=== PATIENT | male | born 1970 | race Caucasian/White ===

== ENCOUNTER → 2022-05-10 | Outpatient (CLI) | payer OTHER, SELFPAY ==
--- NOTE | 2022-05-10 14:40 | NEURO ---
NCS and/or EMG Patient Report Ordering Doctor: Vito Tse DATE OF SERVICE: 05/10/22 Indication: Bilateral lower extremity numbness, tingling and cold sensations. Superimposed, significant lower back pain. Findings: Nerve conduction studies were performed in the right and left lower extremities. The right peroneal motor study recording the extensor digitorum brevis showed an absent response. The right tibial motor study recording the abductor hallucis brevis showed an absent response. The right sural sensory response was absent. The right superficial peroneal sensory response was absent. The left peroneal motor study recording the extensor digitorum brevis showed an absent response. The left tibial motor study recording the abductor hallucis brevis showed an absent response. The left sural sensory response was absent. The left superficial peroneal sensory response was absent. Due to the absent responses in the lower extremities, the left radial sensory response was obtained. It showed a reduced amplitude, normal peak latency and normal conduction velocity. Needle EMG of the left lower extremity and paraspinal muscles was performed. No active denervation was present in any muscle, though insertional activity was increased in the medial gastrocnemius. Motor units were large amplitude and long duration in distal muscles. Several muscles were limited in activation (patient citing back pain). Impression: This is a markedly abnormal study. There is electrophysiologic evidence of a severe, generalized, sensorimotor, peripheral neuropathy. Due to the complete lack of motor responses in the lower extremities the primary pathophysiology (e.g. axonal, demyelinating, mixed) cannot be determined by this examination. In addition, there was no electrophysiologic evidence a superimposed lumbar radiculopathy. Ciro Hall D.O. Multi Select Codes Neurology Neurology Interp Codes: 45434-82 Musc test done w/n test comp (interp) and 90050-86 Nrv cndj test 9-10 studies (interp)
== END | disposition home or self-care (01) ==
PROVIDERS: Referring Provider Orthopaedic Surgery; Visit Provider Orthopaedic Surgery
DX: M47.26 Other spondylosis with radiculopathy, lumbar region (principal); R20.2 Paresthesia of skin
CPT/HCPCS: 95886; 95911

== ENCOUNTER → 2025-06-10 | Outpatient (CLI) | payer MEDICAID, SELFPAY ==
--- OUTSIDE RECORDS SUMMARY | 2025-06-10 09:10 | XMS RPT_ITS ---
Author Name Auto Generated Organization OHIP Support Name Relationship Address Phone LIZY WARREN Next of Kin [address] [place] [address] + ~([phone] LIZY WARREN Next of Kin [address] [place] [address] [place] [address] + ~(330 LIZY WARREN Next of Kin [address] [place] [address] + ~(330 LIZY WARREN Next of Kin [address] [place] [address] [place] [address] + ~(330 LIZY WARREN Next of Kin [address] [place] [address] [place] [address] + LIZY WARREN Next of Kin [address] [place] [address] [place] [address] + UN Next of Kin Unknown Unavailable LIZY WARREN Next of Kin [address] [place] [address] [place] [address] + ~(330 LIZY WARREN Next of Kin [address] [place] [address] [place] [address] + LIZY WARREN Next of Kin [address] [place] [address] [place] [address] + LIZY WARREN Next of Kin [address] [place] [address] [place] [address] + ~(330 JOBY WARREN Next of Kin [address] [place] [address] + LIZY WARREN Next of Kin [address] [place] [address] Unavailable NOT GIVEN Next of Kin Unknown Unavailable DRAWREBECCA, JOBY Next of Kin [address] [place] [address] + DRAWJEANIE FERNANDEZON Next of Kin [address] [place] [address] Unavailable NOT GIVEN Next of Kin Unknown Unavailable DRAWBRIDGE, LIZY Next of Kin [address] [place] [place] [address] + JEANIE WARRENON Next of Kin [address] [place] [address] + UN Next of Kin Unknown Unavailable DRAWJOBY FERNANDEZ Next of Kin [address] [place] [address] + LIZY WARREN Next of Kin [address] [place] [address] Unavailable NOT GIVEN Next of Kin Unknown Unavailable DRAWREBECCA, LIZY Next of Kin Unknown Unavailab le DRAWBRIDGE, JOBY Next of Kin Unknown Unavailab le DRAWJEANIE FERNANDEZON Next of Kin [address] [place] [address] + DRAWBRIDGEJEANIEON Next of Kin [address] [place] [address] + UN Next of Kin Unknown Unavailable DRAWJEANIE FERNANDEZON Next of Kin [address] [place] [address] + ~(330 DRAWBRIDGE, LIZY Next of Kin [address] [place] [address] + ~(330 DRAWBRIDGE, LIZY Next of Kin [address] [place] [address] + ~(330 DRAWBRIDGE, LIZY Next of Kin [address] [place] [address] + ~(330 DRAWBRIDGE, LIZY Next of Kin [address] [place] [address] + ~(330 DRAWBRIDGE, LIZY Next of Kin [address] [place] [address] + ~(330 DRAWBRIDGE, LIZY Next of Kin [address] [address] + ~(330 DRAWBRIDGE, LIZY Next of Kin [address] [facility] [address] + DRAWBRIDGE, LIZY Next of Kin [address] [place] [address] + UN Next of Kin Unknown Unavailable DRAWBRIDGE, LIZY Next of Kin Unknown Unavailab le DRAWBRIDGE, JOBY Next of Kin Unknown Unavailab le DRAWBRIDGE, LIZY Next of Kin [address] [place] [address] + DRAWBRIDGE, LIZY Next of Kin [address] [place] [address] + DRAWBRIDGE, LIZY Next of Kin Unknown Unavailab le DRAWBRIDGE, JOBY Next of Kin Unknown Unavailab le DRAWBRIDGE, LIZY Next of Kin Unknown Unavailab le DRAWBRIDGE, JOBY Next of Kin Unknown Unavailab le DRAWBRIDGE, JOBY Next of Kin [address] [place] [address] + DRAWBRIDGE, LIZY Next of Kin [address] [place] [address] Unavailable NOT GIVEN Next of Kin Unknown Unavailable DRAWBRIDGE, LIZY Next of Kin Unknown Unavailab le DRAWBRIDGE, JOBY Next of Kin Unknown Unavailab le DRAWBRIDGE, LIZY Next of Kin Unknown Unavailab le DRAWBRIDGE, JOBY Next of Kin Unknown Unavailab le DRAWBRIDGE, JOBY Next of Kin [address] [place] [address] + DRAWBRIDGE, LIZY Next of Kin [address] [place] [address] Unavailable NOT GIVEN Next of Kin Unknown Unavailable DRAWBRIDGE, LIZY Next of Kin [address] [place] [address] + DRAWBRIDGE, LIZY Next of Kin [address] [place] [address] + DRAWBRIDGE, LIZY Next of Kin [address] [place] [address] Unavailable LIDIA MAYERS Next of Kin [address] [place] [id number] + NOT GIVEN Next of Kin Unknown Unavailable DRAWBRIDGE, LIZY Next of Kin [address] [place] [address] Unavailable LIDIA MAYERS Next of Kin [address] [place], [place] [phone] + NOT GIVEN Next of Kin Unknown Unavailable Care Team Providers Care Meeting Manager Name Role Phone QUIJANO, VITO PAVO Primary Care Unavaila ble QUIJANO, VITO BUCKLEY Attending Unavaila ble SUTTER, VITO PAVO Referring Unavaila ble QUIJANO, VITO PAVO Primary Care Unavaila ble SUTTER, VITO BUCKLEY Attending Unavaila ble SUTTERVITO Referring Unavaila ble RICHARDSIFRAH TRIVEDI Referring Unavailable SUTTER [facility] Primary Care Unavaila ble RICHARDSIFRAH Attending Unavailable SUTTER [facility] Primary Care Unavaila ble RICHARDSIFRAH Attending Unavailable SUTTERVITO Attending Unavaila ble QUIJANO, VITO INA Referring Unavaila ble QUIJANO, [facility] Primary Care Unavaila ble RICHARDS, IFRAH Munson Attending Unavailable SUTTER [facility] Primary Care Unavaila ble RICHARDS, IFRAH Munson Attending Unavailable SUTTERVITO Referring Unavaila ble QUIJANO, VITO PAVO Primary Care Unavaila ble QUIJANO, VITO PAVO Primary Care Unavaila ble QUIJANO, VITO BUCKLEY Attending Unavaila ble QUIJANOVITO Referring Unavaila ble QUIJANO, [facility] Primary Care Unavaila ble RICHARDSIFRAH TRIVEDI Attending Unavailable SUTTER, VITO PAVO Referring Unavaila ble RICHARDS, IFARH Munson Attending Unavailable SUTTER, [facility] Primary Care Unavaila ble QUIJANO, VITO KRISHNAER Referring Unavaila ble QUIJANO, VITO BUCKLEY Attending Unavaila ble QUIJANO, VITO PAVO Primary Care Unavaila ble QUIJANO, VITO BUCKLEY Attending Unavaila ble QUIJANO, VITO PAVO Referring Unavaila ble [facility]AN[facility], [facility] Unavaila ble QUIJANO, VITO KRISHNAER Attending Unavaila ble QUIJANO, VITO PAVO Referring Unavaila ble QUIJANO, [facility] Primary Care Unavaila ble NAFZIGUNJAN PLUMMER, DR SHASHANK Fitzgerald Attending Unav ailable QUIJANO DO, [facility] Primary [facility] Unava ilable NAFZIGUNJAN DPShun, DR SHASHANK Fitzgerald Attending Unav ailable QUIJANO DO, [facility] Primary [facility] Unava ilable MASTRACCO DPShun, RADHA Nuñez Attending Unavai lable SUTTER DO, [facility] Primary Care Unava ilable [facility]O [facility], [facility] Un[facility] NAFZIGER DPM, DR SHASHANK Fitzgerald Attending Unav ailable MASTRACCO DPM, RADHA Nuñez Attending [facility] DO, [facility] Unava ilable SUTTER DO, [facility] Unava ilable NAFZIGER DPM, DR SHASHANK Fitzgerald Attending Unav ailable SUTTER DO, [facility] Unava ilable NAFZIGER DPM, DR SHASHANK Fitzgerald Attending Unav ailable SUTTER DO, [facility] Unava ilable NAFZIGER DPM, DR SHASHANK Fitzgerald Attending Unav ailable NAFZIGER DPM, DR SHASHANK Fitzgerald Attending Unav ailable SUTTER DO, [facility] Unava ilable NAFZIGER DPM, DR SHASHANK Fitzgerald Attending Unav ailable SUTTER DO, [facility] Unava ilable MASTRACCO DPM, RADHA Nuñez Attending [facility], [facility] Unava ilable LASCOLA DPM, JANE Carl Attending [facility]ab [facility], [facility] Unava ilable SUTTER DO, [facility] Unava ilable NAFZIGER DPM, DR SHASHANK Fitzgerald Attending Unav ailable BONI PONCHO Primary Care Unavailable PONCHO DIAS Attending Unavailable PONCHO DAIS Admitting Unavailable BONI PONCHO Primary Care Unavailable PONCHO DIAS Attending Unavailable PONCHO DIAS Admitting Unavailable BRADY GREENWOOD MD Admitting Unavailable BRADY GREENWOOD MD Primary Care Unavailable BRADY GREENWOOD MD Attending Unavailable JUDAH DAWSON Admitting Unavailable JUDAH DAWSON Primary Care Unavailable JUDAH DAWSON Attending Unavailable CISCO URRUTIA DO Admitting Unavailable CISCO URRUTIA DO Primary Care Unavailable CISCO URRUTIA DO Attending Unavailable LOREN REVELES MD Admitting Unavailable LOREN REVELES MD Primary Care Unavailable LOREN REVELES MD Attending Unavailable SANGITA LÓPEZ Admitting Unavailable SANGITA LÓPEZ Primary Care Unavailable SANGITA LÓPEZ Attending Unavailable [facility] Unavaila JANE Santos Attending Unavail able JANE GALLOWAY Admitting Unavail able SALVATORE GEORGES Attending Unavailable [facility] Unavaila JANE Santos Admitting Unavail able JANE GALLOWAY Referring Unavail able [facility] Unavaila ble SALVATORE GEORGES Attending Unavailable [facility] Unavaila ble SALVATORE GEORGES Attending Unavailable SALVATORE GEORGES Attending Unavailable [facility] Unavaila ble SALVATORE GEORGES Attending Unavailable SALVATORE GEORGES Referring Unavailable [facility] Unavaila ble PROBLEMS DATE TYPE CONDITION / CODE ATTENDING STATUS [facility] 05/04/2025 Admitting Diagnosis Cellulitis of right lower limb / I47090(ICD-10) BRADY GREENWOOD MD Active [facility] 05/04/2025 Principle Diagnosis Cellulitis of right lower limb / C80884(ICD-10) BRADY GREENWOOD MD Active [facility] 05/04/2025 Secondary Diagnosis Pneumonia, unspecified organism / J189(ICD-10) BRADY GREENWOOD MD [facility] 05/04/2025 Secondary Diagnosis Body mass index [BMI]40.0-44.9, adult / Z6841(ICD-10) BRADY GREENWOOD MD Active [facility] 05/04/2025 Secondary Diagnosis Migraine, unspecified, not intractable, without status migrainosus / F79615(ICD-10) BRADY GREENWOOD MD Active [facility] 05/04/2025 Secondary Diagnosis Hyperlipidemia, unspecified / E785(ICD-10) BRADY GREENWOOD MD [facility] 05/04/2025 Secondary Diagnosis Gout, unspecified / M109(ICD-10) BRADY GREENWOOD MD Active [facility] 05/04/2025 Secondary Diagnosis Corns and callosities / L84(ICD-10) BRADY GREENWOOD MD Active [facility] 05/04/2025 Secondary Diagnosis Hypomagnesemia / E8342(ICD-10) BRADY GREENWOOD MD Active [facility] 05/04/2025 Secondary Diagnosis Hypertensive chronic kidney disease with stage 1 through stage 4 chronic kidney disease, or unspecified chronic kidney disease / I129(ICD-10) BRADY GREENWOOD MD Active [facility] 05/04/2025 Secondary Diagnosis Chronic kidney disease, unspecified / N189(ICD-10) BRADY GREENWOOD MD Active [facility] 05/04/2025 Secondary Diagnosis Polyneuropathy, unspecified / G629(ICD-10) BRADY GREENWOOD MD Active [facility] 05/04/2025 Secondary Diagnosis Obesity, unspecified / E669(ICD-10) BRADY GREENWOOD MD Active [facility] 05/04/2025 Secondary Diagnosis Personal history of transient ischemic attack (TIA), and cerebral infarction without residual deficits / Z8673(ICD-10) BRADY GREENWOOD MD Active [facility] 05/04/2025 Secondary Diagnosis Personal history of other venous thrombosis and embolism / W30958(ICD-10) BRADY GREENWOOD MD Active [facility] 05/04/2025 Secondary Diagnosis 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 / Z7901(ICD-10) BRADY GREENWOOD MD Active [facility] 05/04/2025 Secondary Diagnosis [facility] (current) use of aspirin / Z7982(ICD-10) BRADY GREENWOOD MD Active [facility] 03/21/2025 Admitting diagnosis Personal history of transient ischemic attack (TIA), and cerebral infarction without residual deficits / Z86.73(ICD-10) SALVATORE GEORGES Active [facility] 12/12/2024 Admitting diagnosis Pleurodynia / R07.81(ICD-10) SALVATORE GEORGES Active [facility] 08/31/2024 Admitting diagnosis Headache, unspecified / R51.9(ICD-10) SALVATORE GEORGES Active [facility] 08/31/2024 Admitting diagnosis Other chronic pain / G89.29(ICD-10) SALVATORE GEORGES Active [facility] 05/09/2024 Admitting diagnosis 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 / I63.49(ICD-10) JANE GALLOWAY Active [facility] 06/14/2024 Admitting Diagnosis Headache, unspecified / R519(ICD-10) LOREN REVELES MD Active [facility] 06/14/2024 Principle Diagnosis Headache, unspecified / R519(ICD-10) LOREN REVELES MD Active [facility] 06/14/2024 Secondary Diagnosis Other acute osteomyelitis, unspecified ankle and foot / X30422(ICD-10) LOREN REVELES MD Active [facility] 06/14/2024 Secondary Diagnosis 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 / H32075(ICD-10) LOREN REVELES MD Active [facility] PROCEDURES No Procedure Records Found RESULTS OPERATIVE NOTE Observed: 05/27/2025 10:19 AM Status: F Source: [facility] [address] [place] [id number] HEALTH INFORMATION MANAGEMENT OPERATIVE REPORT : [id number] Signed Patient: KASI WARREN Acct:[id number] MRUN: [id number] : 1970 Sex: M Loc: SDS ADM Date: Room/Bed: DISC Date: 05/21/25 Procedure - PROCEDURES PERFORMED laparoscopic bilateral inguinal hernia repair with mesh PROCEDURE NOTE: Patient was taken to operating room and laid in supine position. After induction of anesthesia, the abdomen was prepped and draped in sterile fashion. Time-out was performed and an initial left mid abdominal stab incision was made with scalpel. A 5 mm Optiview trocar was inserted into the abdomen under direct vision of the abdominal wall layers, while lifting the abdominal wall with towel clamps. Once in the abdomen, pneumoperitoneum was established. Initial findings revealed some adhesions in the lower midline, consistent with prior reported exploratory laparotomy. At this point another 5 mm trocar was placed in the right midabdomen and a 12 mm trocar in the supraumbilical location. I took down the omental adhesions retalively easily with minimal blood loss using a hot maryland dissector. Once the adhesions were taken down and was able to noticed bilateral small indirect inguinal hernias. The hernia contents had reduced spontaneously during the pneumoperitoneum. At this point, I began developing a flap of peritoneum on the right side superior to the hernia defect and a preperitoneal plane was developed down approximately 2 cm below the pubic symphysis. The flap was then extended to the left side taking down both median umbilical ligaments. There were no obturator or femoral hernias. The preperitoneal dissection was then continued laterally along the iliopubic tract, and reducing the hernia sac. The vas and spermatic vessels were skeletonized and the peritoneum was retracted downward. At this point the meshes were inserted into the abdomen, placed in the preperitoneal pockets covering the hernia defects an entire groins. The meshes were secured to the abdominal wall using the Optifix device. Three tacks were placed in the lacunar ligament region, rectus muscle and just lateral to the inferior epigastric vessels. The meshes were then covered with the peritoneum with additional tacks, making sure no mesh was exposed. Finally, the fascia of the 12 mm trocar was reapproximated with 2-0 Vicryl suture using the Dale-Emmie suture Passer. Remaining trocars were removed and pneumoperitoneum was recreated. Local anesthetic was injected into the skin and subcutaneous tissue and this skin size were reapproximated with 4-0 Monocryl subcuticular fashion. Dermabond was applied. The patient tolerated the procedure well and was awakened, extubated and taken to recovery unit though condition. COMPLICATIONS: none Hot biopsy forceps: N/A Biopsy forceps: N/A Snare: N/A Needle Injection: N/A DATE OF SERVICE: 05/21/25 SURGEON: IFRAH RICHARDS DOOR SLINGER: none LENS GAUGER: ILANA GUARDADO TYPE OF ANESTHESIA: General Preoperative Diagnosis: bilateral inguinal hernia Postoperative Diagnosis: same Allergies/Adverse Reactions: No Known Allergies Allergy (Verified 05/21/25 08:50) IMPRESSION: small bilateral indirect inguinal hernias. Repaired using Large Bard 3DMAX mesh. JHON FOLLOW-UP: Two Weeks NEW ORDERS: Medications 05/21/25 08:37 Normal Saline 0.9% 1000 ml [Sodium Chloride 0.9 % 1000 ml] 1,000 ml IV 50 mls/hr Brief Surgical History Patient is a 54-year-old male who was seen in the surgery clinic because of abdominal pain. He had a CT few months ago that show bilateral small inguinal hernias. The patient has been having pain in this area which affected his walking. I therefore recommended proceeding with bilateral inguinal hernia repair. EBL (mls): 10 Suture Size/Type: Other (4-0 monocryl) Dressing: Dermabond Medications: Yes (see anesthesia record) Post-procedure instrument and sponge count correct?: Yes Specimen Sent to Lab: No Electronically Generated By: IFRAH RICHARDS MD Generated Date/Time: 05/21/25 1423 Electronically Signed By: <Electronically signed by IFRAH RICHARDS MD> 05/27/25 1019 Co Signed Electronically By: Co Signed Date/Time: CC: VITO QUIJANO DO; IFRAH RICHARDS MD COMPREHENSIVE METABOLIC PANEL Collected : 05/15/2025 10:17 AM Status: F Source: [facility] TYPE CODE TESTS RESULT OUT OF RANGE REFERENCE UNITS LAB NA(LOINC) Sodium 145 132-145 mmol/L LAB K(LOINC) Potassium 4.4 3.3-5.1 mmol/L LAB CLI(LOINC) Chloride 107 94-110 mmol/L LAB TCO2(LOINC) Total Co2 32 21-34 mmol/L LAB GLU(LOINC) Glucose 102 High 65-100 mg/dL LAB BUN(LOINC) BUN 19.8 3.2-26.9 mg/dL LAB CREAT(LOINC) Creatinine 1.40 High 0.50-1.17 mg/dL LAB CA(LOINC) Calcium 9.0 8.2-10.0 mg/dL LAB ALB(LOINC) Albumin 3.3 Low 3.4-5.0 g/dL LAB TP(LOINC) Protein 6.9 6.1-8.2 g/dL LAB TBIL(LOINC) Total Bilirubin 0.70 0.00-0.99 mg/dL LAB ALP(LOINC) Alkaline Phosphatase 171 High 54-112 U/L LAB ALT(LOINC) ALT (SGPT) 28 13-66 U/L LAB AST(LOINC) AST (SGOT) 20 3-39 U/L LAB AGAP(LOINC) Anion Gap 10.4 8.0-16.0 mmol/L LAB B-C(LOINC) BUN/CREAT Ratio 14 6-20 LAB A-G(LOINC) A/G Ratio 0.9 Low 1.1-2.5 LAB GLOB(LOINC) Globulin 3.6 1.5-4.5 g/dL LAB EGFR4(LOINC) EGFR Other Races 53 Abnormal >60 LAB EGFR5(LOINC) EGFR >60 >60 Result Comment: Chronic Kidn ey Disease less than 60 mL/min/1.73 m2 Kidney Failure less than 15 mL/min/1.73 m2 Average estimated GFR by age: 50-59 years 93 mL/min/1.73 m2 Performed By: #### CMP #### [address] [address] CBC W/AUTO DIFFERENTIAL Collected: 05/15/2025 10:17 A M Status: F Source: [facility] TYPE CODE TESTS RESULT OUT OF RANGE REFERENCE UNITS LAB WBCS(LOINC) WBC 9.1 3.6-10.8 K/uL LAB RBC(LOINC) RBC 4.99 4.13-5.69 M/uL LAB HGB(LOINC) HGB 14.3 12.4-17.3 g/dL LAB HCT(LOINC) HCT 43.6 36.7-50.6 % LAB MCV(LOINC) MCV 87.4 80.0-94.0 fL LAB MCH(LOINC) MCH 28.7 27.0-31.0 pg LAB MCHC(LOINC) MCHC 32.8 Low 33.0-37.0 g/dL LAB RDW(LOINC) RDW 14.3 11.5-14.5 % LAB PLTI(LOINC) Platelet Count 180 148-402 K/uL LAB MPV(LOINC) MPV 10.3 7.4-10.4 fL LAB ASEGR(LOINC) Neutrophils Abs. # 5.94 High 2.20-4.80 K/uL LAB ALYMR(LOINC) Lymphocytes Abs. # 2.10 1.30-2.90 K/uL LAB AMONR(LOINC) Monocytes Abs. # 0.60 0.30-0.80 K/uL LAB ABASR(LOINC) Basophils Abs. # 0.04 0.00-0.10 K/uL LAB AEOSR(LOINC) Eosinophils Abs. # 0.30 High 0.00-0.20 K/uL LAB AIMGR(LOINC) Imm Grans Absolute # 0.03 0.00-0.10 K/uL LAB SEGR(LOINC) Neutrophils % 65.6 High 43.0-65.0 % LAB LYMPR(LOINC) Lymphocytes % 23.4 17.0-45.5 % LAB MONOR(LOINC) Monocytes % 6.6 5.5-11.7 % LAB BASOR(LOINC) Basophils % 0.4 0.2-1.0 % LAB EOSR(LOINC) Eosinophils % 3.7 High 0.9-2.9 % LAB IMGR(LOINC) Imm Grans % 0.30 0.00-1.00 % Performed By: #### CBCS #### [address] [address] CWD Observed: 05/05/2025 5:00 AM Status: F Source: [facility] . MICRO - Microbiology PROCEDURE: Culture Wound Aerobic with Gram Stain [*1] SOURCE: Wound (surface) BODY SITE: Foot R COLLECTED DATE/TIME: 05/05/2025 05:00 EDT RECEIVED DATE/TIME: 05/05/2025 15:23 EDT START DATE/TIME: 05/05/2025 15:24 EDT FREE TEXT SOURCE: Lateral side FINAL REPORTS Final Report [] Verified Date/Time/Personnel: 05/08/2025 10:53 EDT Light Staphylococcus aureus PRELIMINARY REPORTS Preliminary Report [] Verified Date/Time/Personnel: 05/07/2025 07:40 EDT Light Staphylococcus aureus RENÉE to follow Preliminary Report [] Verified Date/Time/Personnel: 05/06/2025 10:51 EDT Culture results pending. STAINS GS [] Verified Date/Time/Personnel: 05/05/2025 17:20 EDT No organisms seen. SUSCEPTIBILITY RESULTS Staphylococcus aureus Antibiotic RENÉE Dilut RENÉE Inter Ampicillin/ <=8/4 Susceptible Sulbactam Azithromycin <=2 Susceptible Cefazolin <=8 Susceptible Ceftriaxone <=4 Susceptible Ciprofloxacin <=1 Susceptible Clindamycin <=0.25 Susceptible Erythromycin <=0.25 Susceptible Levofloxacin <=1 Susceptible Oxacillin <=0.25 Susceptible Penicillin <=0.03 Susceptible Tetracycline <=4 Susceptible Trimethoprim/ <=0.5/9.5 Susceptible Sulfa Vancomycin 1 Susceptible Performing Locations *1: This test was performed at: [facility], [address] [place] [address], [id number]- , CULTURE WOUND [[id number]] Observed: 2024 5:00 AM Status: F Source: [facility] CULTURE WOUND [[email or web address]] _W[facility] CULT[facility]_ [facility] AND ATTACHMENTS FOR SCANNED REPORT 05/09/[email or web address] Performed By: #### [id number] ## ## [facility],[address] [place] [address] CBC + DIFF Collected: 5:00 AM Status: F Source: [facility] TYPE CODE TESTS RESULT OUT OF RANGE REFERENCE UNITS LAB CBC + DIFF(LOINC) CBC + DIFF Result Comment: CBC-COMPLETE BLOOD COUNT LAB WBC(LOINC) WBC 10.3 4.5 - 10.8 x 10EE3/UL LAB RBC(LOINC) RBC 4.69 4.50 - 6.00 x 10EE6/UL LAB HEMOGLOBIN([place]AN[place]) HEMOGLOBIN 14.1 13.0 - 17.5 g/dl LAB HEMATOCRIT([place]AN[place] NC) HEMATOCRIT 41.1 40.0 - 52.0 % LAB MCV(LOINC) MCV 88 81 - 98 fl LAB MCH(LOINC) MCH 30 27 - 33 pg LAB MCHC(LOINC) MCHC 34 32 - 36 X10 3 LAB RDW/CV(LOINC) RDW/CV 15.1 12.0 - 15.6 % LAB PLATELET(LOINC ) PLATELET 145 Low 150 - 450 x10EE3/UL LAB MPV(LOINC) MPV 8.1 6.4 - 10.5 fl Result Comment: AUTOMATED DI FFERENTIAL LAB NEUT %(LOINC) NEUT % 81.1 High 46.0 - 76.0 % LAB LYMPH %(LOINC) LYMPH % 10.3 Low 20.0 - 45.0 % LAB MONOS %(LOINC) MONOS % 4.9 0.0 - 10.0 % LAB EO %(LOINC) EO % 3.4 0.0 - 7.0 % LAB BASO %(LOINC) BASO % 0.3 0.0 - 2.0 % LAB Lymph #(LOINC) Lymph # 1.06 0.80 - 2.80 x10EE 3/UL LAB Neut #(LOINC) Neut # 8.37 High 1.50 - 7.10 x10EE3 /UL LAB [place] #(LOINC) [place] # 0.50 0.20 - 1.00 x10EE3 /UL LAB EO #(LOINC) EO # 0.35 0.00 - 0.50 x10EE3/U L LAB Baso #(LOINC) Baso # 0.03 0.00 - 0.10 x10EE3 /UL LAB MANUAL DIFF(LOINC) MANUAL DIFF N/A LAB MORPHOLOGY(CHANTE NC) MORPHOLOGY N/A Performed By: #### [id number] ## ## [facility],[address] [place] [address] BMP WITH EGFR Collected: 05/05/2025 5:00 AM Status: F Source: [facility] TYPE CODE TESTS RESULT OUT OF RANGE REFERENCE UNITS LAB BMP with eGFR(LOINC) BMP with eGFR Result Comment: BASIC METABO LIC PANEL LAB SODIUM(LOINC) SODIUM 142 136 - 145 mmol/l LAB POTASSIUM(LOINC ) POTASSIUM 3.7 3.5 - 5.1 mmol/L LAB CHLORIDE(LOINC) CHLORIDE 105 98 - 107 mmol/L LAB CO2(LOINC) CO2 27.5 21.0 - 32.0 mmol/L LAB GLUCOSE(LOINC) GLUCOSE 106 74 - 106 mg/dl LAB BUN(LOINC) BUN 20 High 7 - 18 mg/dl LAB CREATININE(LOIN C) CREATININE 1.60 High 0.70 - 1.30 mg/dl LAB CALCIUM(LOINC) CALCIUM 8.2 Low 8.5 - 10.1 mg/dl LAB ANION GAP(LOINC) ANION GAP 13 10 - 20 mmol/L LAB AGE(LOINC) AGE 54 years LAB eGFR(LOINC) eGFR 45 Low 60 - 999 ML/MINUTE LAB eGFR(AA)(LOINC) eGFR(AA) 55 Low 60 - 999 ML/MIN IONE Result Comment: ACCORDING TO THE NATIONAL KIDNEY DISEASE EDUCATION PROGRAM(NKDE), A NORMAL eGFR IS A VALUE GREATER THAN OR EQUAL TO 60 ML/MIN/1.73 SQ METERS. CHRONIC KIDNEY DISEASE: <60mL/MIN/1.73 SQ METERS KIDNEY FAILURE: <15mL/MIN/1.73 SQ METERS THIS TEST SHOULD ONLY BE USED FOR PATIENTS 18 YEARS OF AGE AND OLDER. Performed By: #### [id number] ## ## [address] [address] SEDRATE Collected: 5:00 AM Status: F Source: [facility] TYPE CODE TESTS RESULT OUT OF RANGE REFERENCE UNITS LAB SEDRATE(LOINC) SEDRATE 13 0 - 20 mm/hr Performed By: #### [id number] ## ## [address] [address] URIC ACID Collected: 5:00 AM Status: F Source: [facility] TYPE CODE TESTS RESULT OUT OF RANGE REFERENCE UNITS LAB URIC ACID(LOINC) URIC ACID 6.9 3.5 - 7.2 mg/ dl Performed By: #### [id number] ## ## [address] [address] MAGNESIUM Collected: 5:00 AM Status: F Source: [facility] TYPE CODE TESTS RESULT OUT OF RANGE REFERENCE UNITS LAB MAGNESIUM(LOINC) MAGNESIUM 1.7 Low 1.8 - 2.4 mg/ dl Performed By: #### [id number] ## ## [address] [address] ED ORDER SHEET (CPOE ONLY) Observed: 1:22 AM Status: F Source: [facility] Order Sheet - ANDRÉS WARREN, : 1970, , Order Sheet [address] [address] [id number] 05/04/2025 Patient: KASI WARREN Sex: Male : 1970 Age: 54y MEASUREMENTS: Wt: 135.2 kg, Ht/Conrado: 70.0 in, BMI: 42.76 ALLERGIES: No known drug allergies MEDICATION/IV/DRIP/FLUID ORDERS Order Description Priority Entered Acknowledged Completed IV NS 0.9 %1000 mL at 999 21:05/04/2025 21:15 21:28 mL/hr (NOW x1) Matt Braxton, 05/04/2025 05/04/2025 Adrianna Morton, R.N. Piperacillin-Tazobac (Zosyn) 21:01 05/04/2025 21:15 21:30 IVPB 3.375gm/50ml NS3.375 g Matt Braxton, 05/04/2025 05/04/2025 diluted in sodium chloride IVPB Adrianna Morton, R.N. 0.9 % Minibag+ 50 mL at 100 mL/hr (NOW x1) Reason for ordering with alerts: Benefits outweigh risks --21:01 05/04/2025 Matt Braxton D.O. Vancomycin 1 gm/NS 200ml 21:05/04/2025 21:15 22:14 IVPB Premix1 g at 200 mL/hr Matt Braxton, 05/04/2025 05/04/2025 (NOW x1) Adrianna Morton, R.N. Reason for ordering with alerts: Benefits outweigh risks --21:01 05/04/2025 Matt Braxton D.O. Acetaminophen (Tylenol) 21:05/04/2025 21:15 21:35 1 of 4 Order Sheet - KEYONNAREBECCAKASI, : 1970, , PO975 mg (NOW x1) Matt Braxton, 05/04/2025 05/04/2025 Adrianna Morton R.N. Prochlorperazine (Compazine) 21:05/04/2025 21:15 21:33 IVP10 mg (NOW x1) Matt Braxton, 05/04/2025 05/04/2025 D.OAdrianna Mcleod R.N. DiphenhydrAMINE (Benadryl) 21:01 05/04/2025 21:15 21:31 IVP50 mg (NOW x1) Matt Braxton, 05/04/2025 05/04/2025 D.OAdrianna Mcleod R.N. LAB ORDERS Order Description Priority Entered Acknowledged Collected Completed EKG - ED Stat Stat 21:05/04/2025 21:14 05/04/2025 21:36 05/04/2025 Maurice Shabazz R.N. Seth Lapp, R.N. D.OKrystle Lactate, Serum Stat Stat 21:01 05/04/2025 21:15 05/04/2025 Maurice Shabazz R.N. D.O. CMP Stat Stat 21:01 05/04/2025 21:14 05/04/2025 Maurice Shabazz R.N. D.O. CBC w Diff Stat Stat 21:01 05/04/2025 21:14 05/04/2025 Maurice Shabazz R.N. D.O. Blood Culture Stat 21:01 05/04/2025 21:14 05/04/2025 [Kermit] # 1 Stat Maurice Shabazz R.N. 2 of 4 Order Sheet - BRIANA KASI, : 1970, , D.O. Urinalysis Stat Stat 21:01 05/04/2025 21:15 05/04/2025 22:06 05/04/2025 Maurice Shabazz R.N. Seth Lapp, R.N. D.OKrystle Urine Culture [CCL] Stat Stat 21:01 05/04/2025 21:15 05/04/2025 22:06 05/04/2025 Maurice Shabazz R.N. Seth Lapp, R.N. D.OKrystle Blood Culture Stat 21:01 05/04/2025 21:14 05/04/2025 [Kermit] # 2 Stat Maurice Shabazz R.N. D.OKrystle DIAGNOSTIC STUDY ORDERS Order Description Priority Entered Acknowledged Completed Chest 1V Stat Stat 21:01 05/04/2025 21:15 23:06 Matt Braxton, 05/04/2025 05/04/2025 Adrianna Morton R.N. Reason for Study: Pneumonia CT Brain wo Cont Stat Stat 21:01 05/04/2025 21:15 23:06 Matt Braxton, 05/04/2025 05/04/2025 Adrianna Morton R.N. Reason for Study: Headache CTA Head [place] of [place] w Stat 21:01 05/04/2025 21:15 23:06 Recons Stat Matt Braxton, 05/04/2025 05/04/2025 Millicent.OAdrianna Mcleod RKrystleNKrystle Reason for Study: headache 3 of 4 Order Sheet - KASI WARREN, : 1970, , CTA Carotids w IVC Recons Stat 21:01 05/04/2025 21:15 23:06 Stat Matt Braxton, 05/04/2025 05/04/2025 Adrianna Morton, RKrystleNKrystle Reason for Study: headache STAFF ORDERS Order Description Priority Entered Acknowledged Collected Completed Vitals 21:01 05/04/2025 21:15 05/04/2025 Maurice Shabazz R.N. D.OKrystle Ntfy if Abnml Vitals 21:01 05/04/2025 21:15 05/04/2025 Maurice Shabazz R.N. D.O. Retort Setter 21:01 05/04/2025 21:15 05/04/2025 Maurice Shabazz R.N. D.O. [Electronically signed by Matt Braxton D.O. (05/05/2025 01:22 EDT)] 4 of 4 ED SUPER BILL Observed: 05/05/2025 1:22 AM Status: F Source: [facility] SHON WARREN, : 1970, , [address] [address] [id number] 05/04/2025 Patient: KASI WARREN Sex: Male : 1970 Age: 54y Facility Professional Category Item Description Code Code Quantity Fee Total Drugs Normal Saline 770208 1 $0.00 $0.00 1000cc (473768) Nurse/E/M EMERGENCY 808242 1 $0.00 $0.00 DEPT VISIT HIGH SEVERITYFUNCJ (74983-12) Nurse/IV/IM/Infusions Drip/IVPB initial 023902 1 $0.00 $0.00 (65369) Nurse/IV/IM/Infusions Drip/IVPB seq 739741 1 $0.00 $0.00 (25516) Nurse/IV/IM/Infusions IVP additional 459227 2 $0.00 $0.00 push (65662) Grand $0.00 Total Providers Matt Braxton D.O. Chief Complaint 1 of 2 [facility] - KASI WARREN, : 1970, , HEADACHE. Principal Diagnosis (Pneumonia, sepsis). 2 of 2 ED NURSES CLINICAL NOTE Observed: 2024 1:22 AM Status: F Source: [facility] Nurse Freda KASI WARREN, : 1970, , Nurse Clinical [address] [address] [id number] 05/04/2025 20:11:00 Patient: KASI WARREN Sex: Male : 1970 Age: 54y Disposition: Admit to [facility] Disposition Decision Time: 01:05/05/2025 Departure Time: 02:05/05/2025 TRIAGE Arrived by private vehicle. Historian: (patient and family). Accompanied by family. Patient has a primary care physician. Primary physician (Quijano). Triage time: 20:12 05/04/2025. Acuity: LEVEL 2. Chief Complaint: FEVER and SINUS CONGESTION, CHILLS and FATIGUE. Alert. This started today. The patient has had a headache. SEPSIS SCREEN: POSITIVE. SIRS criteria positive: temperature greater than 38 degrees C (100.4 degrees F) and heart rate greater than 90. Possible sources of infection: COVID-19. Provider notified. -- 20:22 05/04/25 EDT Damián Daniels R.N. 20:12 05/04/25. BP: 142/79 MAP: 100. HR: 102. RR: 20. O2 saturation: 94% Temperature: 100.8 F (oral). Pain level now 10/10. -- 20:14 05/04/25 EDT Damián Daniels R.N. Measurements: 20:21 05/04/25 Wt: 135.2 kg, Ht/Conrado: 70.0 in, BMI: 42.76 -- 20:21 05/04/25 EDT Damián Daniels R.N. Medications: lisinopril 20 mg tablet: 20 mg once a day . -- 20:17 05/04/25 EDT Damián Daniels R.N. 1 of 5 Nurse Narrative - KASI WARREN, : 1970, , tamsulosin 0.4 mg capsule: 0.4 mg once a day . -- 20:17 05/04/25 GRUPOT Damián Daniels R.N. ascorbic acid (vitamin C) 500 mg tablet: 500 mg once a day . -- 20:17 05/04/25 GRUPOT Damián Daniels R.N. allopurinol 100 mg tablet: 100 mg once a day . -- 20:17 05/04/25 PAVITHRA Daniels R.N. aspirin 81 mg capsule: 81 mg once a day . -- 20:17 05/04/25 PAVITHRA Daniels R.N. atorvastatin 40 mg tablet: 40 mg once a day . -- 20:18 05/04/25 PAVITHRA Daniels R.N. carvedilol 25 mg tablet: 12.5 mg twice a day . -- 20:18 05/04/25 PAVITHRA Daniels R.N. Eliquis 5 mg tablet: 5 mg twice a day . -- 20:18 05/04/25 GRUPOT Damián Daniels R.N. gabapentin 300 mg capsule: 300 mg three times a day . -- 20:18 05/04/25 PAVITHRA Daniels R.N. OLANZapine 5 mg tablet: 5 mg once a day at bedtime. -- 20:19 05/04/25 PAVITHRA Daniels R.N. memantine 10 mg tablet: 10 mg twice a day . -- 20:20 05/04/25 GRUPO Damián Daniels R.N. omeprazole 40 mg capsule,delayed release: 40 mg once a day . -- 20:20 05/04/25 PAVITHRA Daniesl R.N. 20:12 05/04/25. Preferred Pharmacy: [facility]). -- 20:22 05/04/25 PAVITHRA Daniels R.N. Allergies: no known drug allergies -- 20:16 05/04/25 PAVITHRA Daniels R.N. Problems: CVA - Cerebrovascular Accident -- 20:20 05/04/25 PAVITHRA Daniels R.N. Hypertension: Active -- 20:20 05/04/25 PAVITHRA Daniels R.N. Migraine with aura: Active -- 20:20 05/04/25 PAVITHRA Daniels R.N. Gout -- 20:20 05/04/25 GRUPOT Damián Daniels R.N. Neuropathy: Active -- 20:20 05/04/25 PAVITHRA Daniels R.N. DVT - Deep Venous Thrombosis -- 20:20 05/04/25 GRUPOT Damián Daniels R.N. Hypercholesterolemia -- 20:20 05/04/25 EDT Damián Daniels R.N. Surgeries: Right Patella -- 20:21 05/04/25 GRUPOT Damián Daniels R.N. Previous Abdominal Surgery -- 20:21 05/04/25 GRUPOT Damián Daniels R.N. Hemorrhoidectomy -- 20:21 05/04/25 GRUPOT Damián Daniels R.N. History 20:12 05/04/25. SOCIAL HX: Never smoker. No alcohol use or drug use. The patient has not traveled outside the [place] 2 of 5 Nurse Narrative - KEYONNAREBECCAKASI, : 1970, , Infectious disease exposure: No infectious disease exposure. ABUSE ASSESSMENT: The patient answered "yes" to the question(s) "Do you feel safe in your home?" and "no" to the question(s) "Are you afraid to go home?". SELF HARM ASSESSMENT: Self harm assessment was performed. The patient answered no to the question(s) "Have you recently felt down, depressed, or hopeless?" and "Do you have thoughts of harming or killing yourself?". FALL RISK ASSESSMENT: Fall risk assessment completed. Risk factors identified include patient impairment of mobility. -- 20:05/04/25 GRUPOT Damián Daniels R.N. Interventions 20:12 05/04/25. Identification band on patient. -- 20:05/04/25 EDT Damián Daniels R.N. PHYSICAL ASSESSMENT 21:39 05/04/25. Ambulatory to room. ( fever, migraine type headache, shakey.). GENERAL / NEURO / PSYCH: Alert. Oriented X 4. Appears in no acute distress. HEENT: Pupils equal, round and reactive to light. RESPIRATORY: Respirations not labored. -- 22:05/04/25 EDT Maurice Kyle R.N. NURSING PROGRESS NOTES 21:27 05/04/25. IV NS 0.9 % 1000 mL started in bag#1 1000 mL at 999 mL/hr via Site# 1. Allergies verified and confirmed 5 rights. Via dial-a-flow. IV patency established. IV site checked: no pain, redness, or swelling. IV flushed thoroughly pre-medication administration. Information reviewed with patient including reason for taking this medication. Verbalizes understanding. -- 21:28 05/04/25 GRUPOT Maurice Kyle R.N. 21:29 05/04/25. Piperacillin-Tazobac (Zosyn) IVPB 3.375gm/50ml NS 3.375 g started at 100 mL/hr diluted in sodium chloride IVPB 0.9 % Minibag+ 50 mL via Site# 1. Allergies verified and confirmed 5 rights. Via dial-a-flow. IV patency established. IV site checked: no pain, redness, or swelling. IV flushed thoroughly pre-medication administration. Information reviewed with patient including reason for taking this medication. Verbalizes understanding. -- 21:30 05/04/25 EDT Maurice Kyle R.N. 21:31 05/04/25. DiphenhydrAMINE (Benadryl) IVP 50 mg given via Site# 1. Allergies verified and confirmed 5 rights. IV patency established. IV site checked: no pain, redness, or swelling. IV flushed thoroughly pre-medication administration. Information reviewed with patient including reason for taking this medication. Verbalizes understanding. -- 21:31 05/04/25 EDT Maurice Kyle R.N. 3 of 5 Nurse Narrative - KASI WARREN DOB: 1970, , 21:32 05/04/25. Prochlorperazine (Compazine) IVP 10 mg given via Site# 1. Allergies verified and confirmed 5 rights. IV patency established. IV site checked: no pain, redness, or swelling. IV flushed thoroughly pre-medication administration. Information reviewed with patient including reason for taking this medication. Verbalizes understanding. -- 21:33 05/04/25 PAVITHRA Kyle R.N. 21:34 05/04/25. Acetaminophen (Tylenol) PO 975 mg given. Allergies verified and confirmed 5 rights. Information reviewed with patient including reason for taking this medication. Verbalizes understanding. -- 21:35 05/04/25 GRUPOT Maurice Kyle R.N. 21:49 05/04/25. Urine collected. -- 22:04 05/04/25 EDT Maurice Kyle R.N. 22:00 05/04/25. Piperacillin-Tazobac (Zosyn) IVPB 3.375gm/50ml NS: Medication Discontinued. IV completed. Total amount infused: 50 mL. IV patency established. IV site checked: no pain, redness, or swelling. IV flushed thoroughly post-medication administration. -- 22:15 05/04/25 PAVITHRA Kyle R.N. 22:04 05/04/25. Two patient identifiers checked. Call light placed in reach. Side rails up x 2. Bed placed in lowest position. Brakes of bed on. -- 22:04 05/04/25 PAVITHRA Kyle R.N. 22:12 05/04/25. Vancomycin 1 gm/NS 200ml IVPB Premix 1 g started at 200 mL/hr via Site# 1. Allergies verified and confirmed 5 rights. Via IV pump. IV patency established. IV site checked: no pain, redness, or swelling. IV flushed thoroughly pre-medication administration. Information reviewed with patient including reason for taking this medication. Verbalizes understanding. -- 22:14 05/04/25 PAVITHRA Kyle R.N. 22:42 05/04/25. Patient transported to radiology and CT by stretcher with donor services technician. -- 23:07 05/04/25 PAVITHRA Kyle R.N. 23:06 05/04/25. IV NS 0.9 %: Medication Discontinued. bag #1 completed. Total amount infused: 1000 mL. IV patency established. IV site checked: no pain, redness, or swelling. IV flushed thoroughly post-medication administration. -- 23:06 05/04/25 EDGay Kyle R.N. DISPOSITION / DISCHARGE 21:03 05/04/25. Site #1 started in the right antecubital space with an 18g needle with aseptic technique and good blood return; 1 attempt. Blood drawn: rainbow set and barrow tube(s) and cultures x 1. Labeled in the presence of the patient and sent to the lab. Saline lock flushed with 5 mL saline. -- 21:28 05/04/25 PAVITHRA Kyle R.N. 23:15 05/04/25. Vancomycin 1 gm/NS 200ml IVPB Premix: Medication Discontinued. IV completed. Total amount infused: 200 mL. IV patency established. IV site checked: no pain, redness, or swelling. IV flushed thoroughly post-medication administration. -- 03:31 05/05/25 EDT Maurice Kyle R.N. 02:26 05/05/25. Site #[address] upon admission; patent, no pain, no signs of infection and no signs of infiltration. -- 03:31 05/05/25 EDT Maurice Kyle R.N. 02:30 05/05/25. BP: 119/72 MAP: 80 mmHg. HR: 70 bpm. -- 03:28 05/05/25 EDT Maurice Kyle R.N. Departure time: 02:33 05/05/2025. Condition at departure: improved and stable. No learning barriers present. Report was given to a nurse via a phone call. Report included information regarding patient's care and treatment and abnormal labs. Report included treatment information regarding medications given in the ED. All questions were answered. Report was acknowledged and care was transferred (med surg). -- 03:29 05/05/25 EDT Maurice Kyle R.N. 4 of 5 Nurse Narrative - KASI WARREN, : 1970, , (Electronically signed by Maurice Kyle R.N. 05/05/25 03:31:55 EDT) Generated by [facility] 5 of 5 ED VITALS FLOW SHEET Observed: 1:22 AM Status: F Source: [facility] Vitals - KASI WARREN , : 1970, , Vital Sign Flow Sheet [address] [address] [id number] 05/04/2025 Patient: KASI WARREN Sex: Male : 1970 Age: 54y Measurements Wt: 135.2 kg, Ht/Conrado: 70.0 in, BMI: 42.76 Measured Time BP MAP HR RR O2Sat ETCO2 Temp Pain GCS RTS 02:30 05/05/2025 119/72 80 70 02:26 05/05/2025 124/76 84 71 21:30 05/04/2025 109/63 74 89 21:16 05/04/2025 106/64 80 92 21:01 05/04/2025 119/71 78 94 20:12 05/04/2025 142/79 100 102 20 94% 100.8 F 10 1 of 1 ED PHYSICIAN CLINICAL REPORT Observed: 0 05/05/2025 1:22 AM Status: F Source: [facility] Narrative - SHON WARREN, : 1970, , Physician Clinical Narrative [address] [address] [id number] 05/04/2025 20:11:00 Patient: KASI WARREN Sex: Male : 1970 Age: 54y Disposition: Admit to [facility] Disposition Decision Time: 01:21 05/05/2025 Measurements Wt: 135.2 kg, Ht/Conrado: 70.0 in, BMI: 42.76 Initial Vital Sign Measured Time BP MAP HR RR O2Sat ETCO2 Temp Pain GCS RTS 20:12 05/04/2025 142/79 100 102 20 94% 100.8 F 10 Time Seen: 21:01 05/04/2025. Arrived- By private vehicle. Historian- patient. HISTORY OF PRESENT ILLNESS Chief Complaint: HEADACHE. PAST HISTORY CVA - Cerebrovascular Accident DVT - Deep Venous Thrombosis Gout Hypercholesterolemia Hypertension: [Active] Migraine with aura: [Active] Neuropathy: [Active] Narrative - KASI WARREN, : 1970, , Surgeries: Hemorrhoidectomy Previous Abdominal Surgery Right Patella Medications: allopurinol 100 mg tablet: 100 mg once a day . ascorbic acid (vitamin C) 500 mg tablet: 500 mg once a day . aspirin 81 mg capsule: 81 mg once a day . atorvastatin 40 mg tablet: 40 mg once a day . carvedilol 25 mg tablet: 12.5 mg twice a day . Eliquis 5 mg tablet: 5 mg twice a day . gabapentin 300 mg capsule: 300 mg three times a day . lisinopril 20 mg tablet: 20 mg once a day . memantine 10 mg tablet: 10 mg twice a day . OLANZapine 5 mg tablet: 5 mg once a day at bedtime. omeprazole 40 mg capsule,delayed release: 40 mg once a day . tamsulosin 0.4 mg capsule: 0.4 mg once a day . Allergies: no known drug allergies ADDITIONAL NOTES The nursing notes have been reviewed. PHYSICAL EXAM Vital Signs: Have been reviewed. Appearance: (GENERAL APPEARANCE: NAD, activity normal for age, well developed/ well nourished, no cyanosis, pallor, or diaphoresis. EYES: lids/conjunctiva normal. PERR bilaterally EARS/NOSE/THROAT: Mucous membranes moist, nares normal, lips/teeth normal uvula midline without oral pharyngeal erythema, exudate or swelling TMs normal bilaterally. No lymphangitis/lymphedema. 2 of 10 Narrative - KASI WARREN, : 1970, , HEAD/NECK: normocephalic atraumatic, no facial trauma, neck is supple. RESPIRATORY: respiratory effort normal, speaks in full sentences, no tripod position, no accessory muscle use. Lungs clear to auscultation without rhonchi, wheezes, rales CARDIAC: Regular rate and rhythm, no edema. ABDOMINAL: Soft, ND/NT. No evidence of fluid wave. No pulsatile masses on exam, rebound tenderness, Evans sign or pain over Mcburney's point. MUSCLES/EXTREMITIES: No abnormal range of motion, no swelling. SKIN: Warm, pink and dry. No rashes, dermatoses, petechiae or lesions. NEUROLOGICAL: Speech is clear and appropriate. Normal level of consciousness. Gait and coordination are normal. 5/5 strength in all extremities. Sensation intact in all extremities. NIH 0. Diminished sensation over the right side compared to the left residual from prior stroke per patient. Negative meningeal signs PSYCH: Normal mood and affect. Judgement/competence is appropriate). LABS, X-RAYS, AND EKG 12-LEAD EKG: EKG time: 21:45 05/04/2025. EKG notes normal sinus rhythm with a rate of 93 NJ interval of 158 QRS duration of 86 QTC of [address]-elevation throughout all these. There is a P-wave for every QRS complex. Interpretation time: 21:45 05/04/2025. Laboratory Tests: CBC + DIFF Final DIMITRI: 05/04/2025 21:10:00 EDT MsgRcvd: 05/04/2025 21:27 EDT Lab Test Result Reference Status Received 05/04/2025 21:27 CBC + DIFF Final EDT CBC-COMPLETE BLOOD COUNT 3 of 10 Narrative - KASI WARREN, : 1970, , 13.5 x 10/UL 05/04/2025 21:27 WBC 4.5 - 10.8 Final Above high normal EDT 05/04/2025 21:27 RBC 4.56 x 10/UL 4.50 - 6.00 Final EDT 05/04/2025 21:27 HEMOGLOBIN 13.3 g/dl 13.0 - 17.5 Final EDT H AND H REPEATED 39.1 % 05/04/2025 21:27 HEMATOCRIT 40.0 - 52.0 Final Below low normal EDT 05/04/2025 21:27 MCV 86 fl 81 - 98 Final EDT 05/04/2025 21:27 MCH 29 pg 27 - 33 Final EDT 05/04/2025 21:27 MCHC 34 X10 3 32 - 36 Final EDT 05/04/2025 21:27 RDW/CV 14.9 % 12.0 - 15.6 Final EDT 05/04/2025 21:27 PLATELET 173 x10/UL 150 - 450 Final EDT 05/04/2025 21:27 MPV 7.3 fl 6.4 - 10.5 Final EDT AUTOMATED DIFFERENTIAL 80.4 % 05/04/2025 21:27 NEUT % 46.0 - 76.0 Final Above high normal EDT 10.5 % 05/04/2025 21:27 LYMPH % 20.0 - 45.0 Final Below low normal EDT 05/04/2025 21:27 MONOS % 6.3 % 0.0 - 10.0 Final EDT 4 of 10 Narrative - KASI WARRNE, : 1970, , 05/04/2025 21:27 EO % 2.6 % 0.0 - 7.0 Final EDT 05/04/2025 21:27 BASO % 0.2 % 0.0 - 2.0 Final EDT 05/04/2025 21:27 Lymph # 1.41 x10/UL 0.80 - 2.80 Final EDT 10.85 x10/UL 05/04/2025 21:27 Neut # 1.50 - 7.10 Final Above high normal EDT 05/04/2025 21:27 [place] # 0.85 x10/UL 0.20 - 1.00 Final EDT 05/04/2025 21:27 EO # 0.35 x10/UL 0.00 - 0.50 Final EDT 05/04/2025 21:27 Baso # 0.02 x10/UL 0.00 - 0.10 Final EDT 05/04/2025 21:27 MANUAL DIFF N/A New Order EDT 05/04/2025 21:27 MORPHOLOGY N/A New Order EDT CMP with eGFR Final DIMITRI: 05/04/2025 21:10:00 EDT MsgRcvd: 05/04/2025 21:43 EDT Lab Test Result Reference Status Received 05/04/2025 21:43 CMP with eGFR Final EDT COMPREHENSIVE METABOLIC PANEL 05/04/2025 21:43 SODIUM 138 mmol/l 136 - 145 Final EDT 5 of 10 Freda - KASI WARREN, : 1970, , 05/04/2025 21:43 POTASSIUM 4.1 mmol/L 3.5 - 5.1 Final EDT 05/04/2025 21:43 CHLORIDE 102 mmol/L 98 - 107 Final EDT 05/04/2025 21:43 CO2 27.3 mmol/L 21.0 - 32.0 Final EDT 122 mg/dl 05/04/2025 21:43 GLUCOSE 74 - 106 Final Above high normal EDT 21 mg/dl 05/04/2025 21:43 BUN 7 - 18 Final Above high normal EDT 1.41 mg/dl 05/04/2025 21:43 CREATININE 0.70 - 1.30 Final Above high normal EDT 05/04/2025 21:43 AST/SGOT 19 U/L 15 - 37 Final EDT 149 U/L 05/04/2025 21:43 ALK PHOS 46 - 116 Final Above high normal EDT 8.4 mg/dl 05/04/2025 21:43 CALCIUM 8.5 - 10.1 Final Below low normal EDT 05/04/2025 21:43 TOTAL PROTEIN 6.4 g/dl 6.4 - 8.2 Final EDT 3.2 g/dL 05/04/2025 21:43 ALBUMIN 3.4 - 5.0 Final Below low normal EDT 05/04/2025 21:43 GLOBULIN 3.2 G/DL 1.5 - 3.8 Final EDT 05/04/2025 21:43 A/G RATIO 1.0 0.9 - 1.6 Final EDT 05/04/2025 21:43 TOTAL BILI 0.6 mg/dl 0.2 - 1.0 Final EDT 6 10 Freda - KASI WARREN, : 1970, , 05/04/2025 21:43 B/C RATIO 15 ratio 0 - 30 Final EDT 05/04/2025 21:43 ALT/SGPT 25 U/L 16 - 63 Final EDT 05/04/2025 21:43 ANION GAP 13 mmol/L 10 - 20 Final EDT 05/04/2025 21:43 AGE 54 years Final EDT 53 ML/MINUTE 05/04/2025 21:43 eGFR 60 - 999 Final Below low normal EDT 05/04/2025 21:43 eGFR(AA) >60 ML/MINUTE 60 - 999 Final EDT ACCORDING TO THE NATIONAL KIDNEY DISEASE EDUCATION PROGRAM(NKDE), A NORMAL eGFR IS A VALUE GREATER THAN OR EQUAL TO 60 ML/MIN/1.73 SQ METERS. CHRONIC KIDNEY DISEASE: <60mL/MIN/1.73 SQ METERS KIDNEY FAILURE: <15mL/MIN/1.73 SQ METERS THIS TEST SHOULD ONLY BE USED FOR PATIENTS 18 YEARS OF AGE AND OLDER. LACTATE Final DIMITRI: 05/04/2025 21:10:00 EDT MsgRcvd: 05/04/2025 21:48 EDT Lab Test Result Reference Status Received 05/04/2025 21:48 LACTATE 1.0 mmol/L 0.4 - 2.0 Final EDT URINALYSIS Final DIMITRI: 05/04/2025 22:25:00 EDT MsgRcvd: 05/04/2025 22:29 EDT Lab Test Result Reference Status Received 05/04/2025 22:29 URINALYSIS Final EDT 7 of 10 KASI Pedroza, : 1970, , URINALYSIS 05/04/2025 22:29 Specimen Type R New Order EDT 05/04/2025 22:29 Color yellow NORMAL: YELLOW Final EDT 05/04/2025 22:29 Clarity clear NORMAL: CLEAR Final EDT 05/04/2025 22:29 ph 6 NORMAL: 5.0-8.0 Final EDT NORMAL: 05/04/2025 22:29 Protein NEG Final NEGATIVE EDT 05/04/2025 22:29 Glucose NORM NORMAL: NORMAL Final EDT NORMAL: 05/04/2025 22:29 Ketone NEG Final NEGATIVE EDT NORMAL: 05/04/2025 22:29 Bilirubin NEG Final NEGATIVE EDT NORMAL: 05/04/2025 22:29 Blood NEG Final NEGATIVE EDT 1 05/04/2025 22:29 Urobilinog NORMAL: NORMAL Final Abnormal EDT NORMAL: 05/04/2025 22:29 Sp [place] 1.015 Final 1.010-1.030 EDT NORMAL: 05/04/2025 22:29 Nitrite NEG Final NEGATIVE EDT NORMAL: 05/04/2025 22:29 Leukocytes NEG Final NEGATIVE EDT 8 of 10 KASI Pedroza, : 1970, , 05/04/2025 22:29 Microscopic NOT INDICATED Final EDT PROGRESS AND PROCEDURES MEDICAL DECISION MAKING: (54-year-old male with a history of stroke and chronic headaches presents to the Emergency Department with a headache and dizziness that started around 6 PM today. The patient reports that he typically receives a "cocktail" for his headaches when he visits the ED. He mentions using a cane to walk due to the dizziness. The patient states that the headache began after he finished doing chores, including putting dogs in the kennel and packing cars for a trip planned for tomorrow. He denies nausea, vomiting, abdominal pain, chest pain, or shortness of breath. The patient reports that he has been drinking his "gallon of water" but hasn't eaten since yesterday due to lack of appetite. He is currently taking blood thinners (eliquis) due to a "big stroke" he had last year in December. The patient also mentions an open sore on his leg, specifically behind the small wound" on his foot. Assessment Plan Medical Decision Making Patient is an adult male with a history of stroke and chronic headaches, presenting with acute onset headache and dizziness starting around 6 PM today. Patient reports being on blood thinners Eliquis, due to a stroke last year, which increases the risk of intracranial hemorrhage. Neurological exam reveals diminished sensation on the right side compared to the left, which the patient reports as a fluctuating symptom from a prior stroke in December. Given the acute onset of symptoms, history of stroke, and use of blood thinners, a CT of the head and neck was ordered to rule out intracranial hemorrhage or new ischemic event. Differential diagnosis includes migraine exacerbation, given the history of chronic headaches, but the acute onset and associated dizziness warrant further investigation. The patient's report of not eating since yesterday and drinking a gallon of water daily raises concern for potential electrolyte imbalances, which could contribute to symptoms. Decision to obtain urine sample, blood cultures, and lactic acid to evaluate for potential infection or metabolic derangements. EKG and chest x-ray ordered to rule out cardiac or pulmonary causes of dizziness. Plan for IV antibiotics suggests concern for possible infection, potentially related to the reported open wound on the patient's foot. Headache of Narrative - BRIANA KASI, : 1970, , Plan: - Order CT head/CTA head and neck to evaluate for acute intracranial pathology - EKG, CBC, CMP - Obtain urine sample, urine culture/UA - Order blood cultures and lactic acid - Perform EKG and chest x-ray - Administer IV Zosyn and Vancomycin, compazine, and benadryl Patient was noted to have a temperature of a 100.8 and a slightly elevated heart rate at 102 however this may be secondary to patient diminished p.o. intake per his report for the last day and a half. Nevertheless he will be provided a L of IV normal saline in addition to vancomycin and Zosyn. He was also provided 975 of Tylenol for his fever. Source for sepsis is currently being investigated. White blood cell count was elevated at 13.5. Creatinine is mildly elevated at 1.41. Lactic acid was within normal limits. Chest x-ray was concerning for bibasilar atelectasis versus developing pneumonia. on re-evaluation patient reports that his headache has resolved. CT brain noted no acute intracranial hemorrhage mass effect or midline shift. No abnormal ventricular volume. No skull fractures. Mastoid air cells are clear. The visualized paranasal sinuses are clear. CTA brain noted no CTA evidence of thrombus arterial occlusion or significant focal arterial stenosis of the major vessels of the anterior posterior circulations. No aneurysm. CTA neck noted no evidence of arterial occlusion dissection or aneurysm. Pain extracranial carotid arteries without significant focal arterial stenosis. Thoracic great vessel origins appear patent. Patent bilateral vertebral arteries. Hospitalist was paged for admission due to concern for sepsis secondary to pulmonary source. Patient was admitted in stable condition. Patient was admitted to Dr. Greenwood's service.). Disposition: Disposition Decision Time: 01:21 05/05/2025. Patient admitted to [facility]. Admitted in stable condition. CLINICAL IMPRESSION (Pneumonia, sepsis). (Electronically signed by Matt Braxton D.O. 05/05/25 01:22:04 EDT) Generated by [facility] 10 of 10 ED MED ADMINISTRATION DETAIL Observed: 0 05/05/2025 1:22 AM Status: F Source: [facility] Biological Lab Technician - SHON WARREN, : 1970, , Medication Administration Record [address] [place] [address] [id number] 05/04/2025 Patient: KASI WARREN Sex: Male : 1970 Age: 54y MEASUREMENTS: Wt: 135.2 kg, Ht/Conrado: 70.0 in, BMI: 42.76 ALLERGIES: No known drug allergies Medication Ordered Medication Administration Date/Time IV NS 0.9 % 1000 21:27 05/04 IV NS 0.9 % 1000 mL started in bag#1 1000 mL at Started mL at 999 mL/hr 999 mL/hr via Site# 1. Allergies verified and confirmed 5 rights. Via 21:27 05/04/2025 (NOW x1) dial-a-flow. IV patency established. IV site checked: no pain, Maurice Anabella, R.N. redness, or swelling. IV flushed thoroughly pre-medication Stopped administration. Information reviewed with patient including reason 23:05/04/2025 for taking this medication. Verbalizes understanding. - 21:28 Maurice Maurice Anabella, R.N. Anabella, R.N. Scanned 23:05/04 Medication Discontinued: bag #1 completed. Total amount infused: 1000 mL. IV patency established. IV site checked: no pain, redness, or swelling. IV flushed thoroughly post-medication administration. - 23:06 Maurice Kenneyp, R.N. 1 of 3 Biological Lab Technician - KASI WARREN, : 1970, , Medication Ordered Medication Administration Date/Time Piperacillin-Tazoba 21:05/04 Piperacillin-Tazobac (Zosyn) IVPB 3.375gm/50ml NS Started c (Zosyn) IVPB 3.375 g started at 100 mL/hr diluted in sodium chloride IVPB 0.9 % 21:29 05/04/2025 3.375gm/50ml NS Minibag+ 50 mL via Site# 1. Allergies verified and confirmed 5 Maurice Anabella, R.N. 3.375 g diluted in rights. Via dial-a-flow. IV patency established. IV site checked: no Stopped sodium chloride pain, redness, or swelling. IV flushed thoroughly pre-medication 22:00 05/04/2025 IVPB 0.9 % administration. Information reviewed with patient including reason Maurice Anabella, R.N. Minibag+ 50 mL at for taking this medication. Verbalizes understanding. - 21:30 Maurice Scanned 100 mL/hr (NOW x1) Anabella, R.N. 22:05/04 Medication Discontinued: IV completed. Total amount infused: 50 mL. IV patency established. IV site checked: no pain, redness, or swelling. IV flushed thoroughly post-medication administration. - 22:15 Maurice Anabella, R.N. Vancomycin 1 22:12 05/04 Vancomycin 1 gm/NS 200ml IVPB Premix 1 g started Started gm/NS 200ml IVPB at 200 mL/hr via Site# 1. Allergies verified and confirmed 5 rights. 22:12 05/04/2025 Premix 1 g at 200 Via IV pump. IV patency established. IV site checked: no pain, Niya SaundersN. mL/hr (NOW x1) redness, or swelling. IV flushed thoroughly pre-medication Stopped administration. Information reviewed with patient including reason 23:15 05/04/2025 for taking this medication. Verbalizes understanding. - 22:14 Adrianna Baldwin R.N. Scanned 23:05/04 Medication Discontinued: IV completed. Total amount infused: 200 mL. IV patency established. IV site checked: no pain, redness, or swelling. IV flushed thoroughly post-medication administration. - 03:31 Maurice Kyle R.N. Acetaminophen 21:34 05/04 Acetaminophen (Tylenol) PO 975 mg given. Allergies Given (Tylenol) PO 975 verified and confirmed 5 rights. Information reviewed with patient 21:34 05/04/2025 mg (NOW x1) including reason for taking this medication. Verbalizes Maurice Kyle R.N. understanding. - 21:35 Maurice Kyle R.N. Scanned 2 of 3 Biological Lab Technician - KEYONNAREBECCAKASI, : 1970, , Medication Ordered Medication Administration Date/Time Prochlorperazine 21:05/04 Prochlorperazine (Compazine) IVP 10 mg given via Given (Compazine) IVP 10 Site# 1. Allergies verified and confirmed 5 rights. IV patency 21:05/04/2025 mg (NOW x1) established. IV site checked: no pain, redness, or swelling. IV José Saunders.aSmuel flushed thoroughly pre-medication administration. Information Scanned reviewed with patient including reason for taking this medication. Verbalizes understanding. - 21:33 Maurice Kyle R.N. DiphenhydrAMINE 21:05/04 DiphenhydrAMINE (Benadryl) IVP 50 mg given via Given (Benadryl) IVP 50 Site# 1. Allergies verified and confirmed 5 rights. IV patency 21:31 05/04/2025 mg (NOW x1) established. IV site checked: no pain, redness, or swelling. IV Maurice Kyle R.N. flushed thoroughly pre-medication administration. Information Scanned reviewed with patient including reason for taking this medication. Verbalizes understanding. - 21:31 Maurice Kyle R.N. 3 of 3 ED VISIT SUMMARY Observed: 05/05/2025 1:22 AM Status: F Source: [facility] Visit Overview - KASI AWRREN, : 1970, , Visit Overview [address] [address] [id number] 05/04/2025 Patient: KASI WARREN Sex: Male : 1970 Age: 54y 05/05/2025 03:31 AM EDT ED Arrival:20:11 05/04/2025 EDT Status: Recent Travel:no Language:eng Adv Directive: Isolation Status: Ethnicity:N Fall Risk:risk Infectious Disease Exposure:no Measurements:5'10" / 177.8 Self-Harm Status:risk Sepsis Screen:positive cm 298.0 lb / 135.2 kg Chief Complaint:CHILLS, FATIGUE, FEVER, SINUS CONGESTION, and (Quijano) ALLERGIES No Known Drug Allergies HOME MEDICATIONS allopurinol 100 mg tablet: 100 mg once a day . ascorbic acid (vitamin C) 500 mg tablet: 500 mg once a day . aspirin 81 mg capsule: 81 mg once a day . atorvastatin 40 mg tablet: 40 mg once a day . carvedilol 25 mg tablet: 12.5 mg twice a day . Eliquis 5 mg tablet: 5 mg twice a day . 1 of 4 Visit Overview - KASI WARREN, : 1970, , gabapentin 300 mg capsule: 300 mg three times a day . lisinopril 20 mg tablet: 20 mg once a day . memantine 10 mg tablet: 10 mg twice a day . OLANZapine 5 mg tablet: 5 mg once a day at bedtime. omeprazole 40 mg capsule,delayed release: 40 mg once a day . tamsulosin 0.4 mg capsule: 0.4 mg once a day . PAST MEDICAL HISTORY / PROBLEMS CVA - Cerebrovascular Accident DVT - Deep Venous Thrombosis Gout Hypercholesterolemia Hypertension: Active Migraine with aura: Active Neuropathy: Active PAST SURGICAL HISTORY Hemorrhoidectomy Previous Abdominal Surgery Right Patella SOCIAL HISTORY Smoking status: No Alcohol use: No Drug use: No ED COURSE MEDICATIONS GIVEN IN EMERGENCY DEPARTMENT 21:27 05/04/25 IV NS 0.9 % 1000 mL 999 mL/hr Piperacillin-Tazobac (Zosyn) IVPB 3.375gm/50ml NS 3.375 g diluted in sodium 21:29 05/04/25 chloride IVPB 0.9 % Minibag+ 50 mL 100 mL/hr 21:31 05/04/25 DiphenhydrAMINE (Benadryl) IVP 50 mg 21:32 05/04/25 Prochlorperazine (Compazine) IVP 10 mg 21:34 05/04/25 Acetaminophen (Tylenol) PO 975 mg 2 of 4 Visit Overview - KASI WARREN, : 1970, , 22:12 05/04/25 Vancomycin 1 gm/NS 200ml IVPB Premix 1 g 200 mL/hr IV SITE INFORMATION 21:03 05/04/25 Site #1 right AC, 18g. Saline lock. INTAKE OUTPUT REASSESMENT (most recent) 21:39 05/04/25. Ambulatory to room. ( fever, migraine type headache, shakey.). GENERAL / NEURO / PSYCH: Alert. Oriented X 4. Appears in no acute distress. HEENT: Pupils equal, round and reactive to light. RESPIRATORY: Respirations not labored. VITAL SIGNS First Vitals Last Vitals Temp 20:12 05/04/25 100.8 F Temp 02:30 05/05/25 BP 20:12 05/04/25 142/79 BP 02:05/05/25 119/72 HR 20:12 05/04/25 102 HR 02:30 05/05/25 70 RR 20:05/04/25 20 RR 02:30 05/05/25 O2 Sat 20:12 05/04/25 94% O2 Sat 02:30 05/05/25 Pain 20:12 05/04/25 10 Pain 02:30 05/05/25 ETCO2 20:12 05/04/25 ETCO2 02:30 05/05/25 GCS 20:12 05/04/25 GCS 02:30 05/05/25 RTS 20:12 05/04/25 RTS 02:30 05/05/25 PROCEDURES NURSING INTERVENTIONS LABS / STUDIES LABS / STUDIES ORDERED Blood Culture [Kermit] # 1 Blood Culture [Kermit] # 2 CBC w Diff Chest 1V CMP CT Brain wo Cont 3 of 4 Visit Overview - KASI WARREN, : 1970, , CTA Carotids w IVC Recons CTA Head Marvin of [place] w Recons EKG - ED Lactate, Serum Urinalysis Urine Culture [CCL] CLINICAL IMPRESSION [address] ANGIOGRAPHY NECK Observed: 05/04/2025 11:14 PM Status: F Source: [place] [id number] Patient: KASI WARREN Phone#: : 1970 Age: 54 Gender: M Pt. Type: ER Account: [id number] Location: [facility] Ordering: DR. MATT BRAXTON Exam Date: 05/04/2025/22:33 Family Phys: Charge Code: [id number] Physician: Shannon Order #: [id number] Dose#: 7.3 PROCEDURE: CT ANGIOGRAPHY CAROTIDS WITH CONTRAST COMPARISON: [facility], CT, ANGIOGRAPHY CAROTIDS, 02/02/2024, 9:52. INDICATIONS: Headache. TECHNIQUE: After obtaining the patient's consent, CT images of the neck were obtained with non- ionic intravenous contrast material. MPR/MIPS and 3D images were created to optimize visualization of vascular anatomy. All CT scans at this facility use dose modulation, iterative reconstruction, and/or weight based dosing when appropriate to reduce radiation dose to as low as reasonably achievable. IV CONTRAST: Omnipaque 350,80ml TOTAL DOSE: 7.3 CTDIvol(mGy) FINDINGS: LEFT INTERNAL CAROTID: No hemodynamically significant stenosis or dissection. EXTERNAL CAROTID: No hemodynamically significant stenosis or dissection. COMMON CAROTID: No hemodynamically significant stenosis or dissection. VERTEBRAL: No hemodynamically significant stenosis or dissection. RIGHT INTERNAL CAROTID: No hemodynamically significant stenosis or dissection. EXTERNAL CAROTID: No hemodynamically significant stenosis or dissection. COMMON CAROTID: No hemodynamically significant stenosis or dissection. VERTEBRAL: No hemodynamically significant stenosis or dissection. OTHER: The visualized soft tissues of the neck are also unremarkable. CONCLUSION: 1. There is no evidence of significant stenosis or aneurysmal dilatation. Dictated by: Geena Hughes MD on 05/06/2025 at 9:46 Continued Report - Page 2 of 2 Patient: KASI WARREN Phone#: : 1970 Age: 54 Gender: M Pt. Type: ER Account: [id number] Location: 052 Ordering: DR. MATT BRAXTON Exam Date: 05/04/2025/22:33 Family Phys: Charge Code: [id number] Physician: Shannon Order #: [id number] Dose#: 7.3 Approved by: Geena Hughes MD on 05/06/2025 at 9:51 CT ANGIOGRAPHY HEAD W/CONTRAST Observed: 05/04/2025 11:14 PM Status: F Source: [place] [id number] Patient: KASI WARREN Phone#: : 1970 Age: 54 Gender: M Pt. Type: ER Account: [id number] Location: 052 Ordering: DR. MATT BRAXTON Exam Date: 05/04/2025/22:33 Family Phys: Charge Code: [id number] Physician: Shannon Order #: [id number] Dose#: [id number] PROCEDURE: CT ANGIOGRAPHY HEAD WITH CONTRAST COMPARISON: [facility], CT, ANGIOGRAPHY HEAD, 02/02/2024, 9:52. INDICATIONS: Headache. TECHNIQUE: After obtaining the patient's consent, CT images of the head were obtained with non- ionic contrast, and MPR and 3D imaging were created and interpreted to optimize visualization of vascular anatomy. All CT scans at this facility use dose modulation, iterative reconstruction, and/or weight based dosing when appropriate to reduce radiation dose to as low as reasonably achievable. IV CONTRAST: Omnipaque 350,80ml TOTAL DOSE: 7.3 CTDIvol(mGy) FINDINGS: VASCULATURE: Normal. No significant stenosis. No visible aneurysm or vascular malformation. VENTRICLES: Normal for age. No enlargement or displacement. CEREBRUM: Normal for age. No excessive atrophy, mass, or hemorrhage, or abnormal enhancement. CEREBELLUM: Normal for age. No excessive atrophy, mass, or hemorrhage, or abnormal enhancement. BRAINSTEM: Normal for age. No excessive atrophy, mass, or hemorrhage, or abnormal enhancement. BASAL CISTERNS: Normal. No subarachnoid hemorrhage or effacement. SKULL: Negative. CONCLUSION: 1. There is no significant stenosis or aneurysmal dilatation. Dictated by: Geena Hughes MD on 05/06/2025 at 9:51 Approved by: Geena Hughes MD on 05/06/2025 at 9:54 CT BRAIN W/O CONTRAST Observed: 05/04/20 11:03 PM Status: F Source: [place] [id number] Patient: KASI WARREN Phone#: : 1970 Age: 54 Gender: M Pt. Type: ER Account: [id number] Location: 2 Ordering: DR. MATT BRAXTON Exam Date: 05/04/2025/22:33 Family Phys: Charge Code: [id number] Physician: Shannon Order #: [id number] Dose#: [id number] PROCEDURE: CT BRAIN WITHOUT CONTRAST COMPARISON: [facility], CT, BRAIN W/O CON, 09/17/2024, 12:51. INDICATIONS: Headache. TECHNIQUE: CT images were obtained without contrast material. All CT scans at this facility use dose modulation, iterative reconstruction, and/or weight based dosing when appropriate to reduce radiation dose to as low as reasonably achievable. IV CONTRAST: No IV contrast used,ml TOTAL DOSE: 57.5 CTDIvol(mGy) FINDINGS: CEREBRUM: No edema, hemorrhage, mass, acute infarction, or inappropriate atrophy. CEREBELLUM: No edema, hemorrhage, mass, acute infarction, or inappropriate atrophy. BRAINSTEM: No edema, hemorrhage, mass, acute infarction, or inappropriate atrophy. CSF SPACES: Ventricles, cisterns, and sulci are appropriate for age. No hydrocephalus, subarachnoid hemorrhage, or mass. SKULL: No mass or other significant visible lesion. SINUSES: Limited views demonstrate no significant mucosal thickening or fluid. ORBITS: Limited views are unremarkable. OTHER: Negative. CONCLUSION: 1. There is no evidence of acute intracranial abnormality. Dictated by: Geena Hughes MD on 05/05/2025 at 23:28 Approved by: Geena Hughes MD on 05/05/2025 at 23:31 CHEST 1 VIEW Observed: 05/04/2025 11:01 PM Status: F Source: [place] [id number] Patient: KASI WARREN Phone#: : 1970 Age: 54 Gender: M Pt. Type: ER Account: [id number] Location: [facility] Ordering: DR. MATT BRAXTON Exam Date: 05/04/2025/22:56 Family Phys: Charge Code: [id number] Physician: Shannon Order #: [id number] Dose#: PROCEDURE: X-RAY CHEST 1 VIEW COMPARISON: [facility], CHEST 2 VIEWS, 05/28/2022, 16:13. INDICATIONS: Pneumonia. FINDINGS: LUNGS: Left basilar linear atelectasis. VASCULATURE: Normal. Unremarkable pulmonary vasculature. CARDIAC: Normal. No cardiac silhouette abnormality or cardiomegaly. MEDIASTINUM: Normal. No visible mass or adenopathy. PLEURA: Small left pleural effusion cannot be excluded. BONES: Normal. No fracture or visible bony lesion. OTHER: Negative. CONCLUSION: 1. Left basilar linear atelectasis. Dictated by: Geena Hughes MD on 05/06/2025 at 2:29 Approved by: Geena Hughes MD on 05/06/2025 at 2:31 URINALYSIS Collected: 10:25 PM Status: F Source: [facility] TYPE CODE TESTS RESULT OUT OF RANGE REFERENCE UNITS LAB URINALYSIS(CHANTE NC) URINALYSIS Result Comment: URINALYSIS LAB Specimen Type(LOINC) Specimen Type R LAB Color(LOINC) Color yellow NORMAL: YELLOW LAB Clarity(LOINC) Clarity clear QUEENIE L: CLEAR LAB ph(LOINC) ph 6 NORMAL: 5.0-8.0 LAB Protein(LOINC) Protein NEG QUEENIE L: NEGATIVE LAB Glucose(LOINC) Glucose NORM QUEENIE L: NORMAL LAB Ketone(LOINC) Ketone NEG NORMAL : NEGATIVE LAB Bilirubin(LOIN C) Bilirubin NEG NORMAL: NEGATIVE LAB Blood(LOINC) Blood NEG NORMAL: NEGATIVE LAB Urobilinog(CHANTE NC) Urobilinog 1 Abnormal NORMAL: NORMAL LAB Sp [place](LOINC) Sp [place] 1.015 NORMAL: 1.010-1.030 LAB Nitrite(LOINC) Nitrite NEG QUEENIE L: NEGATIVE LAB Leukocytes(CHANTE NC) Leukocytes NEG NORMAL: NEGATIVE LAB Microscopic(LO INC) Microscopic NOT INDICATED Performed By: #### [id number] ## ## [place] [id number] URINE CULTURE [CCL] Observed: 05/04/2025 10:25 PM Status: F Source: [facility] URCUL See Results Below See Below CULTURE, URINE No growth (<1,000 CFU/ml) SOURCE: Urine (Nonspecific) [place] [id number] Primo Charles III, M.D. [id number] SEND TO IC NO Performed By: #### [id number] ## ## [place] [id number] CBL Observed: 05/04/2025 9:25 PM Status: F Source: [facility] . MICRO - Microbiology PROCEDURE: Blood Culture (bacterial) [*1] SOURCE: Blood BODY SITE: Arm R COLLECTED DATE/TIME: 05/04/2025 21:25 EDT RECEIVED DATE/TIME: 05/05/2025 15:17 EDT START DATE/TIME: 05/05/2025 15:19 EDT FREE TEXT SOURCE: FA FINAL REPORTS Final Report [] Verified Date/Time/Personnel: 05/10/2025 15:59 EDT Blood Culture: No Growth at 5 days. PRELIMINARY REPORTS Preliminary Report [] Verified Date/Time/Personnel: 05/05/2025 15:59 EDT Culture has been received in lab and is no growth to date. Routine cultures are held for 5 days. Performing Locations *1: This test was performed at: [facility], [address] [place] [address], [id number] , [place] CULTURE BLOOD [[place]] Observed: 2024 9:25 PM Status: F Source: [facility] CULTURE BLOOD [[place]] _BLO[facility] CULTURE_ [facility] REPOR[facility] AND ATTACHMENTS FOR SCANNED REPORT [email or web address] Performed By: #### [id number] ## ## [facility],[address] [place] [address] Observed: 05/04/2025 9:10 PM Status: F Source: [facility] . MICRO - Microbiology PROCEDURE: Blood Culture (bacterial) [*1] SOURCE: Blood BODY SITE: Anticubital, Right COLLECTED DATE/TIME: 05/04/2025 21:10 EDT RECEIVED DATE/TIME: 05/05/2025 15:15 EDT START DATE/TIME: 05/05/2025 15:19 EDT FREE TEXT SOURCE: FINAL REPORTS Final Report [] Verified Date/Time/Personnel: 05/10/2025 15:59 EDT Blood Culture: No Growth at 5 days. PRELIMINARY REPORTS Preliminary Report [] Verified Date/Time/Personnel: 05/05/2025 15:59 EDT Culture has been received in lab and is no growth to date. Routine cultures are held for 5 days. Performing Locations *1: This test was performed at: [facility], [address] [place] [address], [id number]- , [place] CBC + DIFF Collected: 9:10 PM Status: F Source: [facility] TYPE CODE TESTS RESULT OUT OF RANGE REFERENCE UNITS LAB CBC + DIFF(LOINC) CBC + DIFF Result Comment: CBC-COMPLETE BLOOD COUNT LAB WBC(LOINC) WBC 13.5 High 4.5 - 10.8 x 10EE3/UL LAB RBC(LOINC) RBC 4.56 4.50 - 6.00 x 10EE6/UL LAB HEMOGLOBIN(CHANTE NC) HEMOGLOBIN 13.3 13.0 - 17.5 g/dl Result Comment: H AND H REPE ATED LAB HEMATOCRIT(CHANTE NC) HEMATOCRIT 39.1 Low 40.0 - 52.0 % LAB MCV(LOINC) MCV 86 81 - 98 fl LAB MCH(LOINC) MCH 29 27 - 33 pg LAB MCHC(LOINC) MCHC 34 32 - 36 X10 3 LAB RDW/CV(LOINC) RDW/CV 14.9 12.0 - 15.6 % LAB PLATELET(LOINC ) PLATELET 173 150 - 450 x10EE3/UL LAB MPV(LOINC) MPV 7.3 6.4 - 10.5 fl Result Comment: AUTOMATED DI FFERENTIAL LAB NEUT %(LOINC) NEUT % 80.4 High 46.0 - 76.0 % LAB LYMPH %(LOINC) LYMPH % 10.5 Low 20.0 - 45.0 % LAB MONOS %(LOINC) MONOS % 6.3 0.0 - 10.0 % LAB EO %(LOINC) EO % 2.6 0.0 - 7.0 % LAB BASO %(LOINC) BASO % 0.2 0.0 - 2.0 % LAB Lymph #(LOINC) Lymph # 1.41 0.80 - 2.80 x10EE 3/UL LAB Neut #(LOINC) Neut # 10.85 High 1.50 - 7.10 x10EE3 /UL LAB [place] #(LOINC) [place] # 0.85 0.20 - 1.00 x10EE3 /UL LAB EO #(LOINC) EO # 0.35 0.00 - 0.50 x10EE3/U L LAB Baso #(LOINC) Baso # 0.02 0.00 - 0.10 x10EE3 /UL LAB MANUAL DIFF(LOINC) MANUAL DIFF N/A LAB MORPHOLOGY(CHANTE NC) MORPHOLOGY N/A Performed By: #### [id number] ## ## [place] [id number] CULTURE BLOOD [[place]] Observed: 2024 9:10 PM Status: F Source: [facility] CULTURE BLOOD [[place]] _BLOOD CULTURE_ [facility] REPORTS AND ATTACHMENTS FOR SCANNED REPORT [email or web address] Performed By: #### [id number] ## ## [place] [id number] LACTATE Collected: 9:10 PM Status: F Source: [facility] TYPE CODE TESTS RESULT OUT OF RANGE REFERENCE UNITS LAB LACTATE(INC) LACTATE 1.0 0.4 - 2.0 mmol/L Performed By: #### [id number] ## ## [place] [id number] CMP WITH EGFR Collected: 9:10 PM Status: F Source: [facility] TYPE CODE TESTS RESULT OUT OF RANGE REFERENCE UNITS LAB CMP with eGFR(LOINC) CMP with eGFR Result Comment: COMPREHENSIV E METABOLIC PANEL LAB SODIUM(LOINC) SODIUM 138 136 - 145 mmol/l LAB POTASSIUM(LOIN C) POTASSIUM 4.1 3.5 - 5.1 mmol/L LAB CHLORIDE(LOINC ) CHLORIDE 102 98 - 107 mmol/L LAB CO2(LOINC) CO2 27.3 21.0 - 32.0 mmol/L LAB GLUCOSE(LOINC) GLUCOSE 122 High 74 - 106 mg/dl LAB BUN(LOINC) BUN 21 High 7 - 18 mg/dl LAB CREATININE(CHANTE NC) CREATININE 1.41 High 0.70 - 1.30 mg/dl LAB AST/SGOT(LOINC ) AST/SGOT 19 15 - 37 U/L LAB ALK PHOS(LOINC) ALK PHOS 149 High 46 - 116 U/L LAB CALCIUM(LOINC) CALCIUM 8.4 Low 8.5 - 10.1 mg/dl LAB TOTAL PROTEIN(LOINC) TOTAL PROTEIN 6.4 6.4 - 8.2 g/dl LAB ALBUMIN(LOINC) ALBUMIN 3.2 Low 3.4 - 5.0 g/dL LAB GLOBULIN(LOINC ) GLOBULIN 3.2 1.5 - 3.8 G/DL LAB A/G RATIO(LOINC) A/G RATIO 1.0 0.9 - 1.6 LAB TOTAL BILI(LOINC) TOTAL BILI 0.6 0.2 - 1.0 mg/dl LAB B/C RATIO(LOINC) B/C RATIO 15 0 - 30 ratio LAB ALT/SGPT(LOINC ) ALT/SGPT 25 16 - 63 U/L LAB ANION GAP(LOINC) ANION GAP 13 10 - 20 mmol/L LAB AGE(LOINC) AGE 54 years LAB eGFR(LOINC) eGFR 53 Low 60 - 999 ML/MINUT E LAB eGFR(AA)(LOINC ) eGFR(AA) >60 60 - 999 ML/MINUT E Result Comment: ACCORDING TO THE NATIONAL KIDNEY DISEASE EDUCATION PROGRAM(NKDE), A NORMAL eGFR IS A VALUE GREATER THAN OR EQUAL TO 60 ML/MIN/1.73 SQ METERS. CHRONIC KIDNEY DISEASE: <60mL/MIN/1.73 SQ METERS KIDNEY FAILURE: <15mL/MIN/1.73 SQ METERS THIS TEST SHOULD ONLY BE USED FOR PATIENTS 18 YEARS OF AGE AND OLDER. Performed By: #### [id number] ## ## [facility],[address] [place] [address] HEPATOBILIARY SCAN Observed: 05/01/20 11:50 AM Status: F Source: [facility] EXAMINATION: NUCLEAR MEDICINE HEPATOBILIARY SCINTIGRAPHY (HIDA SCAN) WITH EJECTION FRACTION. TECHNIQUE: Approximately 4 millicuries Tc99m Mebrofenin (Choletec) was administered IV. Then, dynamic images of the abdomen were obtained in the anterior projection for 60 mins. A right lateral view was also obtained at 60 mins. Slow infusion of 2.7 mcg cholecystokinin was administered intravenously over 30-60 mins. Images were obtained in the ANGOLAN projection and regions of interest were drawn around the gallbladder and ejection fraction was calculated. COMPARISON: None. HISTORY: ORDERING SYSTEM PROVIDED HISTORY: RUQ ABDOMINAL PAIN FINDINGS: Following administration of radiotracer prompt uptake of radiotracer is seen in the liver with no persistence of cardiac blood pool activity. The biliary tree is visualized by 4 minutes. Gallbladder activity is demonstrated at 5 minutes. Bowel activity is demonstrated at 52 minutes. Following administration of CCK, no information is available as to whether the patient experienced adverse reaction to the CCK infusion.. The calculated gallbladder ejection fraction is 96% (normal range 35%- upper limit not clearly defined in the literature and can range from 65%-90%). Progressive radiotracer excretion is demonstrated from the liver to the small-bowel. Good aboral progression of radiotracer from the proximal to distal small bowel is seen. No enterogastric bile reflux is noted. IMPRESSION: No evidence of cholecystitis. Elevated gallbladder ejection fraction consistent with a hyperkinetic gallbladder. No enterogastric bile reflux. URINALYSIS Collected: 4:45 AM Status: F Source: [facility] TYPE CODE TESTS RESULT OUT OF RANGE REFERENCE UNITS LAB URINALYSIS(CHANTE NC) URINALYSIS Result Comment: URINALYSIS LAB Specimen Type(LOINC) Specimen Type R LAB Color(LOINC) Color yellow NORMAL: YELLOW LAB Clarity(LOINC) Clarity clear QUEENIE L: CLEAR LAB ph(LOINC) ph 7 NORMAL: 5.0-8.0 LAB Protein(LOINC) Protein 15 Abnormal QUEENIE L: NEGATIVE LAB Glucose(LOINC) Glucose NORM QUEENIE L: NORMAL LAB Ketone(LOINC) Ketone NEG NORMAL : NEGATIVE LAB Bilirubin(LOIN C) Bilirubin NEG NORMAL: NEGATIVE LAB Blood(LOINC) Blood NEG NORMAL: NEGATIVE LAB Urobilinog(CHANTE NC) Urobilinog 4 Abnormal NORMAL: NORMAL LAB Sp [place](LOINC) Sp [place] 1.010 NORMAL: 1.010-1.030 LAB Nitrite(LOINC) Nitrite NEG QUEENIE L: NEGATIVE LAB Leukocytes(CHANTE NC) Leukocytes NEG NORMAL: NEGATIVE LAB Microscopic(LO INC) Microscopic NOT INDICATED Performed By: #### [id number] ## ## [facility],[address] [place] [address] CT ABDOMEN/PELVIS W Observed: 03/27/2025 4:09 AM Status: F Source: [place] [id number] Patient: KASI WARREN Phone#: : [phone] Age: 54 Gender: M Pt. Type: ER Account: [id number] Location: 052 Ordering: CISCO URRUTIA Exam Date: 03/27/2025/3:48 Family Phys: Charge Code: 174994 Physician: Shannon Order #: [id number] Dose#: [id number] PROCEDURE: CT ABDOMEN/PELVIS WITH CONTRAST COMPARISON: [facility], CT, ABDOMEN/PELVIS W CON, 02/02/2024, 9:59. INDICATIONS: Abdominal pain. TECHNIQUE: After obtaining the patient's consent, CT images were created with non-ionic intravenous contrast material. All CT scans at this facility use dose modulation, iterative reconstruction, and/or weight based dosing when appropriate to reduce radiation dose to as low as reasonably achievable. IV CONTRAST: Omnipaque 350,80ml TOTAL DOSE: 48.4 CTDIvol(mGy) FINDINGS: LIVER: Normal. No enlargement, atrophy, abnormal density, or significant focal lesion. BILIARY: Gallbladder is present. Calcified stone in the gallbladder measuring 0.8 cm. PANCREAS: Normal. No lesion, fluid collection, ductal dilatation, or atrophy. SPLEEN: Normal. No enlargement or focal lesion. KIDNEYS: Kidneys enhance and excrete contrast symmetrically. There are nonobstructing right renal calculi, the largest measures 0.8 x 0.6 cm, series 2, image 28 and a smaller calcification measuring 0.3 x 0 3 cm. There is an exophytic left proteinaceous or hemorrhagic cyst measuring 1.8 x 2.2 cm, not significantly changed, previously measuring 1.8 x 2.5 cm ADRENALS: Normal. No mass or enlargement. AORTA/VASCULAR: No aortic aneurysm. Scattered atherosclerotic calcifications present. RETROPERITONEUM: Normal. No mass or adenopathy. BOWEL/MESENTERY: There is a duodenal diverticulum. No bowel obstruction or dilatation. Moderate to large stool burden. There is evidence of prior small bowel resection and anastomosis in the mid abdomen. There is fecalization of a capacious segment of small bowel at the site of anastomosis, series 8, image 17. The small bowel measures up to 6.5 cm in this location. The appendix is unremarkable in size containing air. Continued Report - Page 2 of 2 Patient: KASI WARREN Phone#: : 1970 Age: 54 Gender: M Pt. Type: ER Account: [id number] Location: 052 Ordering: CISCO URRUTIA Exam Date: 03/27/2025/3:48 Family Phys: Charge Code: [id number] Physician: Shannon Order #: [id number] Dose#: [id number] ABDOMINAL WALL: Bilateral fat containing inguinal hernias URINARY BLADDER: Normal. No visible focal wall thickening, lesion, or calculus. PELVIC NODES: Normal. No adenopathy. PELVIC ORGANS: Normal. No visible mass. Pelvic organs appropriate for patient age. BONES: Stable T12 inferior endplate wedge shaped compression fracture. LUNG BASES: Normal. No visible pulmonary or pleural disease. OTHER: Negative. CONCLUSION: 1. Fecalization of small bowel at the small bowel anastomosis in the mid abdomen. 2. Cholelithiasis 3. Constipation 4. Nonobstructing right renal calculi Dictated by: Linda Worthy MD on 03/27/2025 at 11:24 Approved by: Linda Worthy MD on 03/27/2025 at 11:36 C-REACTIVE PROTEIN Collected: 5 3:00 AM Status: F Source: [facility] TYPE CODE TESTS RESULT OUT OF RANGE REFERENCE UNITS LAB CRP(LOINC) CRP 2.02 High 0.00 - 0.90 mg/dl Performed By: #### [id number] ## ## [facility],[address] [place] [address] CMP WITH EGFR Collected: 5 3:00 AM Status: F Source: [facility] TYPE CODE TESTS RESULT OUT OF RANGE REFERENCE UNITS LAB CMP with eGFR(LOINC) CMP with eGFR Result Comment: COMPREHENSIV E METABOLIC PANEL LAB SODIUM(LOINC) SODIUM 146 High 136 - 145 mmol/l LAB POTASSIUM(LOIN C) POTASSIUM 3.9 3.5 - 5.1 mmol/L LAB CHLORIDE(LOINC ) CHLORIDE 107 98 - 107 mmol/L LAB CO2(LOINC) CO2 32.6 High 21.0 - 32.0 mmol/L LAB GLUCOSE(LOINC) GLUCOSE 123 High 74 - 106 mg/dl LAB BUN(LOINC) BUN 20 High 7 - 18 mg/dl LAB CREATININE(CHANTE NC) CREATININE 1.56 High 0.70 - 1.30 mg/dl LAB AST/SGOT(LOINC ) AST/SGOT 20 15 - 37 U/L LAB ALK PHOS(LOINC) ALK PHOS 155 High 46 - 116 U/L LAB CALCIUM(LOINC) CALCIUM 8.7 8.5 - 10.1 mg/dl LAB TOTAL PROTEIN(LOINC) TOTAL PROTEIN 6.8 6.4 - 8.2 g/dl LAB ALBUMIN(LOINC) ALBUMIN 3.5 3.4 - 5.0 g/dL LAB GLOBULIN(LOINC ) GLOBULIN 3.3 1.5 - 3.8 G/DL LAB A/G RATIO(LOINC) A/G RATIO 1.1 0.9 - 1.6 LAB TOTAL BILI(LOINC) TOTAL BILI 0.9 0.2 - 1.0 mg/dl LAB B/C RATIO(LOINC) B/C RATIO 13 0 - 30 ratio LAB ALT/SGPT(LOINC ) ALT/SGPT 26 16 - 63 U/L LAB ANION GAP(LOINC) ANION GAP 10 10 - 20 mmol/L LAB AGE(LOINC) AGE 54 years LAB eGFR(LOINC) eGFR 47 Low 60 - 999 ML/MINUT E LAB eGFR(AA)(LOINC ) eGFR(AA) 57 Low 60 - 999 ML/MINUT E Result Comment: ACCORDING TO THE NATIONAL KIDNEY DISEASE EDUCATION PROGRAM(NKDE), A NORMAL eGFR IS A VALUE GREATER THAN OR EQUAL TO 60 ML/MIN/1.73 SQ METERS. CHRONIC KIDNEY DISEASE: <60mL/MIN/1.73 SQ METERS KIDNEY FAILURE: <15mL/MIN/1.73 SQ METERS THIS TEST SHOULD ONLY BE USED FOR PATIENTS 18 YEARS OF AGE AND OLDER. Performed By: #### [id number] ## ## [place] [id number] TROPONIN Collected: 5 3:00 AM Status: F Source: [facility] TYPE CODE TESTS RESULT OUT OF RANGE REFERENCE UNITS LAB HS TROPONIN(LOINC) HS TROPONIN 9.5 0.0 - 76.2 pg/mL Performed By: #### [id number] ## ## [place] [id number] LACTATE Collected: 3:00 AM Status: F Source: [facility] TYPE CODE TESTS RESULT OUT OF RANGE REFERENCE UNITS LAB LACTATE(LOINC) LACTATE 0.7 0.4 - 2.0 mmol/L Performed By: #### [id number] ## ## [address] [id number] LIPASE Collected: 5 3:00 AM Status: F Source: [facility] TYPE CODE TESTS RESULT OUT OF RANGE REFERENCE UNITS LAB LIPASE(LOINC) LIPASE 25.0 15.0 - 78.0 U/L Result Comment: *PLEASE NOTE THAT RANGES FOR LIPASE HAVE CHANGED OF 09/09/23 DUE TO AN ASSAY UPDATE BY THE WRITING TUTOR.THE NEW ASSAY RANGE IS 6-250 U/L, WITH A REFERENCE RANGE OF 16-77 U/L. Performed By: #### [id number] ## ## [address] [id number] CBC + DIFF Collected: 5 3:00 AM Status: F Source: [facility] TYPE CODE TESTS RESULT OUT OF RANGE REFERENCE UNITS LAB CBC + DIFF(LOINC) CBC + DIFF Result Comment: CBC-COMPLETE BLOOD COUNT LAB WBC(LOINC) WBC 9.5 4.5 - 10.8 x 10EE3/UL LAB RBC(LOINC) RBC 5.07 4.50 - 6.00 x 10EE6/UL LAB HEMOGLOBIN(CHANTE NC) HEMOGLOBIN 14.4 13.0 - 17.5 g/dl LAB HEMATOCRIT(CHANTE NC) HEMATOCRIT 43.0 40.0 - 52.0 % LAB MCV(LOINC) MCV 85 81 - 98 fl LAB MCH(LOINC) MCH 29 27 - 33 pg LAB MCHC(LOINC) MCHC 34 32 - 36 X10 3 LAB RDW/CV(LOINC) RDW/CV 14.6 12.0 - 15.6 % LAB PLATELET(LOINC ) PLATELET 167 150 - 450 x10EE3/UL LAB MPV(LOINC) MPV 7.9 6.4 - 10.5 fl Result Comment: AUTOMATED DI FFERENTIAL LAB NEUT %(LOINC) NEUT % 70.3 46.0 - 76.0 % LAB LYMPH %(LOINC) LYMPH % 18.7 Low 20.0 - 45.0 % LAB MONOS %(LOINC) MONOS % 7.7 0.0 - 10.0 % LAB EO %(LOINC) EO % 3.0 0.0 - 7.0 % LAB BASO %(LOINC) BASO % 0.3 0.0 - 2.0 % LAB Lymph #(LOINC) Lymph # 1.78 0.80 - 2.80 x10EE 3/UL LAB Neut #(LOINC) Neut # 6.69 1.50 - 7.10 x10EE3 /UL LAB [place] #(LOINC) [place] # 0.73 0.20 - 1.00 x10EE3 /UL LAB EO #(LOINC) EO # 0.29 0.00 - 0.50 x10EE3/U L LAB Baso #(LOINC) Baso # 0.03 0.00 - 0.10 x10EE3 /UL LAB MANUAL DIFF(LOINC) MANUAL DIFF N/A LAB MORPHOLOGY(CHANTE NC) MORPHOLOGY N/A Performed By: #### [id number] ## ## [facility],[address] [place] [address] ED VISIT SUMMARY Observed: 03/27/2025 2:27 AM Status: F Source: [facility] Visit [place] [address] [id number] 03/27/2025 Patient: KASI WARREN Sex: Male : 1970 Age: 54y 03/27/2025 06:10 AM EDT ED Arrival:02:27 03/27/2025 EDT Status: Recent Travel:no Language:eng Adv Directive: Isolation Status: Ethnicity:N Fall Risk:no risk Infectious Disease Exposure:no Measurements:5'10" / 177.8 Self-Harm Status:risk Sepsis Screen:negative cm 295.0 lb / 133.8 kg 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 Stopped 03/27/2025. ascorbic acid (vitamin C) 500 mg tablet: 500 mg once a day. Stopped 03/27/2025. aspirin 81 mg capsule: 81 mg once a day. Stopped 03/27/2025. atorvastatin 40 mg tablet: 40 mg once a day. Stopped 03/27/2025. carvedilol 25 mg tablet: 12.5 mg twice a day. Stopped 03/27/2025. cyclobenzaprine 5 mg tablet: 5 mg three times a day. Stopped 03/27/2025. 1 of 4 Visit Overview Eliquis 5 mg tablet: 5 mg twice a day. Stopped 03/27/2025. gabapentin 300 mg capsule: 300 mg three times a day. Stopped 03/27/2025. lisinopril 20 mg tablet: 20 mg once a day. Stopped 03/27/2025. tamsulosin 0.4 mg capsule: 0.4 mg once a day. Stopped 03/27/2025. PAST MEDICAL HISTORY / PROBLEMS CVA - Cerebrovascular Accident DVT - Deep Venous Thrombosis Gout Hypercholesterolemia Hypertension: Active Migraine with aura: Active Neuropathy: Active See nurses notes PAST SURGICAL HISTORY Hemorrhoidectomy Previous Abdominal Surgery Right Patella SOCIAL HISTORY Smoking status: No Alcohol use: No Drug use: No ED COURSE MEDICATIONS GIVEN IN EMERGENCY DEPARTMENT 03:14 03/27/25 Ondansetron IVP 4 mg 03:15 03/27/25 MORPHine IVP 2 mg 03:16 03/27/25 IV NS 0.9 % 1000 mL 999 mL/hr 05:50 03/27/25 Dulcolax PO 15 mg IV SITE INFORMATION INTAKE 2 of 4 Visit Overview OUTPUT REASSESMENT (most recent) 03:18 03/27/25. GENERAL / NEURO / PSYCH: Alert. Oriented X 4. Appears in pain and in distress. RESPIRATORY: Respirations not labored. CVS: Normal sinus rhythm noted. GI / : The patient has had nausea. Abdominal distention. Abdominal tenderness. Abdomen not soft. Abnormal bowel sounds. Diminished bowel sounds. No rebound tenderness, guarding, mass present in the abdominal region or diarrhea. No emesis noted. Stool is not abnormal in color. SKIN: Skin is warm and dry. VITAL SIGNS First Vitals Last Vitals Temp 02:03/27/25 97.9 F Temp 05:52 03/27/25 BP 02:03/27/25 147/98 BP 05:03/27/25 125/90 HR 02:03/27/25 87 HR 05:03/27/25 85 RR 02:03/27/25 14 RR 05:52 03/27/25 15 O2 Sat 02:03/27/25 94% O2 Sat 05:52 03/27/25 95% Pain 02:03/27/25 10 Pain 05:52 03/27/25 5 ETCO2 02:03/27/25 ETCO2 05:52 03/27/25 GCS 02:03/27/25 GCS 05:52 03/27/25 RTS 02:03/27/25 RTS 05:03/27/25 PROCEDURES NURSING INTERVENTIONS LABS / STUDIES LABS / STUDIES ORDERED CBC w Diff CMP CRP CT ABD/PEL w Cont EKG - ED Lactate, Serum Lipase Troponin-I Urinalysis 3 of 4 Visit Overview CLINICAL IMPRESSION ACUTE GENERALIZED ABDOMINAL PAIN CONSTIPATION 4 of 4 ED VITALS FLOW SHEET Observed: 2:27 AM Status: F Source: [facility] Vitals Vital Sign Flow Sheet [address] [address] [id number] 03/27/2025 Patient: KASI WARREN Sex: Male : 1970 Age: 54y Measurements Wt: 133.8 kg, Ht/Conrado: 70.0 in, BMI: 42.33 Measured Time BP MAP HR RR O2Sat ETCO2 Temp Pain GCS RTS 05:52 03/27/2025 125/90 102 85 15 95% 5 02:03/27/2025 147/98 114 87 14 94% 97.9 F 10 1 of 1 ED PHYSICIAN CLINICAL REPORT Observed: 0 03/27/2025 2:27 AM Status: F Source: [facility] Narrative Physician Clinical Narrative [address] [address] [id number] 03/27/2025 02:27:00 Patient: KASI WARREN Sex: Male : 1970 Age: 54y Disposition: Discharge to Home Disposition Decision Time: 05:38 03/27/2025 Departure Time: 05:55 03/27/2025 Measurements Wt: 133.8 kg, Ht/Conrado: 70.0 in, BMI: 42.33 Initial Vital Sign Measured Time BP MAP HR RR O2Sat ETCO2 Temp Pain GCS RTS 02:31 03/27/2025 147/98 114 87 14 94% 97.9 F 10 Time Seen: 02:19 03/27/2025. Arrived- By private vehicle. Historian- patient. HISTORY OF PRESENT ILLNESS Chief Complaint: ABDOMINAL PAIN. It is described as burning and it is described as located in the right upper quadrant, right abdomen and right lower quadrant. This started 1 weeks ago and is still present. At its maximum, severity described as 8 / 10. When seen in the E.D., severity described as 7 / 10. The patient has had nausea. No vomiting. Similar symptoms previously. Patient has had similar symptoms once. Recent medical care: The patient was seen recently in the office. REVIEW OF SYSTEMS 1 of 12 Narrative EYES: No blurred vision. RESPIRATORY: No difficulty breathing or cough. NEUROLOGICAL: No headache. CONSTITUTIONAL: No fever or chills. The patient has not had weight loss. : No difficulty with urination, pain with urination or urinary frequency. GI: No constipation, black stools or hematemesis. MUSCULOSKELETAL: No joint pain. The patient has had back pain. SKIN: No skin rash. CVS: No chest pain. THROAT: No sore throat. PAST HISTORY See nurses notes. CVA - Cerebrovascular Accident DVT - Deep Venous Thrombosis Gout Hypercholesterolemia Hypertension: [Active] Migraine with aura: [Active] Neuropathy: [Active] Surgeries: Hemorrhoidectomy Previous Abdominal Surgery Right Patella Medications: allopurinol 100 mg tablet: 100 mg once a day. Stopped 03/27/2025. ascorbic acid (vitamin C) 500 mg tablet: 500 mg once a day. Stopped 03/27/2025. aspirin 81 mg capsule: 81 mg once a day. Stopped 03/27/2025. atorvastatin 40 mg tablet: 40 mg once a day. Stopped 03/27/2025. carvedilol 25 mg tablet: 12.5 mg twice a day. Stopped 03/27/2025. cyclobenzaprine 5 mg tablet: 5 mg three times a day. Stopped 03/27/2025. Eliquis 5 mg tablet: 5 mg twice a day. Stopped 03/27/2025. gabapentin 300 mg capsule: 300 mg three times a day. Stopped 03/27/2025. lisinopril 20 mg tablet: 20 mg once a day. Stopped 03/27/2025. tamsulosin 0.4 mg capsule: 0.4 mg once a day. Stopped 03/27/2025. Allergies: no known drug allergies SOCIAL HISTORY 2 of 12 Narrative Never smoker. No alcohol use or drug use. ADDITIONAL NOTES The nursing notes have been reviewed. PHYSICAL EXAM Appearance: Alert. Oriented X3. Appears to be in pain. Eyes: Pupils equal, round and reactive to light. ENT: Nose normal. Dry mucous membranes present. Neck: Normal inspection. Neck supple. CVS: Normal heart rate and rhythm. Heart sounds normal. Pulses normal. Respiratory: No respiratory distress. Breath sounds normal. Chest nontender. Abdomen: Soft. Moderate tenderness in the right upper quadrant, right side of the abdomen and right lower quadrant with guarding present. Abnormal bowel sounds: diminished. No organomegaly. No mass. No rebound tenderness or distention. Back: Normal inspection. Skin: Skin warm and dry. No rash. Extremities: Extremities exhibit normal ROM. No lower extremity edema. Neuro: Oriented X 3. No motor deficit. No sensory deficit. LABS, X-RAYS, AND EKG 12-LEAD EKG: EKG time: 02:50 03/27/2025. Normal sinus rhythm. Rate: 82. Normal P waves. Normal QRS complex. Normal ST and T waves. The study has been interpreted contemporaneously by me. The EKG appears to be a good tracing. Interpretation time: 02:51 03/27/2025. CT Abdomen - Pelvis: Postoperative changes to do small bowel segments in the central abdomen with features of a stool impaction at the operative site with resultant mild distended configuration to the small bowel segment at the level of the end of the anastomosis. Right nephrolithiasis. Left nephrolithiasis. Normal appendix as well seen. Mild constipation throughout the colon. Normal heart size. Fatty infiltration of liver. Small exophytic cyst at the lower pole left kidney. The small bowel segment measures up to 6.5 cm in diameter at seen on imaging 18. No conclusive features of bowel obstruction. Small right and left inguinal hernias containing only fat. No free fluid or free air. No abscess or hematoma. Interpretation time: 05:22 03/27/2025. Laboratory Tests: CBC + DIFF 3 of 12 Narrative Final DIMITRI: 03/27/2025 03:00:00 EDT MsgRcvd: 03/27/2025 03:32 EDT Lab Test Result Reference Status Received Comments 03/27/2025 03:32 CBC-COMPLETE CBC + DIFF Final EDT BLOOD COUNT 03/27/2025 03:32 WBC 9.5 x 10/UL 4.5 - 10.8 Final EDT 03/27/2025 03:32 RBC 5.07 x 10/UL 4.50 - 6.00 Final EDT 03/27/2025 03:32 HEMOGLOBIN 14.4 g/dl 13.0 - 17.5 Final EDT 03/27/2025 03:32 HEMATOCRIT 43.0 % 40.0 - 52.0 Final EDT 03/27/2025 03:32 MCV 85 fl 81 - 98 Final EDT 03/27/2025 03:32 MCH 29 pg 27 - 33 Final EDT 03/27/2025 03:32 MCHC 34 X10 3 32 - 36 Final EDT 03/27/2025 03:32 RDW/CV 14.6 % 12.0 - 15.6 Final EDT 03/27/2025 03:32 PLATELET 167 x10/UL 150 - 450 Final EDT 03/27/2025 03:32 AUTOMATED MPV 7.9 fl 6.4 - 10.5 Final EDT DIFFERENTIAL 03/27/2025 03:32 NEUT % 70.3 % 46.0 - 76.0 Final EDT 4 of 12 Narrative Lab Test Result Reference Status Received Comments 18.7 % 03/27/2025 03:32 LYMPH % 20.0 - 45.0 Final Below low normal EDT 03/27/2025 03:32 MONOS % 7.7 % 0.0 - 10.0 Final EDT 03/27/2025 03:32 EO % 3.0 % 0.0 - 7.0 Final EDT 03/27/2025 03:32 BASO % 0.3 % 0.0 - 2.0 Final EDT 03/27/2025 03:32 Lymph # 1.78 x10/UL 0.80 - 2.80 Final EDT 03/27/2025 03:32 Neut # 6.69 x10/UL 1.50 - 7.10 Final EDT 03/27/2025 03:32 [place] # 0.73 x10/UL 0.20 - 1.00 Final EDT 03/27/2025 03:32 EO # 0.29 x10/UL 0.00 - 0.50 Final EDT 03/27/2025 03:32 Baso # 0.03 x10/UL 0.00 - 0.10 Final EDT 03/27/2025 03:32 MANUAL DIFF N/A New Order EDT 03/27/2025 03:32 MORPHOLOGY N/A New Order EDT C-REACTIVE PROTEIN Final DIMITRI: 03/27/2025 03:00:00 EDT MsgRcvd: 03/27/2025 04:03 EDT Lab Test Result Reference Status Received Comments 5 of 12 Narrative Lab Test Result Reference Status Received Comments 2.02 mg/dl 03/27/2025 04:03 CRP 0.00 - 0.90 Final Above high normal EDT CMP with eGFR Final DIMITRI: 03/27/2025 03:00:00 EDT MsgRcvd: 03/27/2025 04:03 EDT Lab Test Result Reference Status Received Comments COMPREHENSIVE 03/27/2025 CMP with eGFR Final METABOLIC 04:03 EDT PANEL 146 mmol/l 03/27/2025 SODIUM Above high 136 - 145 Final 04:03 EDT normal 03/27/2025 POTASSIUM 3.9 mmol/L 3.5 - 5.1 Final 04:03 EDT 03/27/2025 CHLORIDE 107 mmol/L 98 - 107 Final 04:03 EDT 32.6 mmol/L 03/27/2025 CO2 Above high 21.0 - 32.0 Final 04:03 EDT normal 123 mg/dl 03/27/2025 GLUCOSE Above high 74 - 106 Final 04:03 EDT normal 20 mg/dl 03/27/2025 BUN Above high 7 - 18 Final 04:03 EDT normal 1.56 mg/dl 03/27/2025 CREATININE Above high 0.70 - 1.30 Final 04:03 EDT normal 6 of 12 Narrative Lab Test Result Reference Status Received Comments 03/27/2025 AST/SGOT 20 U/L 15 - 37 Final 04:03 EDT 155 U/L 03/27/2025 ALK PHOS Above high 46 - 116 Final 04:03 EDT normal 03/27/2025 CALCIUM 8.7 mg/dl 8.5 - 10.1 Final 04:03 EDT TOTAL 03/27/2025 6.8 g/dl 6.4 - 8.2 Final PROTEIN 04:03 EDT 03/27/2025 ALBUMIN 3.5 g/dL 3.4 - 5.0 Final 04:03 EDT 03/27/2025 GLOBULIN 3.3 G/DL 1.5 - 3.8 Final 04:03 EDT 03/27/2025 A/G RATIO 1.1 0.9 - 1.6 Final 04:03 EDT 03/27/2025 TOTAL BILI 0.9 mg/dl 0.2 - 1.0 Final 04:03 EDT 03/27/2025 B/C RATIO 13 ratio 0 - 30 Final 04:03 EDT 03/27/2025 ALT/SGPT 26 U/L 16 - 63 Final 04:03 EDT 03/27/2025 ANION GAP 10 mmol/L 10 - 20 Final 04:03 EDT 03/27/2025 AGE 54 years Final 04:03 EDT 47 ML/MINUTE 03/27/2025 eGFR 60 - 999 Final Below low normal 04:03 EDT 7 of 12 Narrative Lab Test Result Reference Status Received Comments ACCORDING TO THE NATIONAL KIDNEY DISEASE EDUCATION PROGRAM(NKDE), A NORMAL eGFR IS A VALUE GREATER THAN OR EQUAL TO 60 ML/MIN/1.73 SQ METERS. 57 ML/MINUTE 03/27/2025 CHRONIC KIDNEY eGFR(AA) 60 - 999 Final Below low normal 04:03 EDT DISEASE: <60mL/MIN/1.73 SQ METERS KIDNEY FAILURE: <15mL/MIN/1.73 SQ METERS THIS TEST SHOULD ONLY BE USED FOR PATIENTS 18 YEARS OF AGE AND OLDER. LACTATE Final DIMITRI: 03/27/2025 03:00:00 EDT MsgRcvd: 03/27/2025 04:06 EDT Lab Test Result Reference Status Received Comments 03/27/2025 04:06 LACTATE 0.7 mmol/L 0.4 - 2.0 Final EDT 8 12 Narrative LIPASE Final DIMITRI: 03/27/2025 03:00:00 EDT MsgRcvd: 03/27/2025 04:04 EDT Lab Test Result Reference Status Received Comments *PLEASE NOTE THAT RANGES FOR LIPASE HAVE CHANGED OF 09/09/23 DUE TO AN ASSAY 03/27/2025 LIPASE 25.0 U/L 15.0 - 78.0 Final UPDATE BY THE 04:04 EDT WRITING TUTOR.THE NEW ASSAY RANGE IS 6-250 U/L, WITH A REFERENCE RANGE OF 16-77 U/L. TROPONIN Final DIMITRI: 03/27/2025 03:00:00 EDT MsgRcvd: 03/27/2025 04:03 EDT Lab Test Result Reference Status Received Comments 03/27/2025 04:03 HS TROPONIN 9.5 pg/mL 0.0 - 76.2 Final EDT URINALYSIS Final DIMITRI: 03/27/2025 04:45:00 EDT MsgRcvd: 03/27/2025 05:02 EDT Lab Test Result Reference Status Received Comments 03/27/2025 05:02 URINALYSIS Final URINALYSIS EDT 03/27/2025 05:02 Specimen Type R New Order EDT 9 of 12 Narrative Lab Test Result Reference Status Received Comments NORMAL: 03/27/2025 05:02 Color yellow Final YELLOW EDT NORMAL: 03/27/2025 05:02 Clarity clear Final CLEAR EDT NORMAL: 03/27/2025 05:02 ph 7 Final 5.0-8.0 EDT 15 NORMAL: 03/27/2025 05:02 Protein Final Abnormal NEGATIVE EDT NORMAL: 03/27/2025 05:02 Glucose NORM Final NORMAL EDT NORMAL: 03/27/2025 05:02 Ketone NEG Final NEGATIVE EDT NORMAL: 03/27/2025 05:02 Bilirubin NEG Final NEGATIVE EDT NORMAL: 03/27/2025 05:02 Blood NEG Final NEGATIVE EDT 4 NORMAL: 03/27/2025 05:02 Urobilinog Final Abnormal NORMAL EDT NORMAL: 03/27/2025 05:02 Sp [place] 1.010 Final 1.010-1.030 EDT NORMAL: 03/27/2025 05:02 Nitrite NEG Final NEGATIVE EDT NORMAL: 03/27/2025 05:02 Leukocytes NEG Final NEGATIVE EDT 03/27/2025 05:02 Microscopic NOT INDICATED Final EDT 10 of 12 Narrative PROGRESS AND PROCEDURES MEDICAL DECISION MAKING: Ordered tests include a CT of the abdomen and pelvis, complete blood count, chemistries, liver function tests, a serum lipase, urinalysis and lactate. The patient has been stable. IV fluids and narcotics have been given and antiemetics have been given. (54-year-old white male complaining of right-sided abdominal pain that radiates to the right lower quadrant that started last week. He states he thought it was "heartburn". He states Tuesday and Tuesday the pain was fine and then tonight before bed the pain got bad and then it kept getting worse throughout the night so he presents here for evaluation. The patient states he still does have his appendix and his gallbladder. He presently rates his pain as an 8 on a severity scale 1-10. Describes pain as sharp in nature. Pain is somewhat worse with movement. He has complained of some nausea but denies any vomiting.). Disposition: Condition: good. Disposition Decision Time: 05:38 03/27/2025. Patient discharged to Home. Discharged in good condition. Discharge decision based on the following: patient's condition is stable; patient is ambulatory; patient's pain is controlled; patient's exam is stable; minimally abnormal test results; stable condition on multiple repeat evaluations; social support is adequate; transportation is available; follow-up is available; clinical impression is consistent with outpatient treatment. CLINICAL IMPRESSION Acute generalized abdominal pain. Constipation DISCHARGE INSTRUCTIONS Drink plenty of fluids. (Take medication as prescribed. CT scan of the abdomen/pelvis did show constipation. No bowel obstruction. No acute appendicitis.). Warnings: GENERAL WARNINGS: Return or contact your physician immediately if your condition worsens or changes unexpectedly, if not improving as expected, or if other problems arise. Prescription Medications: Dulcolax (bisacodyl) 5 mg tablet,delayed release: Take 3 tablet by mouth once a day as needed for constipation for 10 days, dispense 30 tablet. Refills 0. Pharmacy: [facility] [phone] [place] [address]. Narrative Follow-up: Follow up with doctor in four days. Call for an appointment. Reason for referral: evaluation and treatment. Summary of care provided to patient and family. dr quijano. Understanding of the discharge instructions verbalized by patient and family. (Electronically signed by Cisco Urrutia D.O. 03/27/25 06:09:34 EDT) Generated by [facility] of 12 ED NURSES CLINICAL NOTE Observed: 2024 2:27 AM Status: F Source: [facility] Nurse Narrative Nurse Clinical Narrative [address] [place] [address] [phone] 03/27/2025 02:27:00 Patient: [id number] Sex: Male : 1970 Age: 54y Disposition: Discharge to Home Disposition Decision Time: 05:38 03/27/2025 Departure Time: 05:55 03/27/2025 TRIAGE Arrived by private vehicle. Historian: (patient). Accompanied by spouse. Primary physician ([place]). Triage time: 02:30 03/27/2025. Acuity: LEVEL 3. 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 SIRS criteria negative. No possible sources of infection. -- 02:03/27/25 PAVITHRA Reynolds R.N. 02:31 03/27/25. BP: 147/98 MAP: 114. HR: 87. RR: 14. O2 saturation: 94% Temperature: 97.9 F. Pain level now 10/10. -- 02:32 03/27/25 PAVITHRA Reynolds R.N. Measurements: 02:03/27/25 Wt: 133.8 kg, Ht/Conrado: 70.0 in, BMI: 42.33 -- 02:03/27/25 PAVITHRA Reynolds R.N. Medications: tamsulosin 0.4 mg capsule: 0.4 mg once a day. Stopped 03/27/2025. -- 02:37 03/27/25 PAVITHRA Reynolds R.N. lisinopril 20 mg tablet: 20 mg once a day. Stopped 03/27/2025. -- 02:37 03/27/25 PAVITHRA Reynolds R.N. gabapentin 300 mg capsule: 300 mg three times a day. Stopped 03/27/2025. -- 02:37 03/27/25 PAVITHRA Reynolds R.N. 1 of 4 Nurse Narrative Eliquis 5 mg tablet: 5 mg twice a day. Stopped 03/27/2025. -- 02:37 03/27/25 PAVITHRA Reynolds R.N. cyclobenzaprine 5 mg tablet: 5 mg three times a day. Stopped 03/27/2025. -- 02:37 03/27/25 PAVITHRA Reynolds R.N. carvedilol 25 mg tablet: 12.5 mg twice a day. Stopped 03/27/2025. -- 02:37 03/27/25 PAVITHRA Reynodls R.N. atorvastatin 40 mg tablet: 40 mg once a day. Stopped 03/27/2025. -- 02:37 03/27/25 PAVITHRA Reynolds R.N. aspirin 81 mg capsule: 81 mg once a day. Stopped 03/27/2025. -- 02:37 03/27/25 PAVITHRA Reynolds R.N. ascorbic acid (vitamin C) 500 mg tablet: 500 mg once a day. Stopped 03/27/2025. -- 02:37 03/27/25 PAVITHRA Reynolds R.N. allopurinol 100 mg tablet: 100 mg once a day. Stopped 03/27/2025. -- 02:37 03/27/25 PAVITHRA Reynolds R.N. 02:32 03/27/25. Preferred Pharmacy: [facility] -- 02:03/27/25 PAVITHRA Reynolds R.N. Allergies: no known drug allergies -- 02:03/27/25 PAVITHRA Reynolds R.N. Problems: CVA - Cerebrovascular Accident -- 02:03/27/25 PAIVTHRA Reynolds R.N. Hypertension: Active -- 02:03/27/25 PAVITHRA Reynolds R.N. Migraine with aura: Active -- 02:03/27/25 PAVITHRA Reynolds R.N. Gout -- 02:03/27/25 PAVITHRA Reynolds R.N. Neuropathy: Active -- 02:03/27/25 PAVITHRA Reynolsd R.N. DVT - Deep Venous Thrombosis -- 02:03/27/25 PAVITHRA Reynolds R.N. Hypercholesterolemia -- 02:03/27/25 PAVITHRA Reynolds R.N. Surgeries: Right Patella -- 02:03/27/25 PAVITHRA Reynolds R.N. Previous Abdominal Surgery -- 02:03/27/25 EDT Ning Reynolds, R.N. Hemorrhoidectomy -- 02:03/27/25 EDT Ning Reynolds R.N. History 02:03/27/25. SOCIAL HX: Never smoker. No alcohol use or drug use. The patient has not traveled outside the [place] Infectious disease exposure: No infectious disease exposure. 2 of 4 Nurse Narrative ABUSE ASSESSMENT: The patient answered "yes" to the question(s) "Do you feel safe in your home?" and "no" to the question(s) "Are you afraid to go home?". SELF HARM ASSESSMENT: Self harm assessment was performed. The patient answered no to the question(s) "Have you recently felt down, depressed, or hopeless?" and "Do you have thoughts of harming or killing yourself?". FALL RISK ASSESSMENT: Fall risk assessment completed. No risk factors identified. -- 02:03/27/25 EDT Ning Reynolds R.N. Interventions 02:03/27/25. Identification band on patient. -- 02:03/27/25 EDT Ning Reynolds R.N. PHYSICAL ASSESSMENT 03:03/27/25. GENERAL / NEURO / PSYCH: Alert. Oriented X 4. Appears in pain and in distress. RESPIRATORY: Respirations not labored. CVS: Normal sinus rhythm noted. GI / : The patient has had nausea. Abdominal distention. Abdominal tenderness. Abdomen not soft. Abnormal bowel sounds. Diminished bowel sounds. No rebound tenderness, guarding, mass present in the abdominal region or diarrhea. No emesis noted. Stool is not abnormal in color. SKIN: Skin is warm and dry. -- 03:03/27/25 EDT Margo Vasquez R.N. NURSING PROGRESS NOTES 03:03/27/25. Ondansetron IVP 4 mg given via Site# 1. Allergies verified and confirmed 5 rights. IV patency established. IV site checked: no pain, redness, or swelling. IV flushed thoroughly pre-medication administration. IVP given by nurse. Information reviewed with patient. Verbalizes understanding. -- 03:03/27/25 EDT Margo Vasquez R.N. 03:03/27/25. MORPHine IVP 2 mg given via Site# 1. Allergies verified and confirmed 5 rights. IV patency established. IV site checked: no pain, redness, or swelling. IV flushed thoroughly pre-medication administration. IVP given by nurse. Information reviewed with patient including sedative warning. Verbalizes understanding. -- 03:16 03/27/25 EDT Margo Vasquez R.N. 03:16 03/27/25. IV NS 0.9 % 1000 mL started in bag#1 1000 mL at 999 mL/hr via Site# 1. Allergies verified and confirmed 5 rights. Via dial-a-flow. IV patency established. IV site checked: no pain, redness, or swelling. IV flushed thoroughly pre-medication administration. Information reviewed with patient. Verbalizes understanding. -- 03:18 03/27/25 EDT Margo Vasquez R.N. 3 of 4 Nurse Narrative 03:22 03/27/25. Patient gowned. Call light placed in reach. Side rails up x 2. Bed placed in lowest position. Brakes of bed on. -- 03:47 03/27/25 EDT Margo Vasquez R.N. 03:45 03/27/25. Patient walked to radiology with donor services technician. -- 03:48 03/27/25 EDT Margo Vasquez R.N. 04:02 03/27/25. Patient walked back from radiology with donor services technician. -- 04:02 03/27/25 EDT Margo Vasquez R.N. 04:43 03/27/25. IV NS 0.9 %: Medication Discontinued. bag #1 infused. Total amount infused: 1000 mL. IV patency established. IV site checked: no pain, redness, or swelling. IV flushed thoroughly post-medication administration. -- 04:58 03/27/25 EDT Margo Vasquez R.N. 05:32 03/27/25. Call light placed in reach. Side rails up x 2. Bed placed in lowest position. Brakes of bed on. -- 05:32 03/27/25 EDT Margo Vasquez R.N. 05:50 03/27/25. Dulcolax PO 15 mg given. Allergies verified and confirmed 5 rights. Information reviewed with patient. Verbalizes understanding. (Verified with Ning CASE). -- 05:50 03/27/25 EDT Margo Vasquez R.N. DISPOSITION / DISCHARGE 03:05 03/27/25. Site #1 started in the left antecubital space with an 18g angiocath using topical anesthetic with aseptic technique, ultrasound guidance and good blood return; 2 attempts. Blood drawn: rainbow set and barrow tube(s). Saline lock flushed with 10 mL saline. -- 03:15 03/27/25 EDT Margo Vasquez R.N. 05:52 03/27/25. BP: 125/90 MAP: 102. HR: 85. RR: 15. O2 saturation: 95% Pain level now 10. -- 06:07 03/27/25 EDT Margo Vasquez R.N. 05:53 03/27/25. Site #1 removed upon discharge. Pressure dressing applied. -- 06:08 03/27/25 EDT Marog Vasquez R.N. Departure time: 05:55 03/27/2025. Condition at departure: improved. No learning barriers present. Discharge instructions provided and reviewed with the patient. Reviewed medication(s). Prescription(s) sent electronically to pharmacy. Patient verbalized understanding. Written instructions provided in [place]. The patient was discharged by the physician. The patient was discharged home and accompanied by spouse. The patient left ambulatory and via private vehicle. Spouse driving. -- 06:09 03/27/25 EDT Margo Vasquez R.N. (Electronically signed by Margo Vasquez R.N. 03/27/25 06:10:02 EDT) Generated by [facility] 4 of 4 ED ORDER SHEET (CPOE ONLY) Observed: 2:27 AM Status: F Source: [facility] Order Sheet Order Sheet [address] [place] [address] [id number] 03/27/2025 Patient: KASI WARREN Sex: Male : 1970 Age: 54y MEASUREMENTS: Wt: 133.8 kg, Ht/Conrado: 70.0 in, BMI: 42.33 ALLERGIES: No known drug allergies MEDICATION/IV/DRIP/FLUID ORDERS Order Description Priority Entered Acknowledged Completed IV NS 0.9 %1000 mL at 999 02:35 03/27/2025 02:44 03:18 mL/hr (NOW x1) Cisco Urrutia D.O. 03/27/2025 03/27/2025 Adrianna Leonard R.N. Ondansetron IVP4 mg (NOW x1) 02:36 03/27/2025 02:44 03:15 Cisco Urrutia D.O. 03/27/2025 03/27/2025 Adrianna Leonard R.N. MORPHine IVP2 mg (NOW x1, 02:36 03/27/2025 02:44 03:16 HIGH ALERT MEDICATION) Cisco Urrutia D.O. 03/27/2025 03/27/2025 Adrianna Leonard R.N. Dulcolax PO15 mg (NOW x1) 05:38 03/27/2025 05:40 05:50 Cisco Urrutia D.O. 03/27/2025 03/27/2025 Adrianna Leonard R.N. LAB ORDERS Order Description Priority Entered Acknowledged Collected Completed CBC w Diff Stat Stat 02:35 03/27/2025 02:44 03/27/2025 03:19 03/27/2025 1 of 3 Order Sheet Edelmira Ross R.N. Alivia King, R.N. CMP Stat Stat 02:35 03/27/2025 02:44 03/27/2025 03:19 03/27/2025 Edelmira Ross R.N. Alivia King, R.N. Troponin-I Stat Stat 02:35 03/27/2025 02:44 03/27/2025 03:19 03/27/2025 Edelmira Ross R.N. Alivia King, R.N. EKG - ED Stat Stat 02:35 03/27/2025 02:44 03/27/2025 02:54 03/27/2025 Edelmira Ross R.N. Alivia King, R.N. Lactate, Serum Stat Stat 02:35 03/27/2025 02:44 03/27/2025 03:19 03/27/2025 Edelmira Ross R.N. Alivia King, R.N. Urinalysis Stat Stat 02:35 03/27/2025 02:44 03/27/2025 04:57 03/27/2025 Edelmira Ross R.N. Alivia King R.N. Lipase Stat Stat 02:35 03/27/2025 02:44 03/27/2025 03:19 03/27/2025 Edelmira Ross R.N. Alivia King, R.N. CRP Stat Stat 02:35 03/27/2025 02:44 03/27/2025 03:19 03/27/2025 Edelmira Ross R.N. Alivia King R.NKrystle DIAGNOSTIC STUDY ORDERS Order Description Priority Entered Acknowledged Completed CT ABD/PEL w Cont Stat Stat 02:35 03/27/2025 02:44 04:05 Cisco Urrutia D.O. 03/27/2025 03/27/2025 Adrianna Leonard R.NKrystle Reason for Study: Abdominal Pain 2 of 3 Order Sheet STAFF ORDERS Order Description Priority Entered Acknowledged Collected Completed Vital Signs every 30 02:35 03/27/2025 02:44 03/27/2025 02:54 03/27/2025 minutes Edelmira Ross R.N. Alivia King, R.NKrystle Retort Setter 02:35 03/27/2025 02:44 03/27/2025 02:54 03/27/2025 Edelmira Ross R.N. Alivia King, R.Samuel Oxygen titrate to 92% 02:35 03/27/2025 02:44 03/27/2025 02:54 03/27/2025 Edelmira Ross R.N. Alivia King, R.NKrystle [Electronically signed by Cisco Urrutia D.O. (03/27/2025 06:09 EDT)] 3 of 3 ED MED ADMINISTRATION DETAIL Observed: 0 03/27/2025 2:27 AM Status: F Source: [facility] Biological Lab Technician Medication Administration Record [place] [address] [place] [address] [phone] 03/27/2025 Patient: KASI WARREN Sex: Male : 1970 Age: 54y MEASUREMENTS: Wt: 133.8 kg, Ht/Conrado: 70.0 in, BMI: 42.33 ALLERGIES: No known drug allergies Medication Ordered Medication Administration Date/Time IV NS 0.9 % 1000 03:16 03/27 IV NS 0.9 % 1000 mL started in bag#1 1000 mL at Started mL at 999 mL/hr 999 mL/hr via Site# 1. Allergies verified and confirmed 5 rights. Via 03:16 03/27/2025 (NOW x1) dial-a-flow. IV patency established. IV site checked: no pain, Margo Vasquez R.N. redness, or swelling. IV flushed thoroughly pre-medication Stopped administration. Information reviewed with patient. Verbalizes 04:43 03/27/2025 understanding. - 03:18 Adrianna Leonard R.N. Scanned 04:43 03/27 Medication Discontinued: bag #1 infused. Total amount infused: 1000 mL. IV patency established. IV site checked: no pain, redness, or swelling. IV flushed thoroughly post-medication administration. - 04:58 Margo Vasquez R.N. Ondansetron IVP 4 03:14 03/27 Ondansetron IVP 4 mg given via Site# 1. Allergies Given mg (NOW x1) verified and confirmed 5 rights. IV patency established. IV site 03:14 03/27/2025 checked: no pain, redness, or swelling. IV flushed thoroughly Margo Vasquez R.N. pre-medication administration. IVP given by nurse. Information Scanned reviewed with patient. Verbalizes understanding. - 03:15 Margo Vasquez R.N. 1 of 2 Biological Lab Technician Medication Ordered Medication Administration Date/Time MORPHine IVP 2 03:15 03/27 MORPHine IVP 2 mg given via Site# 1. Allergies Given mg (NOW x1, HIGH verified and confirmed 5 rights. IV patency established. IV site 03:15 03/27/2025 ALERT checked: no pain, redness, or swelling. IV flushed thoroughly Marog Vasquez R.N. MEDICATION) pre-medication administration. IVP given by nurse. Information Scanned reviewed with patient including sedative warning. Verbalizes understanding. - 03:16 Margo Vasquez R.N. Dulcolax PO 15 mg 05:50 07 Dulcolax PO 15 mg given. Allergies verified and Given (NOW x1) confirmed 5 rights. Information reviewed with patient. Verbalizes 05:50 03/27/2025 understanding. (Verified with Ning CASE). - 05:50 Adrianna Leonard R.N. Not Scanned 2 of 2 ED SUPER BILL Observed: 03/27/2025 2:27 AM Status: F Source: [address] [address] [id number] 03/27/2025 Patient: KASI WARREN Sex: Male : 1970 Age: 54y Item Facility Professional Category Description Code Code Quantity Fee Total Drugs Normal Saline 070752 1 $0.00 $0.00 1000cc (934438) Nurse/E/M EMERGENCY 181788 1 $0.00 $0.00 DEPARTMENT VISIT HIGH/URGENT SEVERITY (66442-73) Nurse/IV/IM/Infusions Hydration 156421 1 $0.00 $0.00 additional hour (62424) Nurse/IV/IM/Infusions IVP additional 340133 1 $0.00 $0.00 push (02723) Nurse/IV/IM/Infusions IVP initial 456916 1 $0.00 $0.00 (99671) Grand Total $0.00 Providers Cisco Urrutia D.O. 1 of 2 [facility] Chief Complaint ABDOMINAL PAIN. Principal Diagnosis Acute generalized abdominal pain. Constipation ICD-10 Codes R10.84: Generalized abdominal pain K59.00: Constipation, unspecified 2 of 2 PROGRESS Observed: 03/21/2025 3:00 PM Status: COMPLETED Source: [facility] AMBULATORY Neurology Follow Up Note [facility] Date of Service: 03/21/25 Service Type: Follow up, neurology Patient: Kasi Warren Date of : 1970 (54 y.o.) PCP: Vito Quijano, ASSESSMENT: Kasi Warren is a 54 y.o. man who presents for follow up of headaches, possible neuropathy. Patient reports various symptoms since December 2023 when he suffered small strokes in setting of sepsis/bacteremia. He has headaches, which were variably described as feeling like "squirrels running through my head", "feels like my nose is bleeding but it isn't," "head exploded", etc. It is constant. He has other features such as difficulty focusing, subjective memory loss, tinnitus, and mood changes/irritability. His exam is fairly unremarkable, though limited by poor compliance. There are some functional features including giveway weakness and stuttering speech. As mentioned, he suffered a few tiny embolic strokes in December 2023 in the setting of sepsis/bacteremia. MRI at the time showed scattered small bi-hemispheric ischemic strokes. The burden of ischemia was very low. MIGDALIA was negative. He did have a DVT, so was put on Eliquis; he is unsure if he still takes it but I don't think so. Stroke risk factors other than his prior sepsis include ADILSON, HLD, HTN, and obesity. Repeat MRI brain in January 2024 was unremarkable with no further sign of ischemic injury; the previous strokes are not easily identified, due to their small size. MRV was negative. Certainly the tiny strokes are not responsible for his headaches or any of his other symptoms. I would expect a full recovery from such minimal ischemic insult within a few months at most, usually much less in a younger individual. Would work on modifiable risk factors (ADILSON, HTN, obesity, etc) to avoid future strokes but since these were likely provoked by bacteremia his stroke risk is not massively elevated above normal. The headaches do not meet ICHD-3 criteria for migraine or any other primary headache disorder. Some somatic features of untreated mood disorder may contribute. I did initially have some concern that potentially there was some factitious component given his fluctuating descriptions, psychogenic exam features, etc, requests for pain meds, etc, though he has responded fairly well to other treatments so this is less likely to be a factor now if it ever was. I still would absolutely avoid opioids. Gabapentin he feels is somewhat helpful. Topiramate wasn't helping. Memantine he initially called in and said it wasn't helpful so I switched him to venlafaxine in a phone encounter. Later he brought in his meds and said that he was still taking memantine and it was definitely helpful with headache pain cut in half or better. I'm not sure if he ever took venlafaxine or not. Addition of nortriptyline up to 30mg didn't seem to help. We will add olanzapine at night which helps with headaches but also helps with mood and with his sleep issues. 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 Local personal driving should be fine. I do think that he can return to part-time work for other lower-intensity jobs. 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 History of neuropathy for last couple of years. EMG reportedly showed severe bilateral sensorimotor polyneuropathy - I do not have the full report, just his prior neurologist's note. Full lab workup was unremarkable. A repeat EMG may be beneficial in the future but he wants to focus on his more pressing symptoms, like the headaches. Of note, he reports absence to any light touch or pinprick but relatively intact vibratory and proprioceptive skills, which suggests if there is a neuropathy it is predominantly small fiber. He attributes it to a T12 compression fracture which obviously is not the cause. We are making headway on his headache pain so once that is better dealt with we may work on repeating EMG and neuropathy workup. For stroke prevention, he just needs ASA 81mg daily and his statin. Does not have a clear neurologic indication for anticoagulation. Problems addressed in this visit: 1. Chronic intractable headache, unspecified headache type 2. History of stroke PLAN: Medication changes: continue gabapentin 300mg TID. Memantine 10mg BID. Olanzapine 5mg nightly. Labs: none Imaging: none Other: none Follow Up: 3 months Attestation: Discussed risks, benefits and alternatives regarding treatment options, and diagnoses with Mr Warren and his . Answered questions and we discussed plan at length. I independently reviewed past history, previous clinic notes, lab results, allergies, medications and radiology images which are summarized in this note with annotations wherever appropriate. Time statement: A total of 52 minutes were spent on this encounter. This includes the following patient-centered activities: 1. Preparation for patient's visit (reviewing previous chart, current medical records, previous history, exam, test, procedure, and medications) 2. Face to face encounter obtaining history from the patient/family/caregivers; performing evaluation and examination; ordering medications, tests, or procedures; referring and communicating with other healthcare professionals; counseling and education of the patient/family/caregiver; independently interpreting results (tests, labs, procedures, imaging) and communicating and explaining results to the patient/family/caregiver 3. Coordination of care; preparing and printing discharge instruction and any educational material for the patient and caregivers. Documenting clinical information in the electronic and other health records. Reviewing OARRS as needed. Salvatore Georges MD Staff Neurologist [facility] [id number] [id number], [facility] [id number] [facility] 03/21/25 Subjective Chief Complaint/Reason for Consult: headaches Informant(s): self, Initial History of Present Illness 08/31/24: Kasi Warren is a 54 y.o. man who reports a pertinent history of stroke, DVT, ADILSON, HTN, HLD, COPD, CKD, who presents to the office today for headaches. Extremely poor historian ( is not that much better). Patient was admitted in December 2023 for AMS, was in septic shock, found to have group A streptococcal bacteremia along with acute respiratory failure, renal failure, and bilateral lower extremity cellulitis and DVT. MRI brain showed scattered small bihemispheric ischemic strokes, felt to be embolic related to sepsis, DVT. A MIGDALIA was unremarkable. He says that since then he has had a constant severe headache. It is variably described as feeling like "squirrels running through my head", "feels like my nose is bleeding but it isn't," "head exploded", "pressure", "stabbing everywhere", "pounding", "ringing", etc. Whole head seems to be involved sometimes radiating into the neck/shoulders. Tinnitus appears to be intermittent in both ears. Sensitive to light and sound. Memory feels poor. says he will forget everything, sometimes he thinks he is living in the past. She has to explain everything that has happened to him. Mood is very poor. He gets distracted easily. Has not been back to work since the stroke, says he was told not to drive although he doesn't know who told him this. He takes Tylenol, multiple per day, for the headaches, with no relief. He cannot tell me anything about what has been tried for it, and does not know any of his meds or what they are for. I see he is on topiramate, which is likely for headaches, though he does not know why or if it helped; doesn't think it did help. He does carry a diagnosis of dyslexia by his report and reports some chronic reading difficulty. Has chronic numbness in the feet since 2010 or so. Reportedly diagnosed with EMG in [address] Hall which showed neuropathy but we do not have access to the study. He says this is due to a T12 compression fracture. It does not appear to be progressing. He says he can't feel anything in his legs at all, though see exam below for true sensory exam. Interval history 03/21/25: Headaches are doing OK. Gave up on the amitriptyline as he did not feel like it helped his sleep. He continues to have significant mood disturbance and difficulty focusing but feels like he is ready to go back to work. 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 Review of Systems: All systems reviewed and negative except those documented in the History of Present Illness (HPI). Pertinent positives are documented below: + headaches + memory loss + numbness Medical/Surgical/Social/Family Histories: Pertinent Family Hx: no pertinent family hx Social situation: denies drug, alcohol, tobacco use He has a past medical history of Asthma, CKD (chronic kidney disease), COPD (chronic obstructive pulmonary disease) (HCC), Gout, HLD (hyperlipidemia), HTN (hypertension), ADILSON (obstructive sleep apnea), and Stroke (HCC) (12/23/2023). He has no past surgical history on file. He family history is not on file. He reports that he does not drink alcohol and does not use drugs. Allergies: Allergies: Patient has no known allergies. HOME Medications: Current Outpatient Medications Medication Instructions allopurinoL (ZYLOPRIM) 100 mg, Daily apixaban (ELIQUIS) 5 mg, Oral, 2 times daily ascorbic acid, vitamin C, (VITAMIN C) 500 MG tablet aspirin 81 mg, Daily atorvastatin (LIPITOR) 40 mg, Daily carvediloL (COREG) 12.5 mg, 2 times daily with meals gabapentin (NEURONTIN) 300 mg, Oral, 3 times daily lisinopriL (PRINIVIL,ZESTRIL) 5 mg, Oral, Daily with lunch memantine (NAMENDA) 10 mg, Oral, 2 times daily OLANZapine (ZYPREXA) 5 mg, Oral, Nightly tamsulosin (FLOMAX) 0.4 mg, Daily Objective OBJECTIVE: Physical Examination: BP (!) 144/90 Pulse 83 SpO2 97% GENERAL: General Appearance: In NAD HEENT: Normocephalic. No conjunctival injection. Ears appear normal. No substantial sinus drainage. See below for vision/hearing Neck: Supple, no focal bony tenderness, no mass lesions Respiratory Effort: Normal Extremities: No edema Skin: No rashes visualized MSK: No joint deformities Headache specific exam shows moderate diffuse scalp tenderness. no scalp mass. No focal areas of tenderness over the mastoid, greater or lesser occipital nerve exit points. No vascular thickening or other mass lesions noted over the temples. TMJ is nontender, and unrestricted. No sinus tenderness noted anywhere. No focal tenderness over the cervical paraspinal muscles, trapezius muscles, and scapular muscles. no myofascial trigger point tenderness elsewhere. Fundoscopic Exam: unable to adequately visualize fundus due to light sensitivity and poor participation in exam. The edges of the optic disc appeared to be clear so there is no major edema although the full area was not visualized. Neurologic Exam: MENTAL STATUS: Alertness, Attention Span & Concentration: awake. He has poor eye contact. He is distractible. Loses train of thought. Does not participate well in formal exam, low effort on testing. Language: more fluent. Speech: not as stuttered this time Orientation: Oriented to person, place, time/date, and situation CRANIAL NERVES: II - Visual Santacruz: Normal II, III: Pupils: PERRL, no RAPD III, IV, : Eye Movements: Normal (EOMI, No ptosis, No nystagmus) V - Facial Sensation: Normal VII: Face Symmetry & Strength: Normal VIII - Hearing: Normal to finger rub b/l IX, X - Palate: Normal, elevates symmetrically XI - Shoulder Shrug: Normal XII - Tongue Protrusion: Normal, symmetric MOTOR: Pain and/or effort limited,with giveway weakness basically throughout. There is some probably true chronic weakness in the right shoulder from old injury. No other obvious focal weakness. Tone is normal. SENSATION: Fine Touch: reportedly absent below knees Pinprick: absent below knees Proprioception: Normal Vibration: basically normal in lower extremities; in upper extremities he reports feeling it persist long after it actually has stopped Temperature: Normal REFLEXES: Right Reflexes Left 2+ Biceps 2+ 2+ Triceps 2+ 2+ Brachioradialis 2+ 1+ Patellar 1+ 1+ Achilles 1+ Down Plantar Response (Babinski) Down REFLEXES LANDEROS: 4+ Sustained Clonus 3+ Brisk 2+ Normal 1+ Diminished 0 Absent AMY Unable to Assess COORDINATION: Coordination [id number]: Normal STANCE AND GAIT: Slow, cautious gait, uses cane or walker to stabilize. Wide based. MOVEMENT DISORDERS EXAMINATION: Tremor - no tremors noted Bradykinesia - None Rigidity - None Dyskinesia/Choreoathetosis - None Dystonia/Myoclonus/Tics - None PRIOR TESTING: Imagin12/23/23 CT head: No acute intracranial process. Probably an old lacunar infarct in the right globus pallidus. Small air-fluid levels in the maxillary sinuses. 12/23/23 Ultrasound duplex venous legs bilateral: No evidence of deep or superficial vein thrombosis in the right lower extremity. Acute deep vein thrombosis in the posterior tibial and one of the paired peroneal veins of the left lower extremity. 12/24/23 MR brain: There are multiple small foci of diffusion restriction throughout the white matter of the cerebral hemispheres mostly in the frontal lobes and left temporal lobe consistent with small acute to subacute embolic infarcts. No hydrocephalus. No mass effect. No evidence of hemorrhage. No masses. 12/26/23 Ultrasound doppler carotid: Normal duplex examination of the right and left internal carotid arteries. Right and left vertebral arteries are patent with antegrade flow. 12/26/23 MIGDALIA: Normal left ventricular size and systolic function. Normal right ventricular size and systolic function. No significant valvular abnormality. No vegetation or evidence of valvular endocarditis visualized. No mass or thrombus visualized in the right atrium, left atrium or left atrial appendage. Catheter visualized within the right atrium. No thrombus/vegetation visualized attached to the PICC line catheter. Intact interatrial septum by color Doppler and agitated saline. There is no pericardial effusion. 12/27/23 CT head: Mild age-appropriate volume loss. Mild patchy low-density white matter disease, likely small vessel ischemic changes. No mass, bleed or any obvious large vessel infarct. Partial opacification of the paranasal sinuses the mastoid air cells likely related to intubated status. 12/29/23 Ultrasound duplex venous legs bilateral: No evidence of deep or superficial vein thrombosis in the right lower extremity. No change in acute deep vein thrombosis in the posterior tibial veins of the left lower extremity. Complete resolution of thrombus in the left peroneal veins. 02/04/24 MRI brain w/o: No acute intracranial infarct. Mild to moderate burden of T2/FLAIR hyperintense foci within the periventricular white matter. Stable. No clear sign of prior infarcts. 02/04/24 MRI C-spine w and wo: no cord signal abnormality or enhancement. Mild degenerative changes with disc osteophyte complex at C4-5 causing mild spinal stenosis and mild left foraminal stenosis. Similar at C5-6 and C6-7, both of which have mild spinal stenosis, moderate right and mild left foraminal stenosis. 02/04/24 MRI T-spine w/ and w/o: no enhancement or cord signal abnormality. Mild degenerative changes. There are 13 thoracic vertebrae with a mild chronic compression fracture at T13. 02/04/24 MRI L-spine w/ and w/o: no enhancement or cord signal abnormality. Mild degenerative changes without significant foraminal or central stenosis. 05/07/24 CT head: No acute intracranial findings. Stable mild atrophy and white matter disease changes. EMG BLE 04/13/[address] Hall reportedly showed severe sensorimotor neuropathy but we don't have the full report Labs: CBC with anemia, Hgb 12.4 on last check. CK 26, aldolase 2.8 (both low normal). BMP WNL. A1c 5.5. Previous workup including B12, folate, MMA, HIV, LOYD panel, ANCA, copper, negative. Immunofixation normal. SPEP with decreased gammaglobulins. HALLE borderline at 1:40 speckled. AUTHENTICATED BY SALVATORE GEORGES, ON 03/25/2025 07:07:27 CBC W/AUTO DIFFERENTIAL Collected: 03/14/2025 12:06 P M Status: F Source: [facility] TYPE CODE TESTS RESULT OUT OF RANGE REFERENCE UNITS LAB WBCS(LOINC) WBC 8.1 3.6-10.8 K/uL LAB RBC(LOINC) RBC 5.30 4.13-5.69 M/uL LAB HGB(LOINC) HGB 14.9 12.4-17.3 g/dL LAB HCT(LOINC) HCT 45.2 36.7-50.6 % LAB MCV(LOINC) MCV 85.3 80.0-94.0 fL LAB MCH(LOINC) MCH 28.1 27.0-31.0 pg LAB MCHC(LOINC) MCHC 33.0 33.0-37.0 g/dL LAB RDW(LOINC) RDW 13.7 11.5-14.5 % LAB PLTI(LOINC) Platelet Count 181 148-402 K/uL LAB MPV(LOINC) MPV 9.5 7.4-10.4 fL LAB ASEGR(LOINC) Neutrophils Abs. # 5.60 High 2.20-4.80 K/uL LAB ALYMR(LOINC) Lymphocytes Abs. # 1.90 1.30-2.90 K/uL LAB AMONR(LOINC) Monocytes Abs. # 0.50 0.30-0.80 K/uL LAB ABASR(LOINC) Basophils Abs. # 0.03 0.00-0.10 K/uL LAB AEOSR(LOINC) Eosinophils Abs. # 0.20 0.00-0.20 K/uL LAB AIMGR(LOINC) Imm Grans Absolute # 0.00 0.00-0.10 K/uL LAB SEGR(LOINC) Neutrophils % 68.8 High 43.0-65.0 % LAB LYMPR(LOINC) Lymphocytes % 22.9 17.0-45.5 % LAB MONOR(LOINC) Monocytes % 6.1 5.5-11.7 % LAB BASOR(LOINC) Basophils % 0.4 0.2-1.0 % LAB EOSR(LOINC) Eosinophils % 1.8 0.9-2.9 % LAB IMGR(LOINC) Imm Grans % 0.00 0.00-1.00 % Performed By: #### CBCS #### [address] [id number] LIPID PANEL Collected: 03/14/2025 12:06 PM Status: F Source: [facility] TYPE CODE TESTS RESULT OUT OF RANGE REFERENCE UNITS LAB CHOL(LOINC) Cholesterol 131 0-200 mg/dL LAB TRIG(LOINC) Triglycerides 97 0-149 mg/dL Result Comment: 150-199 Bord radha High 200-499 High >499 Very High LAB HDL(LOINC) HDL Cholesterol 30 Low 39-96 mg/dL LAB LDL(LOINC) LDL, Calculated 82 0-99 mg/dL LAB TC-HD(LOINC) CHOL/HDL Ratio 4.4 0.0-5.0 LAB LDHDL(LOINC) LDL/HDL Ratio 2.7 0.0-3.6 mg/dL LAB VLDL(LOINC) VLDL Cholesterol 19 5-40 mg/ dL Performed By: #### LIPID ### # [address] [address] COMPREHENSIVE METABOLIC PANEL Collected : 03/14/2025 12:06 PM Status: F Source: [facility] TYPE CODE TESTS RESULT OUT OF RANGE REFERENCE UNITS LAB NA(LOINC) Sodium 144 132-145 mmol/L LAB K(LOINC) Potassium 4.5 3.3-5.1 mmol/L LAB CLI(LOINC) Chloride 107 94-110 mmol/L LAB TCO2(LOINC) Total Co2 26 21-34 mmol/L LAB GLU(LOINC) Glucose 109 High 65-100 mg/dL LAB BUN(LOINC) BUN 21.9 3.2-26.9 mg/dL LAB CREAT(LOINC) Creatinine 1.40 High 0.50-1.17 mg/dL LAB CA(LOINC) Calcium 9.1 8.2-10.0 mg/dL LAB ALB(LOINC) Albumin 3.6 3.4-5.0 g/dL LAB TP(LOINC) Protein 7.1 6.1-8.2 g/dL LAB TBIL(LOINC) Total Bilirubin 0.74 0.00-0.99 mg/dL LAB ALP(LOINC) Alkaline Phosphatase 200 High 54-112 U/L LAB ALT(LOINC) ALT (SGPT) 29 13-66 U/L LAB AST(LOINC) AST (SGOT) 16 3-39 U/L LAB AGAP(LOINC) Anion Gap 15.5 8.0-16.0 mmol/L LAB B-C(LOINC) BUN/CREAT Ratio 16 6-20 LAB A-G(LOINC) A/G Ratio 1.0 Low 1.1-2.5 LAB GLOB(LOINC) Globulin 3.5 1.5-4.5 g/dL LAB EGFR4(LOINC) EGFR Other Races 53 Abnormal >60 LAB EGFR5(LOINC) EGFR >60 >60 Result Comment: Chronic Kidn ey Disease less than 60 mL/min/1.73 m2 Kidney Failure less than 15 mL/min/1.73 m2 Average estimated GFR by age: 50-59 years 93 mL/min/1.73 m2 Performed By: #### CMP #### [place] [address] CHEST PA/LAT Observed: 2024 2:58 PM Status: F Source: [facility] EXAMINATION: TWO XRAY VIEWS OF THE CHEST 2024 2:12 pm COMPARISON: 12/23/2023. HISTORY: ORDERING SYSTEM PROVIDED HISTORY: FALL FINDINGS: The lungs are without acute focal process. There is no effusion or pneumothorax. The cardiomediastinal silhouette is without acute process. The osseous structures are without acute process. IMPRESSION: No acute process. PROGRESS Observed: 12/12/2024 3:30 PM Status: COMPLETED Source: [facility] Neurology Follow Up Note [facility] Date of Service: 12/12/24 Service Type: Follow up, neurology Patient: Kasi Warren Date of : 1970 (54 y.o.) PCP: Vito Quijano, ASSESSMENT: Kasi Warren is a 54 y.o. man who presents for follow up of headaches, possible neuropathy. Patient reports various symptoms since December 2023 when he suffered small strokes in setting of sepsis/bacteremia. He has headaches, which are variably described as feeling like "squirrels running through my head", "feels like my nose is bleeding but it isn't," "head exploded", etc. It is constant. He has other features such as difficulty focusing, subjective memory loss, tinnitus, and moodchanges/irritability. His exam is fairly unremarkable, though limited by poor compliance. There are some functional features including giveway weakness and stuttering speech. As mentioned, he suffered a few tiny embolic strokes in December 2023 in the setting of sepsis/bacteremia. MRI at the time showed scattered small bi-hemispheric ischemic strokes. The burden of ischemia was very low. MIGDALIA was negative. He did have a DVT, so was put on Eliquis; he is still on it but does not know why. Stroke risk factors other than his prior sepsis include ADILSON, HLD, HTN, and obesity. Repeat MRI brain in January 2024 was unremarkable with no further sign of ischemic injury; the previous strokes are not easily identified, due to their small size. MRV was negative. Certainly the tiny strokes are not responsible for his headaches or any of his other symptoms. I would expect a full recovery from such minimal ischemic insult within a few months at most, usually much less in a younger individual. Would work on modifiable risk factors (ADILSON, HTN, obesity, etc) to avoid future strokes but since these were likely provoked by bacteremia his stroke risk is not massively elevated above normal. The headaches do not meet ICHD-3 criteria for migraine or any other primary headache disorder. Some somatic features of untreated mood disorder may contribute. I do have some concern that potentially there is some factitious component given his fluctuating descriptions, psychogenic exam features, etc. He has requested pain medications several times, which also raises some concern. I would absolutely not recommend that he be given opioids or other addictive medications. History of neuropathy for last couple of years. EMG reportedly showed severe bilateral sensorimotor polyneuropathy - I do not have the full report, just his prior neurologist's note. Full lab workup was unremarkable. A repeat EMG may be beneficial in the future but he wants to focus on his more pressing symptoms, like the headaches. Of note, he reports absence to any light touch or pinprick but relatively intact vibratory and proprioceptive skills, which suggests if there is a neuropathy it is predominantly small fiber. He attributes it to a T12 compression fracture which obviously is not the cause. We are making headway on his headache pain so once that is better dealt with we may work on repeating EMG and neuropathy workup. Gabapentin he feels is somewhat helpful. Topiramate wasn't helping. Memantine he initially called in and said it wasn't helpful so I switched him to venlafaxine in a recent phone encounter, but today he brought in his meds and says that he is still taking memantine and it is definitely helpful with decrease in headache pain down to average 5/10 now and some days with only light headaches. He did take an extra dose once for bad headache and it helped more. This shouldn't really work as a rescue medication, so may have been more of a placebo, but if he likes it I am happy to bump it to BID. I'm not sure if he ever took venlafaxine or not. I am going to add a low dose of nortriptyline nightly for sleep and mood as well as pain. For stroke prevention, he is still on anticoagulation for unclear reasons. He is also on aspirin. He does not need both for stroke prevention, one will suffice. If he ever goes off the Eliquis, just maintain on ASA 81 for monotherapy, plus his statin. Problems addressed in this visit: 1. Chronic intractable headache, unspecified headache type 2. Rib pain PLAN: Medication changes: continue gabapentin 300mg TID. Increase memantine to 10mg BID. Add nortriptyline 10mg nightly PRN. Labs: none Imaging: none Other: none Follow Up: 3 months Attestation: Discussed risks, benefits and alternatives regarding treatment options, and diagnoses with Mr Warren and his . Answered questions and we discussed plan at length. I independently reviewed past history, previous clinic notes, lab results, allergies, medications and radiology images which are summarized in this note with annotations wherever appropriate. Time statement: A total of 43 minutes were spent on this encounter. This includes the following patient-centered activities: 1. Preparation for patient's visit (reviewing previous chart, current medical records, previous history, exam, test, procedure, and medications) 2. Face to face encounter obtaining history from the patient/family/caregivers; performing evaluation and examination; ordering medications, tests, or procedures; referring and communicating with other healthcare professionals; counseling and education of the patient/family/caregiver; independently interpreting results (tests, labs, procedures, imaging) and communicating and explaining results to the patient/family/caregiver 3. Coordination of care; preparing and printing discharge instruction and any educational material for the patient and caregivers. Documenting clinical information in the electronic and other health records. Reviewing OARRS as needed. Salvatore Georges MD Staff Neurologist [facility] [id number] [id number], [facility] [id number] [facility] 12/12/24 Subjective Chief Complaint/Reason for Consult: headaches Informant(s): self, Initial History of Present Illness 08/31/24: Kasi Warren is a 54 y.o. man who reports a pertinent history of stroke, DVT, ADILSON, HTN, HLD, COPD, CKD, who presents to the office today for headaches. Extremely poor historian ( is not that much better). Patient was admitted in December 2023 for AMS, was in septic shock, found to have group A streptococcal bacteremia along with acute respiratory failure, renal failure, and bilateral lower extremity cellulitis and DVT. MRI brain showed scattered small bihemispheric ischemic strokes, felt to be embolic related to sepsis, DVT. A MIGDALIA was unremarkable. He says that since then he has had a constant severe headache. It is variably described as feeling like "squirrels running through my head", "feels like my nose is bleeding but it isn't," "head exploded", "pressure", "stabbing everywhere", "pounding", "ringing", etc. Whole head seems to be involved sometimes radiating into the neck/shoulders. Tinnitus appears to be intermittent in both ears. Sensitive to light and sound. Memory feels poor. says he will forget everything, sometimes he thinks he is living in the past. She has to explain everything that has happened to him. Mood is very poor. He gets distracted easily. Has not been back to work since the stroke, says he was told not to drive although he doesn't know who told him this. He takes Tylenol, multiple per day, for the headaches, with no relief. He cannot tell me anything about what has been tried for it, and does not know any of his meds or what they are for. I see he is on topiramate, which is likely for headaches, though he does not know why or if it helped; doesn't think it did help. He does carry a diagnosis of dyslexia by his report and reports some chronic reading difficulty. Has chronic numbness in the feet since 2010 or so. Reportedly diagnosed with EMG [place] [address] Hall which showed neuropathy but we do not have access to the study. He says this is due to a T12 compression fracture. It does not appear to be progressing. He says he can't feel anything in his legs at all, though see exam below for true sensory exam. Interval history 12/12/24: At last visit I put him on memantine. About a month later, his sent me a message saying that he was still having a lot of headaches and memory issues so I switched him to venlafaxine. However, he brought his med kit in (arranged by his pharmacy) and it has memantine still and no venlafaxine, so I'm not sure what he's taking. However, he says that what he is taking is helpful. His headache intensity has decreased by about half and he feels less confused most of the time. One day he had a bad headache and took a second "headache medicine" that I prescribed - presumably memantine. This did eliminate the bad headache, though made him groggy. Sleep is very poor. Mood is still down, though a bit better than it was. He isn't doing much during most days. He does chores that his assigns him. Neuropathy the same, gets benefit from gabapentin. Review of Systems: All systems reviewed and negative except those documented in the History of Present Illness (HPI). Pertinent positives are documented below: + headaches + memory loss + numbness Medical/Surgical/Social/Family Histories: Pertinent Family Hx: no pertinent family hx Social situation: denies drug, alcohol, tobacco use He has a past medical history of Asthma, CKD (chronic kidney disease), COPD (chronic obstructive pulmonary disease) ([facility]), Gout, HLD (hyperlipidemia), HTN (hypertension), ADILSON (obstructive sleep apnea), and Stroke ([facility]) (12/23/2023). He has no past surgical history on file. He family history is not on file. He reports that he does not drink alcohol and does not use drugs. Allergies: Allergies: Patient has no known allergies. HOME Medications: Current Outpatient Medications Medication Instructions allopurinoL (ZYLOPRIM) 100 mg, Daily apixaban (ELIQUIS) 5 mg, Oral, 2 times daily ascorbic acid, vitamin C, (VITAMIN C) 500 MG tablet aspirin 81 mg, Daily atorvastatin (LIPITOR) 40 mg, Daily carvediloL (COREG) 12.5 mg, 2 times daily with meals gabapentin (NEURONTIN) 300 mg, Oral, 3 times daily lisinopriL (PRINIVIL,ZESTRIL) 5 mg, Oral, Daily with lunch memantine (NAMENDA) 10 mg, Oral, 2 times daily nortriptyline (PAMELOR) 10 mg, Oral, Nightly tamsulosin (FLOMAX) 0.4 mg, Daily Objective OBJECTIVE: Physical Examination: BP 135/85 (BP Location: Left arm, Patient Position: Sitting, BP Cuff Size: Adult) Pulse 72 Resp 16 Ht 5' 10" SpO2 94% BMI 41.38 kg/m GENERAL: General Appearance: In NAD HEENT: Normocephalic. No conjunctival injection. Ears appear normal. No substantial sinus drainage. See below for vision/hearing Neck: Supple, no focal bony tenderness, no mass lesions Respiratory Effort: Normal Extremities: No edema Skin: No rashes visualized MSK: No joint deformities Headache specific exam shows moderate diffuse scalp tenderness. no scalp mass. No focal areas of tenderness over the mastoid, greater or lesser occipital nerve exit points. No vascular thickening or other mass lesions noted over the temples. TMJ is nontender, and unrestricted. No sinus tenderness noted anywhere. No focal tenderness over the cervical paraspinal muscles, trapezius muscles, and scapular muscles. no myofascial trigger point tenderness elsewhere. Fundoscopic Exam: unable to adequately visualize fundus due to light sensitivity and poor participation in exam. The edges of the optic disc appeared to be clear so there is no major edema although the full area was not visualized. Neurologic Exam: MENTAL STATUS: Alertness, Attention Span & Concentration: awake. He had no eye contact during the duration of the visit. He is distractible. Loses train of thought. Does not participate well in formal exam, low effort on testing. Language: frequent pauses. Speech: some stuttering speech, which is distractible (when he talks about some topics the stuttering goes away) Orientation: Oriented to person, place, time/date, and situation CRANIAL NERVES: II - Visual Santacruz: Normal II, III: Pupils: PERRL, no RAPD III, IV, : Eye Movements: Normal (EOMI, No ptosis, No nystagmus) V - Facial Sensation: Normal VII: Face Symmetry & Strength: Normal VIII - Hearing: Normal to finger rub b/l IX, X - Palate: Normal, elevates symmetrically XI - Shoulder Shrug: Normal XII - Tongue Protrusion: Normal, symmetric MOTOR: Pain and/or effort limited,with giveway weakness basically throughout. There is some probably true chronic weakness in the right shoulder from old injury. No other obvious focal weakness. Tone is normal. SENSATION: Fine Touch: reportedly absent below knees Pinprick: absent below knees Proprioception: Normal Vibration: basically normal in lower extremities; in upper extremities he reports feeling it persist long after it actually has stopped Temperature: Normal REFLEXES: Right Reflexes Left 2+ Biceps 2+ 2+ Triceps 2+ 2+ Brachioradialis 2+ 1+ Patellar 1+ 1+ Achilles 1+ Down Plantar Response (Babinski) Down REFLEXES LANDEROS: 4+ Sustained Clonus 3+ Brisk 2+ Normal 1+ Diminished 0 Absent AMY Unable to Assess COORDINATION: Coordination Euvhdz-os-Anlq: Normal STANCE AND GAIT: Slow, cautious gait, uses cane or walker to stabilize. Wide based. MOVEMENT DISORDERS EXAMINATION: Tremor - no tremors noted Bradykinesia - None Rigidity - None Dyskinesia/Choreoathetosis - None Dystonia/Myoclonus/Tics - None PRIOR TESTING: Imagin12/23/23 CT head: No acute intracranial process. Probably an old lacunar infarct in the right globus pallidus. Small air-fluid levels in the maxillary sinuses. 12/23/23 Ultrasound duplex venous legs bilateral: No evidence of deep or superficial vein thrombosis in the right lower extremity. Acute deep vein thrombosis in the posterior tibial and one of the paired peroneal veins of the left lower extremity. 12/24/23 MR brain: There are multiple small foci of diffusion restriction throughout the white matter of the cerebral hemispheres mostly in the frontal lobes and left temporal lobe consistent with small acute to subacute embolic infarcts. No hydrocephalus. No mass effect. No evidence of hemorrhage. No masses. 12/26/23 Ultrasound doppler carotid: Normal duplex examination of the right and left internal carotid arteries. Right and left vertebral arteries are patent with antegrade flow. 12/26/23 MIGDALIA: Normal left ventricular size and systolic function. Normal right ventricular size and systolic function. No significant valvular abnormality. No vegetation or evidence of valvular endocarditis visualized. No mass or thrombus visualized in the right atrium, left atrium or left atrial appendage. Catheter visualized within the right atrium. No thrombus/vegetation visualized attached to the PICC line catheter. Intact interatrial septum by color Doppler and agitated saline. There is no pericardial effusion. 12/27/23 CT head: Mild age-appropriate volume loss. Mild patchy low-density white matter disease, likely small vessel ischemic changes. No mass, bleed or any obvious large vessel infarct. Partial opacification of the paranasal sinuses the mastoid air cells likely related to intubated status. 12/29/23 Ultrasound duplex venous legs bilateral: No evidence of deep or superficial vein thrombosis in the right lower extremity. No change in acute deep vein thrombosis in the posterior tibial veins of the left lower extremity. Complete resolution of thrombus in the left peroneal veins. 02/04/24 MRI brain w/o: No acute intracranial infarct. Mild to moderate burden of T2/FLAIR hyperintense foci within the periventricular white matter. Stable. No clear sign of prior infarcts. 02/04/24 MRI C-spine w and wo: no cord signal abnormality or enhancement. Mild degenerative changes with disc osteophyte complex at C4-5 causing mild spinal stenosis and mild left foraminal stenosis. Similar at C5-6 and C6-7, both of which have mild spinal stenosis, moderate right and mild left foraminal stenosis. 02/04/24 MRI T-spine w/ and w/o: no enhancement or cord signal abnormality. Mild degenerative changes. There are 13 thoracic vertebrae with a mild chronic compression fracture at T13. 02/04/24 MRI L-spine w/ and w/o: no enhancement or cord signal abnormality. Mild degenerative changes without significant foraminal or central stenosis. 05/07/24 CT head: No acute intracranial findings. Stable mild atrophy and white matter disease changes. EMG BLE 04/13/[address] Hall reportedly showed severe sensorimotor neuropathy but we don't have the full report Labs: CBC with anemia, Hgb 12.4 on last check. CK 26, aldolase 2.8 (both low normal). BMP WNL. A1c 5.5. Previous workup including B12, folate, MMA, HIV, LOYD panel, ANCA, copper, negative. Immunofixation normal. SPEP with decreased gammaglobulins. HALLE borderline at 1:40 speckled. AUTHENTICATED [place], [place] 2024 07:42:54 LIPID PANEL Collected: 10/11/2024 1:30 PM Status: F Source: [facility] TYPE CODE TESTS RESULT OUT OF RANGE REFERENCE UNITS LAB CHOL(LOINC) Cholesterol 149 0-200 mg/dL LAB TRIG(LOINC) Triglycerides 105 0-149 mg/dL Result Comment: 150-199 Bord radha High 200-499 High >499 Very High LAB HDL(LOINC) HDL Cholesterol 27 Low 39-96 mg/dL LAB LDL(LOINC) LDL, Calculated 101 High 0-99 mg/dL LAB TC-HD(LOINC) CHOL/HDL Ratio 5.5 High 0.0-5.0 LAB LDHDL(LOINC) LDL/HDL Ratio 3.7 High 0.0-3.6 mg/dL LAB VLDL(LOINC) VLDL Cholesterol 21 5-40 mg/ dL Performed By: #### LIPID ### # [address] [address] COMPREHENSIVE METABOLIC PANEL Collected : 10/11/2024 1:30 PM Status: F Source: [facility] TYPE CODE TESTS RESULT OUT OF RANGE REFERENCE UNITS LAB NA(LOINC) Sodium 143 132-145 mmol/L LAB K(LOINC) Potassium 4.4 3.3-5.1 mmol/L LAB CLI(LOINC) Chloride 107 94-110 mmol/L LAB TCO2(LOINC) Total Co2 24 21-34 mmol/L LAB GLU(LOINC) Glucose 116 High 65-100 mg/dL LAB BUN(LOINC) BUN 26.7 3.2-26.9 mg/dL LAB CREAT(LOINC) Creatinine 1.50 High 0.50-1.17 mg/dL LAB CA(LOINC) Calcium 8.8 8.2-10.0 mg/dL LAB ALB(LOINC) Albumin 3.9 3.4-5.0 g/dL LAB TP(LOINC) Protein 7.3 6.1-8.2 g/dL LAB TBIL(LOINC) Total Bilirubin 1.00 High 0.00-0.99 mg/dL LAB ALP(LOINC) Alkaline Phosphatase 212 High 54-112 U/L LAB ALT(LOINC) ALT (SGPT) 19 13-66 U/L LAB AST(LOINC) AST (SGOT) 24 3-39 U/L LAB AGAP(LOINC) Anion Gap 16.4 High 8.0-16.0 mmol/L LAB B-C(LOINC) BUN/CREAT Ratio 18 6-20 LAB A-G([facility]) A/G Ratio 1.1 1.1-2.5 LAB GLOB(LOINC) Globulin 3.4 1.5-4.5 g/dL LAB EGFR4(LOINC) EGFR Other Races 49 Abnormal >60 LAB EGFR5([facility]) EGFR 59 Abnormal >60 Result Comment: Chronic Kidn ey Disease less than 60 mL/min/1.73 m2 Kidney Failure less than 15 mL/min/1.73 m2 Average estimated GFR by age: 50-59 years 93 mL/min/1.73 m2 Performed By: #### CMP #### [address] [address] CBC W/AUTO DIFFERENTIAL Collected: 10/11/2024 1:30 PM Status: F Source: [facility] TYPE CODE TESTS RESULT OUT OF RANGE REFERENCE UNITS LAB WBCS(LOINC) WBC 10.2 3.6-10.8 K/uL LAB RBC(LOINC) RBC 5.66 4.13-5.69 M/uL LAB HGB(LOINC) HGB 16.2 12.4-17.3 g/dL LAB HCT(LOINC) HCT 48.9 36.7-50.6 % LAB MCV(LOINC) MCV 86.4 80.0-94.0 fL LAB MCH(LOINC) MCH 28.6 27.0-31.0 pg LAB MCHC(LOINC) MCHC 33.1 33.0-37.0 g/dL LAB RDW(LOINC) RDW 13.8 11.5-14.5 % LAB PLTI(LOINC) Platelet Count 193 148-402 K/uL LAB MPV(LOINC) MPV 10.6 High 7.4-10.4 fL LAB ASEGR(LOINC) Neutrophils Abs. # 8.48 High 2.20-4.80 K/uL LAB ALYMR(LOINC) Lymphocytes Abs. # 1.00 Low 1.30-2.90 K/uL LAB AMONR(LOINC) Monocytes Abs. # 0.60 0.30-0.80 K/uL LAB ABASR(LOINC) Basophils Abs. # 0.04 0.00-0.10 K/uL LAB AEOSR(LOINC) Eosinophils Abs. # 0.10 0.00-0.20 K/uL LAB AIMGR(LOINC) Imm Grans Absolute # 0.01 0.00-0.10 K/uL LAB SEGR(LOINC) Neutrophils % 83.3 High 43.0-65.0 % LAB LYMPR(LOINC) Lymphocytes % 9.6 Low 17.0-45.5 % LAB MONOR(LOINC) Monocytes % 5.7 5.5-11.7 % LAB BASOR(LOINC) Basophils % 0.4 0.2-1.0 % LAB EOSR(LOINC) Eosinophils % 0.9 0.9-2.9 % LAB IMGR(LOINC) Imm Grans % 0.10 0.00-1.00 % Performed By: #### CBCS #### [address] [address] MR BRAIN WITHOUT CONTRAST AND MRV BRAIN WITHOUT CONTRAST Observed: 10/04/2024 12:12 PM Status: F Source: [facility] Order Comment: Injury/Trauma or Illness?:Illness/Other How long have you had these symptoms (acute/chronic)?:Unknown Reason for exam?:headaches after embolic event, r/o venous sinus thrombus, Chronic intractable headache, unspecified headache type Type of Exam?:Subsequent/Follow-up abnormal ct br Additional signs and symptoms?:n EXAMINATION: MR BRAIN WITHOUT CONTRAST AND MRV BRAIN WITHOUT CONTRAST HISTORY: headaches after embolic event, r/o venous sinus thrombus Injury/Trauma or Illness?:Illness/Other How long have you had these symptoms (acute/chronic)?:Unknown Reason for exam?:headaches after embolic event, r/o venous sinus thrombus, Chronic intractable headache, unspecified headache type Type of Exam?:Subsequent/Follow-up R51.9 Chronic intractable headache, unspecified headache type COMPARISON: CT head without contrast dated 05/07/2024. MR brain without contrast 12/24/2023. TECHNIQUE: MR images of the brain were acquired without intravenous contrast. MRV performed without contrast. FINDINGS: There are scattered foci of bilateral cerebral white matter T2/FLAIR signal hyperintensity corresponding to regions of previously demonstrated infarct. A few foci of FLAIR hyperintensity are additionally noted at the cerebellar hemispheres. No diffusion restriction on today's study to suggest acute infarct. Basal cisterns are patent. No extra-axial fluid collection. No intracranial hemorrhage. No abnormal intracranial susceptibility identified. No hemosiderin staining. Ventricles and sulci are within the limits. Sellar contents appear normal. No cerebellar tonsil inferior ectopia. Major intracranial flow voids are maintained. Orbits are within normal limits. Mild ethmoid air cell and bilateral maxillary sinus mucosal thickening appears nonobstructive. Incidental left kendra bullosa anatomic variant with rightward deviation of the nasal septum. Mastoid air cells are clear. No destructive calvarial lesion. Visualized soft tissues of the face and scalp appear normal. MRV: There is normal flow related enhancement within the superior sagittal sinus, inferior sagittal sinus, bilateral transverse sinuses, bilateral sigmoid sinuses, and bilateral jugular bulbs. There is also normal flow related enhancement at the bilateral cortical veins, straight sinus, vein of Beto and deep cerebral veins. No dural venous sinus thrombosis is identified. IMPRESSION: 1. No acute intracranial abnormality. 2. Scattered foci of chronic ischemic changes throughout the bilateral cerebral white matter. 3. No evidence of deep vein thrombosis. Workstation ID: [id number] Dictated by: LINCOLN MCGRATH on TueOct 04, 2024 6:38:10 PM EST Transcribed by: LINCOLN MCGRATH on TueOct 04, 2024 6:38:10 PM EST Finalized by: LINCOLN MCGRATH on Mavis Oct 04, 2024 6:38:10 PM EST MR MRI BRAIN W/O CONTRAST Observed: 02/2025 2:03 PM Status: F Source: [place] [id number] Patient: KASI WARREN Phone#: : [phone] Age: 53 Gender: M Pt. Type: ER Account: [id number] Location: 052 Ordering: JUDAH DAWSON Exam Date: 09/17/2024/13:42 Family Phys: Charge Code: [id number] Physician: Shannon Order #: [id number] Dose#: PROCEDURE: MRI BRAIN WITHOUT CONTRAST COMPARISON: [facility], CT, BRAIN W/O CON, 06/24/2024, 14:42. [facility], CT, BRAIN W/O CON, 09/17/2024, 12:51. INDICATIONS: Headache TECHNIQUE: A variety of imaging planes and parameters were utilized for visualization of suspected pathology. Images were performed without contrast. FINDINGS: CEREBRUM: There are a few foci of T2 and FLAIR signal hyperintensities in the deep cerebral white matter predominantly in the frontal lobes. There are 6 the on the right and 3 on the left. A field service representative lesion measures 0.7 cm. There small dilated perivascular spaces in the basal ganglia. No restricted diffusion. No sandy on hemo sequence. No edema, hemorrhage, mass, acute infarction, or inappropriate atrophy. CEREBELLUM: No edema, hemorrhage, mass, acute infarction, or inappropriate atrophy. BRAINSTEM: No edema, hemorrhage, mass, acute infarction, or inappropriate atrophy. CSF SPACES: Ventricles, cisterns, and sulci are appropriate for age. No hydrocephalus, subarachnoid hemorrhage, or mass. SKULL: No mass or other significant visible lesion. SINUSES: Mucosal thickening in the maxillary sinuses. ORBITS: Limited views are unremarkable. OTHER: Negative. CONCLUSION: 1. No acute intracranial abnormality. 2. Multifocal bilateral signal abnormalities. In a patient this age group the differential includes small vessel ischemic disease, postinfectious, postinflammatory or demyelinating etiologies. Dictated by: Linda Worthy MD on 09/17/2024 at 14:06 Approved by: Linda Worthy MD on 09/17/2024 at 14:20 CT BRAIN W/O CONTRAST Observed: 09/17/19 25 1:00 PM Status: F Source: [place] [id number] Patient: KASI WARREN Phone#: : 1970 Age: 53 Gender: M Pt. Type: ER Account: [id number] Location: 052 Ordering: JUDAH DAWSON Exam Date: 09/17/2024/12:51 Family Phys: Charge Code: 710003 Physician: Shannon Order #: [id number] Dose#: [id number] mGy PROCEDURE: CT BRAIN WITHOUT CONTRAST COMPARISON: [facility], CT, BRAIN W/O CON, 06/24/2024, 14:42. INDICATIONS: Headache. TECHNIQUE: CT images were obtained without contrast material. All CT scans at this facility use dose modulation, iterative reconstruction, and/or weight based dosing when appropriate to reduce radiation dose to as low as reasonably achievable. IV CONTRAST: No IV contrast used,0ml TOTAL DOSE: 52.3 CTDIvol(mGy) FINDINGS: CEREBRUM: No edema, hemorrhage, mass, acute infarction, or inappropriate atrophy. CEREBELLUM: No edema, hemorrhage, mass, acute infarction, or inappropriate atrophy. BRAINSTEM: No edema, hemorrhage, mass, acute infarction, or inappropriate atrophy. CSF SPACES: Ventricles, cisterns, and sulci are appropriate for age. No hydrocephalus, subarachnoid hemorrhage, or mass. SKULL: No mass or other significant visible lesion. SINUSES: Limited views demonstrate no significant mucosal thickening or fluid. ORBITS: Limited views are unremarkable. OTHER: Negative. CONCLUSION: 1. There is no evidence of acute intracranial abnormality. Dictated by: Geena Hughes MD on 09/17/2024 at 13:11 Approved by: Geena Hughes MD on 09/17/2024 at 13:12 CBC + DIFF Collected: 5 11:21 AM Status: F Source: [facility] TYPE CODE TESTS RESULT OUT OF RANGE REFERENCE UNITS LAB CBC + DIFF(LOINC) CBC + DIFF Result Comment: CBC-COMPLETE BLOOD COUNT LAB WBC(LOINC) WBC 10.4 4.5 - 10.8 x 10EE3/UL LAB RBC(LOINC) RBC 4.99 4.50 - 6.00 x 10EE6/UL LAB HEMOGLOBIN([facility]) HEMOGLOBIN 14.9 13.0 - 17.5 g/dl LAB HEMATOCRIT([facility]) HEMATOCRIT 43.2 40.0 - 52.0 % LAB MCV(LOINC) MCV 87 81 - 98 fl LAB MCH(LOINC) MCH 30 27 - 33 pg LAB MCHC(LOINC) MCHC 35 32 - 36 X10 3 LAB RDW/CV(LOINC) RDW/CV 14.6 12.0 - 15.6 % LAB PLATELET(LOINC ) PLATELET 167 150 - 450 x10EE3/UL LAB MPV(LOINC) MPV 8.2 6.4 - 10.5 fl Result Comment: AUTOMATED DI FFERENTIAL LAB NEUT %(LOINC) NEUT % 60.9 46.0 - 76.0 % LAB LYMPH %(LOINC) LYMPH % 29.7 20.0 - 45.0 % LAB MONOS %(LOINC) MONOS % 7.0 0.0 - 10.0 % LAB EO %(LOINC) EO % 1.8 0.0 - 7.0 % LAB BASO %(LOINC) BASO % 0.6 0.0 - 2.0 % LAB Lymph #(LOINC) Lymph # 3.08 High 0.80 - 2.80 x10EE 3/UL LAB Neut #(LOINC) Neut # 6.31 1.50 - 7.10 x10EE3 /UL LAB [place] #(LOINC) [place] # 0.72 0.20 - 1.00 x10EE3 /UL LAB EO #(LOINC) EO # 0.19 0.00 - 0.50 x10EE3/U L LAB Baso #(LOINC) Baso # 0.06 0.00 - 0.10 x10EE3 /UL LAB MANUAL DIFF(LOINC) MANUAL DIFF N/A LAB MORPHOLOGY([facility] NC) MORPHOLOGY N/A Performed By: #### [id number] ## ## [facility],[address] [place] [address] WITH EGFR Collected: 11:21 AM Status: F Source: [facility] TYPE CODE TESTS RESULT OUT OF RANGE REFERENCE UNITS LAB CMP with eGFR(LOINC) CMP with eGFR Result Comment: COMPREHENSIV E METABOLIC PANEL LAB SODIUM(LOINC) SODIUM 144 136 - 145 mmol/l LAB POTASSIUM(LOIN C) POTASSIUM 4.0 3.5 - 5.1 mmol/L LAB CHLORIDE(LOINC ) CHLORIDE 107 98 - 107 mmol/L LAB CO2(LOINC) CO2 28.8 21.0 - 32.0 mmol/L LAB GLUCOSE(LOINC) GLUCOSE 111 High 74 - 106 mg/dl LAB BUN(LOINC) BUN 24 High 7 - 18 mg/dl LAB CREATININE([facility]TE NC) CREATININE 1.53 High 0.70 - 1.30 mg/dl LAB AST/SGOT(LOINC ) AST/SGOT 20 15 - 37 U/L LAB ALK PHOS(LOINC) ALK PHOS 187 High 46 - 116 U/L LAB CALCIUM(LOINC) CALCIUM 8.9 8.5 - 10.1 mg/dl LAB TOTAL PROTEIN(LOINC) TOTAL PROTEIN 7.2 6.4 - 8.2 g/dl LAB ALBUMIN(LOINC) ALBUMIN 3.7 3.4 - 5.0 g/dL LAB GLOBULIN(LOINC ) GLOBULIN 3.5 1.5 - 3.8 G/DL LAB A/G RATIO(LOINC) A/G RATIO 1.1 0.9 - 1.6 LAB TOTAL BILI(LOINC) TOTAL BILI 0.3 0.2 - 1.0 mg/dl LAB B/C RATIO(LOINC) B/C RATIO 16 0 - 30 ratio LAB ALT/SGPT(LOINC ) ALT/SGPT 31 16 - 63 U/L LAB ANION GAP(LOINC) ANION GAP 12 10 - 20 mmol/L LAB AGE(LOINC) AGE 53 years LAB eGFR(LOINC) eGFR 48 Low 60 - 999 ML/MINUT E LAB eGFR(AA)(LOINC ) eGFR(AA) 58 Low 60 - 999 ML/MINUT E Result Comment: ACCORDING TO THE NATIONAL KIDNEY DISEASE EDUCATION PROGRAM(NKDE), A NORMAL eGFR IS A VALUE GREATER THAN OR EQUAL TO 60 ML/MIN/1.73 SQ METERS. CHRONIC KIDNEY DISEASE: <60mL/MIN/1.73 SQ METERS KIDNEY FAILURE: <15mL/MIN/1.73 SQ METERS THIS TEST SHOULD ONLY BE USED FOR PATIENTS 18 YEARS OF AGE AND OLDER. Performed By: #### [id number] ## ## [facility],[address] [place] [id number] ED MED ADMINISTRATION DETAIL Observed: 0 09/17/2024 11:09 AM Status: F Source: [facility] Biological Lab Technician Medication Administration Record [address] [place] [id number] 09/17/2024 Patient: KASI WARREN Sex: Male : 1970 Age: 53y MEASUREMENTS: Wt: 132.9 kg, Ht/Conrado: 70.0 in, BMI: 42.04 ALLERGIES: No known drug allergies Medication Ordered Medication Administration Date/Time IV NS 0.9 % 1000 14:16 09/17 IV NS 0.9 % 1000 mL started in bag#1 1000 mL at Started mL at 999 mL/hr 999 mL/hr via Site# 1. Allergies verified and confirmed 5 rights. Via 14:16 09/17/2024 (NOW x1) IV pump. IV patency established. IV site checked: no pain, redness, Katiana Knutson R.N. or swelling. IV flushed thoroughly pre-medication administration. Stopped Information reviewed with patient including reason for taking this 15:00 09/17/2024 medication, signs of allergic reaction and precautions. Verbalizes Katiana Knutson R.N. understanding. - 14:16 Katiana Knutson R.N. Scanned 15:00 09/17 Medication Discontinued: bag #1 infused. Total amount infused: 1000 mL. IV patency established. IV site checked: no pain, redness, or swelling. IV flushed thoroughly post-medication administration. - 16:28 Katiana Knutson R.N. KetorOLAC 14:17 09/17 KetorOLAC (Toradol) IVP 15 mg given via Site# 1. Given (Toradol) IVP 15 mg Allergies verified and confirmed 5 rights. IV patency established. IV 14:17 09/17/2024 (NOW x1) site checked: no pain, redness, or swelling. IV flushed thoroughly Katiana Knutson R.N. pre-medication administration. Information reviewed with patient Scanned including reason for taking this medication, signs of allergic reaction and precautions. Verbalizes understanding. Medication Wastage: 15 mg wasted. - 14:18 Katiana Knutson R.N. 1 of 2 Biological Lab Technician Medication Ordered Medication Administration Date/Time Zofran IVP 4 mg 14:18 09/17 Zofran IVP 4 mg given via Site# 1. Allergies verified Given (NOW x1) and confirmed 5 rights. IV patency established. IV site checked: no 14:18 09/17/2024 pain, redness, or swelling. IV flushed thoroughly pre-medication Katiana Knutson R.N. administration. Information reviewed with patient including reason Scanned for taking this medication, signs of allergic reaction and precautions. Verbalizes understanding. - 14:18 Katiana Knutson R.N. KetorOLAC 15:42 09/17 KetorOLAC (Toradol) IVP 15 mg given via Site# 1. Given (Toradol) IVP 15 mg Allergies verified and confirmed 5 rights. IV patency established. IV 15:42 09/17/2024 (NOW x1) site checked: no pain, redness, or swelling. IV flushed thoroughly Katiana Knutson R.N. pre-medication administration. Information reviewed with patient Scanned including reason for taking this medication, signs of allergic reaction and precautions. Verbalizes understanding. Medication Wastage: 15 mg wasted. - 15:42 Katiana Knutson R.N. MORPHine IVP 4 15:43 09/17 MORPHine IVP 4 mg given via Site# 1. Allergies Given mg (NOW x1, HIGH verified and confirmed 5 rights. IV patency established. IV site 15:43 09/17/2024 ALERT checked: no pain, redness, or swelling. IV flushed thoroughly Katiana Knutson R.N. MEDICATION) pre-medication administration. Information reviewed with patient Scanned including reason for taking this medication, signs of allergic reaction and precautions. Verbalizes understanding. - 15:43 Katiana Knutson R.N. 15:52 09/17 Medication Response: Pain is improving. - 15:52 Katiana Knutson R.N. 2 of 2 ED VISIT SUMMARY Observed: 09/17/2024 11:09 AM Status: F Source: [facility] Visit Overview Visit Overview [address] 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 Tylenol 1300mg at 0835, aspirin 324mg at 0825) ALLERGIES No Known Drug Allergies 1 of 4 Visit Overview HOME MEDICATIONS allopurinoL 100 mg tablet: 100 mg once a day . ascorbic acid (vitamin C) 500 mg tablet: 500 mg once a day . aspirin 81 mg capsule: 81 mg once a day . atorvastatin 40 mg tablet: 40 mg once a day . carvediloL 25 mg tablet: 12.5 mg twice a day . cyclobenzaprine 5 mg tablet: 5 mg three times a day . Eliquis 5 mg tablet: 5 mg twice a day . gabapentin 300 mg capsule: 300 mg three times a day . lisinopriL 20 mg tablet: 20 mg once a day . memantine 10 mg tablet: 1 tablet once a day. tamsulosin 0.4 mg capsule: 0.4 mg once a day . PAST MEDICAL HISTORY / PROBLEMS CVA - Cerebrovascular Accident DVT - Deep Venous Thrombosis Gout Hypercholesterolemia Hypertension: Active Migraine with aura: Active Neuropathy: Active See nurses notes PAST SURGICAL HISTORY Hemorrhoidectomy Previous Abdominal Surgery Right Patella SOCIAL HISTORY Smoking status: No Alcohol use: No Drug use: No ED COURSE 2 of 4 Visit Overview MEDICATIONS GIVEN IN EMERGENCY DEPARTMENT 14:16 09/17/24 IV NS 0.9 % 1000 mL 999 mL/hr 14:17 09/17/24 KetorOLAC (Toradol) IVP 15 mg 14:18 09/17/24 Zofran IVP 4 mg 15:42 09/17/24 KetorOLAC (Toradol) IVP 15 mg 15:43 09/17/24 MORPHine IVP 4 mg IV SITE INFORMATION INTAKE OUTPUT REASSESMENT (most recent) 11:54 09/17/24. GENERAL / NEURO / PSYCH: Alert. Oriented X 4. Appears in no acute distress. Speech within normal limits. HEENT: Pupils equal, round and reactive to light. ( Left eye pressure/pain). RESPIRATORY: Respirations not labored. Breath sounds within normal limits. CVS: Capillary refill less than 2 seconds. GI / : Abdomen soft and nontender. EXTREMITIES: The patient has numbness of the right arm. SKIN: Skin is warm and dry. VITAL SIGNS First Vitals Last Vitals Temp 11:17 09/17/24 98.4 F Temp 16:06 09/17/24 BP 11:17 09/17/24 157/102 BP 16:06 09/17/24 HR 11:17 09/17/24 80 HR 16:06 09/17/24 65 RR 11:17 09/17/24 14 RR 16:06 09/17/24 O2 Sat 11:17 09/17/24 95% RA O2 Sat 16:06 09/17/24 97% Pain 11:17 09/17/24 7 Pain 16:06 09/17/24 ETCO2 11:17 09/17/24 ETCO2 16:06 09/17/24 GCS 11:17 09/17/24 GCS 16:06 09/17/24 RTS 11:17 09/17/24 RTS 16:06 09/17/24 PROCEDURES NURSING INTERVENTIONS LABS / STUDIES LABS / STUDIES ORDERED 3 of 4 Visit Overview CBC w Diff CMP CT Brain wo Cont EKG - ED Glucose Bedside MRI Brain wo Cont CLINICAL IMPRESSION ACUTE HEADACHE. NO TREATMENT RESISTANT HEADACHE OR POST TRAUMATIC HEADACHE POSSIBLE ACUTE MIGRAINE HEADACHE 4 of 4 ED PHYSICIAN DISCHARGE REPORT Observed: 09/17/2024 11:09 AM Status: F Source: [facility] Discharge Instructions Discharge Summary [facility] [address] [place] [address] [id number] 09/17/2024 Patient: KASI WARREN Sex: Male : 1970 Age: 53y Thank you for visiting [facility]. You have been evaluated today by Judah Dawson M.D. for the following condition(s): Principal Diagnosis Acute headache. No treatment resistant headache or post traumatic headache. INSTRUCTIONS No strenuous activity for one days. Rest today. Follow-up: Follow up with your doctor in about two days. [facility] Medical Services Assistant Date/Time General Instructions with ExitWriter [address] [address] [phone] 1 of 2 Discharge Instructions 09/17/2024 Patient: KASI WARREN Sex: Male : 1970 Age: 53y Thank you for visiting [facility]. You have been evaluated today by Judah Dawson M.D. for the following condition(s): Principal Diagnosis Acute headache. No treatment resistant headache or post traumatic headache. INSTRUCTIONS No strenuous activity for one days. Rest today. Follow-up: Follow up with your doctor in about two days. Activities Restrictions [address] [address] [phone] 09/17/2024 Patient: KASI WARREN Sex: Male : 1970 Age: 53y You have been given the following instructions regarding activity, work, and/or school. No strenuous activity for one days. Rest today. Facility Medical Services Assistant 2 of 2 ED NURSES CLINICAL NOTE Observed: 2024 11:09 AM Status: F Source: [facility] Nurse Narrative Nurse Clinical Narrative [address] [address] [phone] 09/17/2024 Patient: KASI WARREN Sex: Male : 1970 Age: 53y Disposition: Discharge to Home Disposition Decision Time: 15:08 09/17/2024 Departure Time: 16:12 09/17/2024 TRIAGE Arrived by private vehicle. 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 Accompanied by family. Primary physician (Dr. Quijano). Primary care physician not notified of patient's arrival. Triage time: 11:10 09/17/2024. Acuity: LEVEL 2. Chief Complaint: HEADACHE and BLURRED VISION and NUMBNESS. This started today. Patient was last known well (07:30 09/17/2024). ( Patient was shoveling snow around 0530, symptoms began around 0730 including headache, left eye pressure, and right arm numbness. Tylenol 1300mg at 0835, aspirin 324mg at 0825). The patient has had numbness of the right arm. No nausea or vomiting. Patient is on anticoagulation (blood thinner) therapy: includes eliquis. SEPSIS SCREEN: NEGATIVE. SIRS criteria negative. -- 11:44 09/17/24 CHIKI Knutson R.N. 11:17 09/17/24. BP: 157/102 MAP: 120. HR: 80. RR: 14. O2 saturation: 95% on room air. Temperature: 98.4 F (oral). Pain level now 7/10. Describes the pain as aching. (headache). -- 11:43 09/17/24 CHIKI Knutson R.N. Measurements: 11:16 09/17/24 Wt: 132.9 kg, Ht/Conrado: 70.0 in, BMI: 42.04 -- 11:41 09/17/24 CHIKI Knutson R.N. Medications: memantine 10 mg tablet: 1 tablet once a day. -- 11:48 09/17/24 CHIKI Knutson R.N. 1 of 5 Nurse Narrative allopurinoL 100 mg tablet: 100 mg once a day . -- 11:48 09/17/24 CHIKI Knutson R.N. aspirin 81 mg capsule: 81 mg once a day . -- 11:48 09/17/24 CHIKI Knutson R.N. atorvastatin 40 mg tablet: 40 mg once a day . -- 11:48 09/17/24 CHIKI Knutson R.N. lisinopriL 20 mg tablet: 20 mg once a day . -- 11:48 09/17/24 CHIKI Knutson R.N. tamsulosin 0.4 mg capsule: 0.4 mg once a day . -- 11:48 09/17/24 CHIKI Knutson R.N. ascorbic acid (vitamin C) 500 mg tablet: 500 mg once a day . -- 11:48 09/17/24 EST Katiana Knutson R.N. carvediloL 25 mg tablet: 12.5 mg twice a day . -- 11:48 09/17/24 EST Katiana Knutson R.N. Eliquis 5 mg tablet: 5 mg twice a day . -- 11:48 09/17/24 EST Katiana Knutson R.N. gabapentin 300 mg capsule: 300 mg three times a day . -- 11:48 09/17/24 EST Katiana Knutson R.N. cyclobenzaprine 5 mg tablet: 5 mg three times a day . -- 11:48 09/17/24 EST Katiana Knutson R.N. Allergies: no known drug allergies -- 11:43 09/17/24 EST Katiana Knutson R.N. Problems: CVA - Cerebrovascular Accident -- 11:43 09/17/24 EST Katiana Knutson R.N. Hypertension: Active -- 11:43 09/17/24 CHIKI Knutson R.N. Migraine with aura: Active -- 11:43 09/17/24 EST Katiana Knutson R.N. Gout -- 11:43 09/17/24 EST Katiana Knutson R.N. Neuropathy: Active -- 11:43 09/17/24 EST Katiana Knutson R.N. DVT - Deep Venous Thrombosis -- 11:44 09/17/24 CHIKI Knutson R.N. Hypercholesterolemia -- 11:44 09/17/24 EST Katiana Knutson R.N. ADDITIONAL SURGERIES: Previous Abdominal Surgery -- 11:44 09/17/24 CHIKI Knutson R.N. Hemorrhoidectomy -- 11:44 09/17/24 CHIKI Knutson R.N. Right Patella -- 11:44 09/17/24 EST Katiana Knutson R.N. History 11:10 09/17/24. SOCIAL HX: Former smoker. No alcohol use or drug use. The patient has not traveled outside the [place] Infectious disease exposure: No infectious disease exposure. ABUSE ASSESSMENT: The patient answered "yes" to the question(s) "Do you feel safe in your home?" and "no" to the question(s) "Are you afraid to go home?". 2 of 5 Nurse Narrative SELF HARM ASSESSMENT: Self harm assessment was performed. The patient answered no to the question(s) "Have you recently felt down, depressed, or hopeless?" and "Do you have thoughts of harming or killing yourself?". FALL RISK ASSESSMENT: Fall risk assessment completed. No risk factors identified. -- 11:44 09/17/24 CHIKI Knutson R.N. Interventions 11:10 09/17/24. Advanced care plan discussed with patient. Patient does not have advanced directive. -- 11:44 09/17/24 CHIKI Knutson R.N. PHYSICAL ASSESSMENT 11:54 09/17/24. GENERAL / NEURO / PSYCH: Alert. Oriented X 4. Appears in no acute distress. Speech within normal limits. HEENT: Pupils equal, round and reactive to light. ( Left eye pressure/pain). RESPIRATORY: Respirations not labored. Breath sounds within normal limits. CVS: Capillary refill less than 2 seconds. GI / : Abdomen soft and nontender. EXTREMITIES: The patient has numbness of the right arm. SKIN: Skin is warm and dry. -- 11:57 09/17/24 CHIKI Knutson R.N. 11:54 09/17/24. Pain level now 7/10. (Headache). -- 11:55 09/17/24 CHIKI Knutson R.N. NURSING PROGRESS NOTES 11:14 09/17/24. ED physician at the patient's bedside (11:14 09/17/2024). -- 11:54 09/17/24 CHIKI Knutson R.N. 11:22 09/17/24. 12-LEAD EKG: EKG time: (11:09/17/2024). 12-Lead EKG was ordered, performed by a nurse and shown to the ED physician. NSR. -- 11:49 09/17/24 CHIKI Knutson R.N. 11:25 09/17/24. Site #1 started via IV in the right hand with an 18g angiocath with aseptic technique and good blood return; 1 attempt. Blood drawn: rainbow set tube(s). Saline lock flushed with 5 mL saline. -- 11:29 09/17/24 CHIKI Gardner R.N. 11:50 09/17/24. Cardiac rhythm: normal sinus rhythm. -- 11:50 09/17/24 CHIKI Knutson R.N. 11:54 09/17/24. Mobile Ui/Ux Designer at bedside. -- 11:54 09/17/24 CHIKI Knutson R.N. 12:54 09/17/24. Patient walked to CT. -- 12:58 09/17/24 CHIKI Knutson R.N. 13:40 09/17/24. Patient transported to [facility]. -- 13:50 09/17/24 CHIKI Knutson R.N. 3 of 5 Nurse Narrative 14:16 09/17/24. IV NS 0.9 % 1000 mL started in bag#1 1000 mL at 999 mL/hr via Site# 1. Allergies verified and confirmed 5 rights. Via IV pump. IV patency established. IV site checked: no pain, redness, or swelling. IV flushed thoroughly pre-medication administration. Information reviewed with patient including reason for taking this medication, signs of allergic reaction and precautions. Verbalizes understanding. -- 14:16 09/17/24 CHIKI Knutson R.N. 14:17 09/17/24. KetorOLAC (Toradol) IVP 15 mg given via Site# 1. Allergies verified and confirmed 5 rights. IV patency established. IV site checked: no pain, redness, or swelling. IV flushed thoroughly pre-medication administration. Information reviewed with patient including reason for taking this medication, signs of allergic reaction and precautions. Verbalizes understanding. Medication Wastage: 15 mg wasted. -- 14:18 09/17/24 CHIKI Knutson R.N. 14:18 09/17/24. Zofran IVP 4 mg given via Site# 1. Allergies verified and confirmed 5 rights. IV patency established. IV site checked: no pain, redness, or swelling. IV flushed thoroughly pre-medication administration. Information reviewed with patient including reason for taking this medication, signs of allergic reaction and precautions. Verbalizes understanding. -- 14:18 09/17/24 CHIKI Knutson R.N. 15:26 09/17/24. Pain level now 4/10. (headache). -- 15:51 09/17/24 CHIKI Knutson R.N. 15:42 09/17/24. KetorOLAC (Toradol) IVP 15 mg given via Site# 1. Allergies verified and confirmed 5 rights. IV patency established. IV site checked: no pain, redness, or swelling. IV flushed thoroughly pre-medication administration. Information reviewed with patient including reason for taking this medication, signs of allergic reaction and precautions. Verbalizes understanding. Medication Wastage: 15 mg wasted. -- 15:42 09/17/24 CHIKI Knutson R.N. 15:43 09/17/24. MORPHine IVP 4 mg given via Site# 1. Allergies verified and confirmed 5 rights. IV patency established. IV site checked: no pain, redness, or swelling. IV flushed thoroughly pre-medication administration. Information reviewed with patient including reason for taking this medication, signs of allergic reaction and precautions. Verbalizes understanding. -- 15:43 09/17/24 CHIKI Knutson R.N. 15:51 09/17/24. Pain level now 2/10. -- 15:51 09/17/24 CHIKI Knutson R.N. 15:52 09/17/24. MORPHine IVP: Medication Response. Pain is improving. -- 15:52 09/17/24 CHIKI Knutson R.N. NIH STROKE SCALE: Performed at 11:30 09/17/2024. 11:30 09/17/24. Score 2. Level of Consciousness: alert (0). LOC Questions: both (0). LOC Commands: both (0). Best gaze: normal (0). Visual field loss: partial hemianopsia (1). Facial palsy: normal (0). Motor arm: no drift right arm (0) and no drift left arm (0). Motor leg: no drift right leg (0) and no drift left leg (0). Limb ataxia: none (0). Sensory loss: mild to moderate (1). Aphasia: none (0). Dysarthria: normal (0). Extinction and inattention: none (0). -- 12:14 09/17/24 CHIKI Knutson R.N. DISPOSITION / DISCHARGE 4 of 5 Nurse Narrative 15:00 09/17/24. IV NS 0.9 %: Medication Discontinued. bag #1 infused. Total amount infused: 1000 mL. IV patency established. IV site checked: no pain, redness, or swelling. IV flushed thoroughly post-medication administration. -- 16:28 09/17/24 CHIKI Knutson R.N. 15:45 09/17/24. BP: 133/92 MAP: 102 mmHg. HR: 60 bpm. -- 16:26 09/17/24 CHIKI Knutson R.N. 15:46 09/17/24. HR: 71 bpm. O2 saturation: 99%. -- 16:26 09/17/24 CHIKI Knutson R.N. 16:10 09/17/24. Site #1 removed upon discharge. Catheter intact. Bandage applied. -- 16:28 09/17/24 CHIKI Knutson R.N. Cardiac rhythm: normal sinus rhythm. Departure time: 16:12 09/17/2024. Condition at departure: stable. No learning barriers present. Discharge instructions provided and reviewed with the patient and spouse. Activity restrictions (rest) reviewed. Patient and spouse verbalized understanding. Written instructions provided in Palestinian. The patient was discharged home and accompanied by spouse. The patient left ambulatory and via private vehicle. Spouse driving. -- 16:27 09/17/24 CHIKI Knutson R.N. (Electronically signed by Katiana Knutson R.N. 09/17/24 16:29:17 EST) Generated by [facility] 5 of 5 ED ORDER SHEET (CPOE ONLY) Observed: 02/2025 11:09 AM Status: F Source: [facility] Order Sheet Order Sheet [place] [address] [place] [address] [phone] 09/17/2024 Patient: KASI WARREN Sex: Male : 1970 Age: 53y MEASUREMENTS: Wt: 132.9 kg, Ht/Conrado: 70.0 in, BMI: 42.04 ALLERGIES: No known drug allergies MEDICATION/IV/DRIP/FLUID ORDERS Order Description Priority Entered Acknowledged Completed IV NS 0.9 %1000 mL at 999 13:28 09/17/2024 13:43 14:16 mL/hr (NOW x1) Judah Dawson M.D. 09/17/2024 09/17/2024 Katiana Taveras, R.N. R.N. KetorOLAC (Toradol) IVP15 mg 13:28 09/17/2024 13:43 14:18 (NOW x1) Judah Dawson M.D. 09/17/2024 09/17/2024 Katiana Taveras, José.N. R.N. Reason for ordering with alerts: Benefits outweigh risks --13:28 09/17/2024 Judah Dawson M.D. Zofran IVP4 mg (NOW x1) 13:28 09/17/2024 13:43 14:18 Judah Dawson M.D. 09/17/2024 09/17/2024 Katiana Taveras, R.N. R.N. KetorOLAC (Toradol) IVP15 mg 15:03 09/17/2024 15:38 15:42 (NOW x1) Judah Dawson M.D. 09/17/2024 09/17/2024 Katiana Taveras, R.N. R.N. 1 of 3 Order Sheet Reason for ordering with alerts: Clinical consideration given --15:03 09/17/2024 Judah Dawson M.D. MORPHine IVP4 mg (NOW x1, 15:03 09/17/2024 15:38 15:43 HIGH ALERT MEDICATION) Judah Dawson M.D. 09/17/2024 09/17/2024 Katiana Taveras, José.N. R.NKrystle Reason for ordering with alerts: Clinical consideration given --15:03 09/17/2024 Judah Dawson M.D. LAB ORDERS Order Description Priority Entered Acknowledged Collected Completed CBC w Diff Stat Stat 12:46 09/17/2024 12:50 09/17/2024 12:50 09/17/2024 Kvng Peters Katelyn Horst, NiyaN. R.N. CMP Stat Stat 12:46 09/17/2024 12:50 09/17/2024 12:50 09/17/2024 Kvng Peters Katelyn Horst, R.N. R.N. Glucose Bedside Stat Stat 12:46 09/17/2024 12:50 09/17/2024 12:50 09/17/2024 Kvng Peters Katelyn Horst, José.N. R.N. EKG - ED Stat Stat 12:46 09/17/2024 12:50 09/17/2024 12:50 09/17/2024 Kvng Peters Katelyn Horst, José.N. R.NKrystle DIAGNOSTIC STUDY ORDERS Order Description Priority Entered Acknowledged Completed CT Brain wo Cont Stat Stat 12:46 09/17/2024 12:50 13:08 Judah Dawson M.D. 09/17/2024 09/17/2024 Katiana Taveras, José.N. R.NKrystle Reason for Study: Brain Attack MRI Brain wo Cont Stat Stat 13:25 09/17/2024 13:43 14:15 Judah Dawson M.D. 09/17/2024 09/17/2024 2 of 3 Order Sheet Katiana Taveras, José.N. R.N. Reason for Study: Stroke STAFF ORDERS Order Description Priority Entered Acknowledged Collected Completed IV Saline Lock 12:46 09/17/2024 12:50 09/17/2024 12:51 09/17/2024 Kvng Peters Katelyn Horst, R.N. R.N. HOB @ 30 degrees 12:46 09/17/2024 12:50 09/17/2024 12:50 09/17/2024 neck in neutral position Kvng Peters Katelyn Horst, R.N. R.N. Perform NIH stroke 12:46 09/17/2024 12:50 09/17/2024 12:51 09/17/2024 scale on admission Kvng Peters Katelyn Horst, R.N. RKrystleNKrystle perform NIH stroke 12:46 09/17/2024 12:50 09/17/2024 12:51 09/17/2024 scale if neuro changes Kvng Peters Katelyn Horst, R.N. RKrystleNKrystle [Electronically signed by Judah Dawson M.D. (09/17/2024 16:23 EST)] 3 of 3 ED PHYSICIAN CLINICAL REPORT Observed: 0 09/17/2024 11:09 AM Status: F Source: [facility] Narrative Physician Clinical Narrative [address] [place] [address] [phone] 09/17/2024 Patient: KASI WARREN Sex: Male : 1970 Age: 53y Disposition: Discharge to Home Disposition Decision Time: 15:08 09/17/2024 Measurements Wt: 132.9 kg, Ht/Conrado: 70.0 in, BMI: 42.04 Initial Vital Sign Measured Time BP MAP HR RR O2Sat ETCO2 Temp Pain GCS RTS 11:17 09/17/2024 157/102 120 80 14 95% RA 98.4 F 7 Time Seen: 11:11 09/17/2024. Arrived- By private vehicle. Historian- patient. Independent historian- friend. HISTORY OF PRESENT ILLNESS Chief Complaint: HEADACHE. also complains of tingling to his right arm that came on with a headache. He is able to move his arm without any noticeable weakness. Is still present. This started just prior to arrival while shoveling snow and patient was last known well (11:21 09/17/2024). It is described as similar to previous headaches, "pain" and pressure. Located in the frontal region and region of the left eye. (Patient had a "showers stroke "and earlier her this past year. Has been having headaches since then. This is similar to what he has had in the past.). Similar symptoms previously. (Since stroke has had a number of headaches and this is similar to what he has had in the past. However usually does not get associated arm tingling.). REVIEW OF SYSTEMS 1 of 10 Narrative CVS: No chest pain. THROAT: No sore throat. CONSTITUTIONAL: No fever or muscle aches. RESPIRATORY: No difficulty breathing or cough. All other systems reviewed and are negative. PAST HISTORY See nurses notes. Previous stroke. CVA - Cerebrovascular Accident DVT - Deep Venous Thrombosis Gout Hypercholesterolemia Hypertension: [Active] Migraine with aura: [Active] Neuropathy: [Active] Surgeries: Hemorrhoidectomy Previous Abdominal Surgery Right Patella Medications: allopurinoL 100 mg tablet: 100 mg once a day . ascorbic acid (vitamin C) 500 mg tablet: 500 mg once a day . aspirin 81 mg capsule: 81 mg once a day . atorvastatin 40 mg tablet: 40 mg once a day . carvediloL 25 mg tablet: 12.5 mg twice a day . cyclobenzaprine 5 mg tablet: 5 mg three times a day . Eliquis 5 mg tablet: 5 mg twice a day . gabapentin 300 mg capsule: 300 mg three times a day . lisinopriL 20 mg tablet: 20 mg once a day . memantine 10 mg tablet: 1 tablet once a day. tamsulosin 0.4 mg capsule: 0.4 mg once a day . Allergies: no known drug allergies ADDITIONAL NOTES The nursing notes have been reviewed. 2 of 10 Narrative PHYSICAL EXAM Vital Signs: Have been reviewed. LABS, X-RAYS, AND EKG Laboratory Tests: CBC + DIFF Final DIMITRI: 09/17/2024 11:21:00 EST MsgRcvd: 09/17/2024 12:57 EST Lab Test Result Reference Status Received Comments 09/17/2024 12:57 CBC-COMPLETE CBC + DIFF Final EST BLOOD COUNT 09/17/2024 12:57 WBC 10.4 x 10/UL 4.5 - 10.8 Final EST 09/17/2024 12:57 RBC 4.99 x 10/UL 4.50 - 6.00 Final EST 09/17/2024 12:57 HEMOGLOBIN 14.9 g/dl 13.0 - 17.5 Final EST 09/17/2024 12:57 HEMATOCRIT 43.2 % 40.0 - 52.0 Final EST 09/17/2024 12:57 MCV 87 fl 81 - 98 Final EST 09/17/2024 12:57 MCH 30 pg 27 - 33 Final EST 09/17/2024 12:57 MCHC 35 X10 3 32 - 36 Final EST 09/17/2024 12:57 RDW/CV 14.6 % 12.0 - 15.6 Final EST 3 of 10 Narrative 09/17/2024 12:57 PLATELET 167 x10/UL 150 - 450 Final EST 09/17/2024 12:57 AUTOMATED MPV 8.2 fl 6.4 - 10.5 Final EST DIFFERENTIAL 09/17/2024 12:57 NEUT % 60.9 % 46.0 - 76.0 Final EST 09/17/2024 12:57 LYMPH % 29.7 % 20.0 - 45.0 Final EST 09/17/2024 12:57 MONOS % 7.0 % 0.0 - 10.0 Final EST 09/17/2024 12:57 EO % 1.8 % 0.0 - 7.0 Final EST 09/17/2024 12:57 BASO % 0.6 % 0.0 - 2.0 Final EST 3.08 x10/UL 09/17/2024 12:57 Lymph # 0.80 - 2.80 Final Above high normal EST 09/17/2024 12:57 Neut # 6.31 x10/UL 1.50 - 7.10 Final EST 09/17/2024 12:57 [place] # 0.72 x10/UL 0.20 - 1.00 Final EST 09/17/2024 12:57 EO # 0.19 x10/UL 0.00 - 0.50 Final EST 09/17/2024 12:57 Baso # 0.06 x10/UL 0.00 - 0.10 Final EST 09/17/2024 12:57 MANUAL DIFF N/A New Order EST 09/17/2024 12:57 MORPHOLOGY N/A New Order EST 4 of 10 Narrative CMP with eGFR Final DIMITRI: 09/17/2024 11:21:00 EST MsgRcvd: 09/17/2024 13:01 EST Lab Test Result Reference Status Received Comments COMPREHENSIVE 09/17/2024 CMP with eGFR Final METABOLIC 13:01 EST PANEL 09/17/2024 SODIUM 144 mmol/l 136 - 145 Final 13:01 EST 09/17/2024 POTASSIUM 4.0 mmol/L 3.5 - 5.1 Final 13:01 EST 09/17/2024 CHLORIDE 107 mmol/L 98 - 107 Final 13:01 EST 09/17/2024 CO2 28.8 mmol/L 21.0 - 32.0 Final 13:01 EST 111 mg/dl 09/17/2024 GLUCOSE Above high 74 - 106 Final 13:01 EST normal 24 mg/dl 09/17/2024 BUN Above high 7 - 18 Final 13:01 EST normal 1.53 mg/dl 09/17/2024 CREATININE Above high 0.70 - 1.30 Final 13:01 EST normal 09/17/2024 AST/SGOT 20 U/L 15 - 37 Final 13:01 EST 187 U/L 09/17/2024 ALK PHOS Above high 46 - 116 Final 13:01 EST normal 5 of 10 Narrative 09/17/2024 CALCIUM 8.9 mg/dl 8.5 - 10.1 Final 13:01 EST TOTAL 09/17/2024 7.2 g/dl 6.4 - 8.2 Final PROTEIN 13:01 EST 09/17/2024 ALBUMIN 3.7 g/dL 3.4 - 5.0 Final 13:01 EST 09/17/2024 GLOBULIN 3.5 G/DL 1.5 - 3.8 Final 13:01 EST 09/17/2024 A/G RATIO 1.1 0.9 - 1.6 Final 13:01 EST 09/17/2024 TOTAL BILI 0.3 mg/dl 0.2 - 1.0 Final 13:01 EST 09/17/2024 B/C RATIO 16 ratio 0 - 30 Final 13:01 EST 09/17/2024 ALT/SGPT 31 U/L 16 - 63 Final 13:01 EST 09/17/2024 ANION GAP 12 mmol/L 10 - 20 Final 13:01 EST 09/17/2024 AGE 53 years Final 13:01 EST 48 ML/MINUTE 09/17/2024 eGFR 60 - 999 Final Below low normal 13:01 EST 6 of 10 Narrative ACCORDING TO THE NATIONAL KIDNEY DISEASE EDUCATION PROGRAM(NKDE), A NORMAL eGFR IS A VALUE GREATER THAN OR EQUAL TO 60 ML/MIN/1.73 SQ METERS. 58 ML/MINUTE 09/17/2024 CHRONIC KIDNEY eGFR(AA) 60 - 999 Final Below low normal 13:01 EST DISEASE: <60mL/MIN/1.73 SQ METERS KIDNEY FAILURE: <15mL/MIN/1.73 SQ METERS THIS TEST SHOULD ONLY BE USED FOR PATIENTS 18 YEARS OF AGE AND OLDER. Diagnostic Study Tests: CT BRAIN W/O CONTRAST Final EXAM Date: 09/17/2024 13:00:00 EST MsgRcvd: 09/17/2024 13:[address] [address] Patient: KASI WARREN 7 Narrative Phone#: : 1970 Age: 53 Gender: M Pt. Type: ER Account: [id number] Location: 052 Ordering: JUDAH DAWSON Exam Date: 09/17/2024/12:51 Family Phys: Charge Code: [id number] Physician: Shannon Order #: [id number] Dose#: [id number] mGy PROCEDURE: CT BRAIN WITHOUT CONTRAST COMPARISON: [facility], CT, BRAIN W/O CON, 06/24/2024, 14:42. INDICATIONS: Headache. TECHNIQUE: CT images were obtained without contrast material. All CT scans at this facility use dose modulation, iterative reconstruction, and/or weight based dosing when appropriate to reduce radiation dose to as low as reasonably achievable. IV CONTRAST: No IV contrast used,0ml TOTAL DOSE: 52.3 CTDIvol(mGy) FINDINGS: CEREBRUM: No edema, hemorrhage, mass, acute infarction, or inappropriate atrophy. CEREBELLUM: No edema, hemorrhage, mass, acute infarction, or inappropriate atrophy. BRAINSTEM: No edema, hemorrhage, mass, acute infarction, or inappropriate atrophy. CSF SPACES: Ventricles, cisterns, and sulci are appropriate for age. No hydrocephalus, subarachnoid hemorrhage, or mass. SKULL: No mass or other significant visible lesion. SINUSES: Limited views demonstrate no significant mucosal thickening or fluid. ORBITS: Limited views are unremarkable. OTHER: Negative. CONCLUSION: 1. There is no evidence of acute intracranial abnormality. Dictated by: Geena Hughes MD on 09/17/2024 at 13:11 Approved by: Geena Hughes MD on 09/17/2024 at 13:12 MR MRI BRAIN W/O CONTRAST Final EXAM Date: 09/17/2024 14:03:00 EST MsgRcvd: 09/17/2024 14:23 [place] [id number] [place] [id number] Patient: KASI WARREN 8 Narrative Phone#: : 1970 Age: 53 Gender: M Pt. Type: ER Account: [id number] Location: 052 Ordering: JUDAH DAWSON Exam Date: 09/17/2024/13:42 Family Phys: Charge Code: [id number] Physician: Shannon Order #: [id number] Dose#: PROCEDURE: MRI BRAIN WITHOUT CONTRAST COMPARISON: [facility], CT, BRAIN W/O CON, 06/24/2024, 14:42. [facility], CT, BRAIN W/O CON, 09/17/2024, 12:51. INDICATIONS: Headache TECHNIQUE: A variety of imaging planes and parameters were utilized for visualization of suspected pathology. Images were performed without contrast. FINDINGS: CEREBRUM: There are a few foci of T2 and FLAIR signal hyperintensities in the deep cerebral white matter predominantly in the frontal lobes. There are 6 the on the right and 3 on the left. A field service representative lesion measures 0.7 cm. There small dilated perivascular spaces in the basal ganglia. No restricted diffusion. No sandy on hemo sequence. No edema, hemorrhage, mass, acute infarction, or inappropriate atrophy. CEREBELLUM: No edema, hemorrhage, mass, acute infarction, or inappropriate atrophy. BRAINSTEM: No edema, hemorrhage, mass, acute infarction, or inappropriate atrophy. CSF SPACES: Ventricles, cisterns, and sulci are appropriate for age. No hydrocephalus, subarachnoid hemorrhage, or mass. SKULL: No mass or other significant visible lesion. SINUSES: Mucosal thickening in the maxillary sinuses. ORBITS: Limited views are unremarkable. OTHER: Negative. CONCLUSION: 1. No acute intracranial abnormality. 2. Multifocal bilateral signal abnormalities. In a patient this age group the differential includes small vessel ischemic disease, postinfectious, postinflammatory or demyelinating etiologies. Dictated by: Linda Worthy MD on 09/17/2024 at 14:06 Approved by: Linda Worthy MD on 09/17/2024 at 14:20 PROGRESS AND PROCEDURES MEDICAL DECISION MAKING: Pertinent clinical findings include the onset of pain that occurred during exertion and the character of the pain that was not described as the worst ever. The findings also include the 9 of 10 Narrative comorbidities. Serious conditions are unlikely to be a cause for the patient's findings. The differential diagnosis includes, but is not limited to, subarachnoid hemorrhage, intracerebral bleed, subdural hematoma, epidural hematoma and cerebral aneurysm. No significant abnormalities were noted on the tests reviewed. No significant abnormalities were noted on the CT or MRI of the head. the patient has improved. Narcotics and non-narcotics were given. (states has had somewhat similar headaches ever since a severe stroke earlier this year.). Disposition: Condition: good and stable. Discharged in stable condition. Discharge decision based on the following: patient's condition is stable; patient's exam is stable; no seriously abnormal test results. CLINICAL IMPRESSION Acute headache. No treatment resistant headache or post traumatic headache. Possible acute migraine headache. DISCHARGE INSTRUCTIONS No strenuous activity for one days. Rest today. Follow-up: Follow up with your doctor in about two days. (Electronically signed by Judah Dawson M.D. 09/17/24 16:23:09 EST) [facility] by [facility] 10 of 10 ED VITALS FLOW SHEET Observed: 11:09 AM Status: F Source: [facility] Vitals Vital Sign Flow Sheet [address] [address] [id number] 09/17/2024 Patient: KASI WARREN Sex: Male : 1970 Age: 53y Measurements Wt: 132.9 kg, Ht/Conrado: 70.0 in, BMI: 42.04 Measured Time BP MAP HR RR O2Sat ETCO2 Temp Pain GCS RTS 16:06 09/17/2024 65 97% 16:01 09/17/2024 70 96% 15:56 09/17/2024 66 95% 15:51 09/17/2024 2 15:51 09/17/2024 70 96% 15:46 09/17/2024 71 99% 15:45 09/17/2024 133/92 102 60 15:41 09/17/2024 64 97% 15:36 09/17/2024 61 98% 15:31 09/17/2024 63 97% 15:30 09/17/2024 141/85 94 64 15:26 09/17/2024 63 98% 15:26 09/17/2024 4 15:21 09/17/2024 67 99% 15:16 09/17/2024 65 97% 1 of 4 Vitals Measured Time BP MAP HR RR O2Sat ETCO2 Temp Pain GCS RTS 15:15 09/17/2024 129/79 95 58 15:11 09/17/2024 62 99% 15:06 09/17/2024 70 97% 15:01 09/17/2024 60 98% 15:00 09/17/2024 144/98 113 61 14:56 09/17/2024 69 94% 14:51 09/17/2024 64 97% 14:46 09/17/2024 65 96% 14:45 09/17/2024 142/98 110 61 14:41 09/17/2024 64 95% 14:36 09/17/2024 62 95% 14:31 09/17/2024 65 97% 14:30 09/17/2024 154/92 112 70 14:26 09/17/2024 69 98% 14:21 09/17/2024 66 98% 14:16 09/17/2024 69 98% 14:15 09/17/2024 140/93 108 66 13:31 09/17/2024 65 95% 13:30 09/17/2024 141/90 98 61 13:26 09/17/2024 66 96% 13:21 09/17/2024 61 94% 13:16 09/17/2024 67 93% 13:15 09/17/2024 123/85 94 61 13:11 09/17/2024 63 95% 13:06 09/17/2024 63 95% 2 of 4 Vitals Measured Time BP MAP HR RR O2Sat ETCO2 Temp Pain GCS RTS 13:01 09/17/2024 67 97% 13:00 09/17/2024 125/75 93 63 12:51 09/17/2024 69 95% 12:46 09/17/2024 66 93% 12:45 09/17/2024 130/82 98 61 12:41 09/17/2024 70 95% 12:36 09/17/2024 63 94% 12:31 09/17/2024 62 94% 12:30 09/17/2024 131/78 86 68 12:26 09/17/2024 70 93% 12:21 09/17/2024 72 94% 12:16 09/17/2024 67 94% 12:15 09/17/2024 127/70 92 64 12:11 09/17/2024 70 94% 12:06 09/17/2024 69 93% 12:01 09/17/2024 67 95% 12:00 09/17/2024 129/77 89 65 11:56 09/17/2024 70 95% 11:54 09/17/2024 7 11:51 09/17/2024 68 94% 11:46 09/17/2024 69 93% 11:45 09/17/2024 117/77 98 69 11:41 09/17/2024 69 94% 11:36 09/17/2024 71 96% 11:17 09/17/2024 157/102 120 80 14 95% RA 98.4 F 7 3 of 4 Vitals 4 of 4 ED SUPER BILL Observed: 09/17/2024 11:09 AM Status: F Source: [address] [address] [id number] 09/17/2024 Patient: KASI WARREN Sex: Male : 1970 Age: 53y Facility Professional Category Item Description Code Code Quantity Fee Total Drugs Normal Saline 701365 1 $0.00 $0.00 1000cc (473828) Nurse/E/M EMERGENCY [id number] 1 $0.00 $0.00 DEPT VISIT HIGH SEVERITYFUNCJ (12750-09) Nurse/IV/IM/Infusions Hydration 578616 1 $0.00 $0.00 additional hour (43239) Nurse/IV/IM/Infusions IVP additional 556068 2 $0.00 $0.00 push (43570) Nurse/IV/IM/Infusions IVP initial (17162) 377091 1 $0.00 $0.00 Nurse/IV/IM/Infusions IVP same med [id number] 1 $0.00 $0.00 (31 min apart) (36498) Grand $0.00 Total [facility] Chief Complaint HEADACHE. also complains of tingling to his right arm that came on with a headache. He is able to move his arm without any noticeable weakness. Principal Diagnosis Acute headache. No treatment resistant headache or post traumatic headache. ICD-10 Codes R51.9: Headache, unspecified 2 of 2 PROGRESS Observed: 08/31/2024 11:00 AM Status: COMPLETED Source: [facility] AMBULATORY Neurology New Consult Note [facility] Date of Service: 08/31/24 Service Type: New Patient consultation Patient: Kasi Warren Date of : 1970 (53 y.o.) Referring Provider: Refer to consult order in electronic medical record PCP: Vito Quijano, ASSESSMENT: Kasi Warren is a 53 y.o. man who presents for headaches Patient reports various symptoms since December 2023 when he suffered small strokes in setting of sepsis/bacteremia. He has headaches, which are variably described as feeling like "squirrels running through my head", "feels like my nose is bleeding but it isn't," "head exploded", etc. It is constant. He has other features such as difficulty focusing, subjective memory loss, tinnitus, and moodchanges/irritability. His exam is fairly unremarkable, though limited by poor compliance. There are some functional features including giveway weakness and stuttering speech. As mentioned, he suffered a few tiny embolic strokes in December 2023 in the setting of sepsis/bacteremia. MRI at the time showed scattered small bi-hemispheric ischemic strokes. The burden of ischemia was very low. MIGDALIA was negative. He did have a DVT, so was put on Eliquis; he is still on it but does not know why. Stroke risk factors other than his prior sepsis include ADILSON, HLD, HTN, and obesity. Repeat MRI brain in January 2024 was unremarkable with no further sign of ischemic injury; the previous strokes are not all easily identified, likely due to their small size. Certainly the tiny strokes are not responsible for his headaches or any of his other symptoms. I would expect a full recovery from such minimal ischemic insult within a few months at most, usually much less in a younger individual. Would work on modifiable risk factors (ADILSON, HTN, obesity, etc). I will get an MRV to rule out a venous sinus thrombus contributing to headaches. As mentioned, the tiny embolic insults are certainly not going to explain his symptoms. He has no features of ongoing infection and was appropriately treated for bacteremia, but if headaches persist, CSF analysis could be considered. The headaches do not meet ICHD-3 criteria for migraine or any other primary headache disorder. Some somatic features of untreated mood disorder may contribute. History of neuropathy for last couple of years. EMG reportedly showed severe bilateral sensorimotor polyneuropathy - I do not have the full report, just his prior neurologist's note. Full lab workup was unremarkable. A repeat EMG may be beneficial in the future but he wants to focus on his more pressing symptoms, like the headaches. Of note, he reports absence to any light touch or pinprick but relatively intact vibratory and proprioceptive skills, which suggests if there is a neuropathy it is predominantly small fiber. He attributes it to a T12 compression fracture which obviously is not the cause. Overall to start with we are going to get an MRI/MRV of the brain to rule out sinus thrombus, which is admittedly unlikely. I will empirically start headache treatment with memantine, which could also help his subjective memory concerns. He has been on topiramate (he thinks) without relief; I would stop this as it could exacerbate his mood/cognitive complaints. Venlafaxine or other SNRI would be my next option. Will hold off on EMG but that may be a next step as well. For stroke prevention, he is still on anticoagulation for unclear reasons. He is also on aspirin. He does not need both for stroke prevention, one will suffice. If he ever goes off the Eliquis, just maintain on ASA 81 for monotherapy, plus his statin. Problems addressed in this visit: 1. Chronic intractable headache, unspecified headache type 2. Cerebrovascular accident (CVA) due to embolism of other cerebral artery (HCC) 3. History of stroke PLAN: Medication changes: memantine 10mg daily Labs: none Imaging: MRI/MRV brain w/o Other: none Follow Up: 4 months Attestation: Discussed risks, benefits and alternatives regarding treatment options, and diagnoses with Mr Warren and his . Answered questions and we discussed plan at length. I independently reviewed past history, previous clinic notes, lab results, allergies, medications and radiology images which are summarized in this note with annotations wherever appropriate. Time statement: A total of 70 minutes were spent on this encounter. This includes the following patient-centered activities: 1. Preparation for patient's visit (reviewing previous chart, current medical records, previous history, exam, test, procedure, and medications) 2. Face to face encounter obtaining history from the patient/family/caregivers; performing evaluation and examination; ordering medications, tests, or procedures; referring and communicating with other healthcare professionals; counseling and education of the patient/family/caregiver; independently interpreting results (tests, labs, procedures, imaging) and communicating and explaining results to the patient/family/caregiver 3. Coordination of care; preparing and printing discharge instruction and any educational material for the patient and caregivers. Documenting clinical information in the electronic and other health records. Reviewing OARRS as needed. Salvatore Georges MD Staff Neurologist [facility] [id number] [id number], [place] [id number] [facility] 08/31/24 Subjective Chief Complaint/Reason for Consult: headaches Informant(s): self, Initial History of Present Illness 08/31/24: Kasi Warren is a 53 y.o. man who reports a pertinent history of stroke, DVT, ADILSON, HTN, HLD, COPD, CKD, who presents to the office today for headaches. Extremely poor historian ( is not that much better). Patient was admitted in December 2023 for AMS, was in septic shock, found to have group A streptococcal bacteremia along with acute respiratory failure, renal failure, and bilateral lower extremity cellulitis and DVT. MRI brain showed scattered small bihemispheric ischemic strokes, felt to be embolic related to sepsis, DVT. A MIGDALIA was unremarkable. He says that since then he has had a constant severe headache. It is variably described as feeling like "squirrels running through my head", "feels like my nose is bleeding but it isn't," "head exploded", "pressure", "stabbing everywhere", "pounding", "ringing", etc. Whole head seems to be involved sometimes radiating into the neck/shoulders. Tinnitus appears to be intermittent in both ears. Sensitive to light and sound. Memory feels poor. says he will forget everything, sometimes he thinks he is living in the past. She has to explain everything that has happened to him. Mood is very poor. He gets distracted easily. Has not been back to work since the stroke, says he was told not to drive although he doesn't know who. He takes Tylenol, multiple per day, for the headaches, with no relief. He cannot tell me anything about what has been tried for it, and does not know any of his meds or what they are for. I see he is on topiramate, which is likely for headaches, though he does not know why or if it helped; doesn't think it did help. He does carry a diagnosis of dyslexia by his report and reports some chronic reading difficulty. Has chronic numbness in the feet since 2010 or so. Reportedly diagnosed with EMG [place] [address] Hall which showed neuropathy but we do not have access to the study. He says this is due to a T12 compression fracture. It does not appear to be progressing. He says he can't feel anything in his legs at all, though see exam below for true sensory exam. Review of Systems: All systems reviewed and negative except those documented in the History of Present Illness (HPI). Pertinent positives are documented below: + headaches + memory loss + numbness Medical/Surgical/Social/Family Histories: Pertinent Family Hx: no pertinent family hx Social situation: denies drug, alcohol, tobacco use He has a past medical history of Asthma, CKD (chronic kidney disease), COPD (chronic obstructive pulmonary disease) ([facility]), Gout, HLD (hyperlipidemia), HTN (hypertension), ADILSON (obstructive sleep apnea), and Stroke ([facility]) (12/23/2023). He has no past surgical history on file. He family history is not on file. He reports that he does not drink alcohol and does not use drugs. Allergies: Allergies: Patient has no known allergies. HOME Medications: Current Outpatient Medications Medication Instructions allopurinoL (ZYLOPRIM) 100 mg, Daily apixaban (ELIQUIS) 5 mg, Oral, 2 times daily ascorbic acid, vitamin C, (VITAMIN C) 500 MG tablet aspirin 81 mg, Daily atorvastatin (LIPITOR) 40 mg, Daily carvediloL (COREG) 12.5 mg, 2 times daily with meals gabapentin (NEURONTIN) 300 mg, As needed lisinopriL (PRINIVIL,ZESTRIL) 5 mg, Oral, Daily with lunch memantine (NAMENDA) 10 mg, Oral, Daily tamsulosin (FLOMAX) 0.4 mg, Daily Objective OBJECTIVE: Physical Examination: BP 125/80 (BP Location: Left arm, Patient Position: Sitting, BP Cuff Size: Adult) Pulse 69 Resp 16 Ht 5' 10" SpO2 96% BMI 41.38 kg/m GENERAL: General Appearance: In NAD HEENT: Normocephalic. No conjunctival injection. Ears appear normal. No substantial sinus drainage. See below for vision/hearing Neck: Supple, no focal bony tenderness, no mass lesions Respiratory Effort: Normal Extremities: No edema Skin: No rashes visualized MSK: No joint deformities Headache specific exam shows moderate diffuse scalp tenderness. no scalp mass. No focal areas of tenderness over the mastoid, greater or lesser occipital nerve exit points. No vascular thickening or other mass lesions noted over the temples. TMJ is nontender, and unrestricted. No sinus tenderness noted anywhere. No focal tenderness over the cervical paraspinal muscles, trapezius muscles, and scapular muscles. no myofascial trigger point tenderness elsewhere. Fundoscopic Exam: unable to adequately visualize fundus due to light sensitivity and poor participation in exam. The edges of the optic disc appeared to be clear so there is no major edema although the full area was not visualized. Neurologic Exam: MENTAL STATUS: Alertness, Attention Span & Concentration: awake. He had no eye contact during the duration of the visit. He is distractible. Loses train of thought. Does not participate well in formal exam, low effort on testing. Language: frequent pauses. Speech: some stuttering speech, distractible Orientation: Oriented to person, place, time/date, and situation CRANIAL NERVES: II - Visual Santacruz: Normal II, III: Pupils: PERRL, no RAPD III, IV, : Eye Movements: Normal (EOMI, No ptosis, No nystagmus) V - Facial Sensation: Normal VII: Face Symmetry & Strength: Normal VIII - Hearing: Normal to finger rub b/l IX, X - Palate: Normal, elevates symmetrically XI - Shoulder Shrug: Normal XII - Tongue Protrusion: Normal, symmetric MOTOR: Pain and/or effort limited. There is chronic weakness in the right shoulder from old injury. No other obvious focal weakness. Tone is normal. SENSATION: Fine Touch: reportedly absent below knees Pinprick: absent below knees Proprioception: Normal Vibration: basically normal in lower extremities; in upper extremities he reports feeling it persist long after it actually has stopped Temperature: Normal REFLEXES: Right Reflexes Left 2+ Biceps 2+ 2+ Triceps 2+ 2+ Brachioradialis 2+ 1+ Patellar 1+ 1+ Achilles 1+ Down Plantar Response (Babinski) Down REFLEXES LANDEROS: 4+ Sustained Clonus 3+ Brisk 2+ Normal 1+ Diminished 0 Absent AMY Unable to Assess COORDINATION: Coordination [id number]: Normal STANCE AND GAIT: Slow, cautious gait, uses cane or walker to stabilize. Wide based. MOVEMENT DISORDERS EXAMINATION: Tremor - no tremors noted Bradykinesia - None Rigidity - None Dyskinesia/Choreoathetosis - None Dystonia/Myoclonus/Tics - None PRIOR TESTING: Imagin12/23/23 CT head: No acute intracranial process. Probably an old lacunar infarct in the right globus pallidus. Small air-fluid levels in the maxillary sinuses. 12/23/23 Ultrasound duplex venous legs bilateral: No evidence of deep or superficial vein thrombosis in the right lower extremity. Acute deep vein thrombosis in the posterior tibial and one of the paired peroneal veins of the left lower extremity. 12/24/23 MR brain: There are multiple small foci of diffusion restriction throughout the white matter of the cerebral hemispheres mostly in the frontal lobes and left temporal lobe consistent with small acute to subacute embolic infarcts. No hydrocephalus. No mass effect. No evidence of hemorrhage. No masses. 12/26/23 Ultrasound doppler carotid: Normal duplex examination of the right and left internal carotid arteries. Right and left vertebral arteries are patent with antegrade flow. 12/26/23 MIGDALIA: Normal left ventricular size and systolic function. Normal right ventricular size and systolic function. No significant valvular abnormality. No vegetation or evidence of valvular endocarditis visualized. No mass or thrombus visualized in the right atrium, left atrium or left atrial appendage. Catheter visualized within the right atrium. No thrombus/vegetation visualized attached to the PICC line catheter. Intact interatrial septum by color Doppler and agitated saline. There is no pericardial effusion. 12/27/23 CT head: Mild age-appropriate volume loss. Mild patchy low-density white matter disease, likely small vessel ischemic changes. No mass, bleed or any obvious large vessel infarct. Partial opacification of the paranasal sinuses the mastoid air cells likely related to intubated status. 12/29/23 Ultrasound duplex venous legs bilateral: No evidence of deep or superficial vein thrombosis in the right lower extremity. No change in acute deep vein thrombosis in the posterior tibial veins of the left lower extremity. Complete resolution of thrombus in the left peroneal veins. 02/04/24 MRI brain w/o: No acute intracranial infarct. Mild to moderate burden of T2/FLAIR hyperintense foci within the periventricular white matter. Stable. No clear sign of prior infarcts. 02/04/24 MRI C-spine w and wo: no cord signal abnormality or enhancement. Mild degenerative changes with disc osteophyte complex at C4-5 causing mild spinal stenosis and mild left foraminal stenosis. Similar at C5-6 and C6-7, both of which have mild spinal stenosis, moderate right and mild left foraminal stenosis. 02/04/24 MRI T-spine w/ and w/o: no enhancement or cord signal abnormality. Mild degenerative changes. There are 13 thoracic vertebrae with a mild chronic compression fracture at T13. 02/04/24 MRI L-spine w/ and w/o: no enhancement or cord signal abnormality. Mild degenerative changes without significant foraminal or central stenosis. 05/07/24 CT head: No acute intracranial findings. Stable mild atrophy and white matter disease changes. EMG BLE 04/13/[address] Hall reportedly showed severe sensorimotor neuropathy but we don't Labs: CBC with anemia, Hgb 12.4 on last check. CK 26, aldolase 2.8 (both low normal). BMP WNL. A1c 5.5. Previous workup including B12, folate, MMA, HIV, LOYD panel, ANCA, copper, negative. Immunofixation normal. SPEP with decreased gammaglobulins. HALLE borderline at 1:40 speckled. AUTHENTICATED BY SALVATORE GEORGES, ON 08/31/2024 14:08:32 PROGRESS Observed: 08/07/2024 1:30 PM Status: COMPLETED Source: [facility] Stroke Prevention High Risk Neurology Subspecialty Group Outpatient Clinic Follow-up [facility] 08/07/2024 Jane Waters [place], [employer] [id number] [facility] [address] [facility] [address] Patient: Kasi Warren Date of : 1970 (53 y.o. male) PCP: Vito Quijano, ASSESSMENT & PLAN: Embolic stroke (HCC) Assessment: 53 y.o. male presented to ED on 12/23/23 with altered mental status, chills, rectal bleeding. Found to have septic shock with group A strep bacteremia, respiratory failure, renal failure, bilateral lower extremity cellulitis and thrombocytopenia. MRI brain showed scattered small bi-hemispheric ischemic strokes embolic in the setting of his sepsis/bacteremia, DVT. Etiology sepsis, bacteremia, DVT. MIGDALIA without endocarditis, mass or thrombus, left atrium normal size. -Stroke risk factors hyperlipidemia, hypertension, and obstructive sleep apnea, hypercoagulable state of infection/septicemia Plan: -Continues Eliquis in setting of DVT; if stopped will need to continue aspirin 81 mg for secondary stroke prevention. -If anticoagulation is stopped should evaluate further with cardiac event monitor for 30 days. -Outpatient systolic blood pressure goal is to be within 110-130 from a secondary stroke prevention standpoint. -LDL goal < 70, Hemoglobin A1c goal 6.5 or lower. -Phone number to schedule with neurology for headache placed on AVS. -The ongoing importance of adequate sleep, exercise, hydration, and healthy diet were discussed. -The "core 4" causes of recrudescence of ones old stroke symptoms were discussed at length with the patient and family; dehydration, infection, sleep deprivation, and significant stressors. -Extensive stroke prevention teaching provided today. All questions and concerns were addressed. Education given on signs and symptoms of stroke both verbally and written. -Thankfully, Kasi Warren's stroke work-up is complete. The risk factors have been appropriately addressed or investigated from a secondary stroke standpoint. Therefore, further follow up in the Stroke Prevention Clinic is no longer a necessity. Unless a new stroke or stroke specific symptoms arise, it would be most appropriate to see another Neurologist for any other non-stroke related neurological issues if they were to ever occur. No orders of the defined types were placed in this encounter. Requested Prescriptions No prescriptions requested or ordered in this encounter Follow-up: Return if symptoms worsen or fail to improve. Answered questions and discussed assessment and plan at length. Instructed patient to contact me promptly with additional concerns. This visit was completed under the direction of my collaborating physician. Total Time Spent: On the date of this encounter, I spent a total of at least 40 minutes on the encounter, including pre-visit work, intra-visit work, post-visit work and associated documentation. DIAGNOSTIC TESTING SUMMARY: (MRI/CT/XR, EEG, EMG, CSF, Cardiac, Labs) I independently reviewed the MR, CT, and Ultrasound, Echocardiogram images and agree with the interpretation(s) with the following comments: 12/23/23 CT head: No acute intracranial process. Probably an old lacunar infarct in the right globus pallidus. Small air-fluid levels in the maxillary sinuses. 12/23/23 Ultrasound duplex venous legs bilateral: No evidence of deep or superficial vein thrombosis in the right lower extremity. Acute deep vein thrombosis in the posterior tibial and one of the paired peroneal veins of the left lower extremity. 12/24/23 MR brain: There are multiple small foci of diffusion restriction throughout the white matter of the cerebral hemispheres mostly in the frontal lobes and left temporal lobe consistent with small acute to subacute embolic infarcts. No hydrocephalus. No mass effect. No evidence of hemorrhage. No masses. 12/26/23 Ultrasound doppler carotid: Normal duplex examination of the right and left internal carotid arteries. Right and left vertebral arteries are patent with antegrade flow. 12/26/23 MIGDALIA: Normal left ventricular size and systolic function. Normal right ventricular size and systolic function. No significant valvular abnormality. No vegetation or evidence of valvular endocarditis visualized. No mass or thrombus visualized in the right atrium, left atrium or left atrial appendage. Catheter visualized within the right atrium. No thrombus/vegetation visualized attached to the PICC line catheter. Intact interatrial septum by color Doppler and agitated saline. There is no pericardial effusion. 12/27/23 CT head: Mild age-appropriate volume loss. Mild patchy low-density white matter disease, likely small vessel ischemic changes. No mass, bleed or any obvious large vessel infarct. Partial opacification of the paranasal sinuses the mastoid air cells likely related to intubated status. 12/29/23 Ultrasound duplex venous legs bilateral: No evidence of deep or superficial vein thrombosis in the right lower extremity. No change in acute deep vein thrombosis in the posterior tibial veins of the left lower extremity. Complete resolution of thrombus in the left peroneal veins. [facility]: 02/04/24 MR brain: No acute intracranial infarct. Mild to moderate burden of T2/FLAIR hyperintense foci within the periventricular white matter. Findings are suggestive of chronic small vessel ischemic disease although they can also be seen in the setting of demyelinating disease, migraine headaches, or hypertension among other possibilities. Lab Results Component Value Date HGBA1C 5.5 12/24/2023 LDLCALC 30 12/24/2023 SUBJECTIVE: Chief Complaint: Stroke Prevention [facility] Follow-up Appointment approximately 4 months following stroke History of Present Illness (HPI) since last visit: Informant(s): Patient, and Grandson Kasi Warren is a 53 y.o. male with pertinent history of hypertension, hyperlipidemia, obstructive sleep apnea, chronic kidney disease III, gout, asthma, COPD who was admitted as a transfer from [facility] to [facility] 12/23/23 - 01/06/24 with altered mental status, chills, rectal bleeding. Found to have septic shock with group A strep bacteremia, respiratory failure, renal failure, bilateral lower extremity cellulitis and thrombocytopenia. MRI brain showed scattered small bi-hemispheric ischemic strokes embolic in the setting of his sepsis/bacteremia, DVT. Etiology sepsis, bacteremia, DVT. MIGDALIA without endocarditis, mass or thrombus, left atrium normal size. Discharged on Eliquis for DVT. Tm reports doing physical therapy once in a while, stopped for a bit until they see the headache doctor. Still having headaches, feels like sinus pressure, taking tylenol or ibuprofen. Vision is OK on some days, then some days it's bleeding. Riding in the car is difficult, has to close his eyes. Left ear plugs up, not sure if it's related to hearing or not; right ear ringing. Denies new signs/symptoms of stroke/TIA. Denies chest pain/palpitations. Good consistency with medications, is managing. Blood pressure is high since he's here, head's hurting. If he falls asleep, when he wakes up he doesn't remember what happened before he fell asleep. No alcohol/tobacco use. Good hydration with Cirkul. He's waiting on SSDI. They keep asking him if he can return to work, though can't do anything for a long period of time. Review of Systems: All systems reviewed and negative except pertinent positives and negatives documented in the History of Present Illness (HPI). Medications: Outpatient Medications Marked as Taking for the 08/07/24 encounter (Office Visit) with Jane Galloway CNP Medication Sig albuterol 90 mcg/actuation inhaler Inhale 2 (two) puffs every 6 (six) hours as needed for wheezing or shortness of breath . allopurinoL (ZYLOPRIM) 100 MG tablet Take 1 (one) tablet (100 mg total) by mouth daily . apixaban (ELIQUIS) 5 mg Tab Take 1 (one) tablet (5 mg total) by mouth 2 (two) times a day . aspirin 81 MG EC tablet Take 1 (one) tablet (81 mg total) by mouth daily . atorvastatin (LIPITOR) 40 MG tablet Take 1 (one) tablet (40 mg total) by mouth daily . carvediloL (COREG) 12.5 MG tablet Take 1 (one) tablet (12.5 mg total) by mouth 2 (two) times a day with meals . cyclobenzaprine (FLEXERIL) 5 MG tablet Take 1 (one) tablet (5 mg total) by mouth every 8 (eight) hours as needed for muscle spasms . gabapentin (NEURONTIN) 300 MG capsule Take 1 (one) capsule (300 mg total) by mouth as needed (pain) . (Patient taking differently: Take 1 (one) capsule (300 mg total) by mouth 3 (three) times a day .) lisinopriL (PRINIVIL,ZESTRIL) 5 MG tablet Take 1 (one) tablet (5 mg total) by mouth daily with lunch . naloxone (NARCAN) 4 mg/actuation [place] Administer 1 spray into one nostril for known or suspected opioid overdose. If patient worsens or does not respond, may repeat in 2-3 minutes. . tamsulosin (FLOMAX) 0.4 mg capsule Take 1 (one) capsule (0.4 mg total) by mouth daily . OBJECTIVE: Physical Examination: BP (!) 139/94 (BP Location: Left arm, Patient Position: Sitting, BP Cuff Size: X-large Adult) Pulse 62 Ht 5' 10" Wt 130.8 kg (288 lb 6.4 oz) BMI 41.38 kg/m LANDEROS: DNFC: Does Not Follow Commands AMY: Unable to Assess GENERAL: General Appearance: Holding head, covering eyes; reports headache Eyes: See pupils below Ears: See hearing below Neck: Supple Respiratory Effort: Normal Extremities: No edema Skin: No rashes visualized MENTAL STATUS: Alertness, Attention Span & Concentration: Normal Language: Normal Speech: Normal Orientation: Normal Memory, Recent & Remote: Not formally evaluated today Fund of Knowledge: Not formally evaluated today CRANIAL NERVES: II - Visual Santacruz: Able to correctly identify number of fingers in all four quadrants II, III - Pupils: PERRL III, IV, - Eye Movements: Normal (EOMI, no ptosis, no nystagmus) V - Facial Sensation: Sensation DECREASED on left VII - Face Symmetry and Strength: Normal VIII - Hearing: Normal IX, X - Palate: Normal XI - Shoulder Shrug: Normal XII - Tongue Protrusion: Normal COORDINATION & GROSS MOTOR: Abnormal Movements: None Coordination Lonclb-fh-Cazy: Normal Coordination: Eflr-Lqta-Uneb:Normal Rapid Alternating Movements: Normal Drift: None Tone: Normal Bulk: Normal MOTOR - MUSCLE STRENGTH: Muscle Strength Right Left 5 Shoulder Abduction (Deltoid) 5 5 Elbow Flexion (Biceps) 5 5 Elbow Extension (Triceps) 5 5 Finger Abduction (Interossei) 5 5 Hip Flexion (Iliopsoas) 5 5 Knee Extension (Quads) 5 5 Knee Flexion (Hamstrings) 5 5 Dorsiflexion (Anterior Tibialis) 5 MOTOR LANDEROS: 5 Normal (Normal Power) 4 Mild Weakness (Movement against moderate resistance over a full range of motion) 3 Moderate Weakness (Movement against gravity over almost full range of motion) 2 Severe Weakness (Movement with gravity eliminated over almost full range of motion) 1 Trace Movement (flicker of contraction visible or palpable) 0 No Movement (No contraction visible or palpable) AMY Unable to Assess SENSATION: Fine Touch: Normal Double Simultaneous Stim: Normal OTHER: Estimated body mass index is 41.38 kg/m as calculated from the following: Height as of this encounter: 5' 10". Weight as of this encounter: 130.8 kg (288 lb 6.4 oz). Wt Readings from Last 3 Encounters: 08/07/24 130.8 kg (288 lb 6.4 oz) 05/07/24 126.1 kg (278 lb) 01/06/24 112.1 kg (247 lb 2.2 oz) CLINICAL METRICS: Stroke Assessment - 08/07/24 1333 NIH Stroke Scale Level of Consciousness (1a.) 0 LOC Questions (1b.) 0 LOC Commands (1c.) 0 Best Gaze (2.) 0 Visual (3.) 0 Facial Palsy (4.) 0 Motor Arm, Left (5a.) 0 Motor Arm, Right (5b.) 0 Motor Leg, Left (6a.) 0 Motor Leg, Right (6b.) 0 Limb Ataxia (7.) 0 Sensory (8.) 0 Best Language (9.) 0 Dysarthria (10.) 0 Extinction and Inattention (11.) (Formerly Neglect) 0 Total 0 10 Meter Walk No documentation. Modified [place] Score - 08/18/24 1102 Modified [place] Scale Modified [place] Score 2 PHQ-2/9 Depression Screening No documentation. Neurological Quality of Life (Neuro-QOL) Patient Reported Outcomes: No data to display AUTHENTICATED BY JANE GALLOWAY, ON 08/18/2024 11:06:52 RETORT FIRER REPORT Observed: 07/30/2024 12:33 PM Status: F Source: [facility] CONSULTATION REPORT NAME ACCOUNT SEX AGE ADMIT DISCHARGE PT MED. RECORD# NUMBER DATE DATE TYPE BRIANA [id number] Shun 53 07/30/2024 07/30/2024 Alayna Hoffmann [id number] ROOM: DATE OF : 1970 DICTATING PHYSICIAN: Poncho Dias HISTORY OF PRESENT ILLNESS: The patient is seen today on July 30, 2024 at the [facility] in [place], [place]. The patient states he is not doing well. He continues to have intermittent headaches, which are severe. His last visit was in the emergency department where they have him a headache medication, it appears to be Fioricet. He said he takes them sparingly as possible, but the headaches continue. The patient has an appointment for a neurologist in [place], but it is several months off. REVIEW OF SYSTEMS: The patient's review of systems is positive for a CVA in December of this year. He was intubated, now is left with the headaches intermittently and ringing in his ears. Hopefully, the neurologist can get to the bottom of this, and we will try to keep him comfortable until them. The patient's neuropathic pain in the lower extremity is really doing quite well with gabapentin 300 mg t.i.d. dosing. There are no ill effects from the medications. They do help his feet pain, which is a major problem, and he is not diabetic, he has been checked multiple times. 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 The remainder of review of systems, intake form, pain questionnaire, nursing assessment, and OARRS report were reviewed. PHYSICAL EXAMINATION: GENERAL APPEARANCE: Reveals a 53-year-old male who is alert x3 and pleasant. VITAL SIGNS: He states his weight has stabilized, probably with the use of Topamax that we gave him for not only the neuropathic pain, but the headaches. He is 278 pounds and 70 inches. Pain level is a 5 out of 10. Temperature is 97, pulse 70, respirations 16, and blood pressure 150/100. Cervical range of motion is preserved. His cranial nerves are intact. I do not detect any weakness in the upper or lower extremity. HEART: Heart is regular. Peripheral pulses are maintained. LUNGS: Lungs are clear in all lung santacruz. ABDOMEN: Soft and rotund. EXTREMITIES: Examination of the lumbar spine reveals full range of motion. He does have decreased sensation in the feet more than the hands. 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 Idiopathic neuropathy/G60.9. 2. Chronic daily headaches since cerebrovascular accident/R51.9. 3. Lumbar stenosis with leg pathology/mild. PLAN: We will give him Fioricet to have once a day p.r.n., but no more than 20 a month until he can be seen by a neurologist. We will continue the Topamax at 100 mg at night and gabapentin 300 mg throughout the daytime. He will call if any problems. Dictated By: Poncho Dias DO 07/30/2024 13:48 JOB #: [id number] Transcribed By: am 07/30/2024 14:36 Electronically signed by: E-SIGN: PONCHO DIAS 07/31/24 08:09 Page 2 of 2 KASI WARREN Property Management Supervisor Report M CT BRAIN W/O CONTRAST Observed: 06/24/20 3:57 PM Status: F Source: [place] [id number] Patient: KASI WARREN Phone#: : 1970 Age: 53 Gender: M Pt. Type: ER Account: [id number] Location: [facility] Ordering: CISCO URRUTIA Exam Date: 06/24/2024/14:42 Family Phys: Charge Code: [id number] Physician: Shannon Order #: [id number] Dose#: 52.3mGy PROCEDURE: CT BRAIN WITHOUT CONTRAST COMPARISON: [facility], CT, BRAIN W/O CON, 06/14/2024, 17:50. INDICATIONS: Migraine. TECHNIQUE: CT images were obtained without contrast material. All CT scans at this facility use dose modulation, iterative reconstruction, and/or weight based dosing when appropriate to reduce radiation dose to as low as reasonably achievable. IV CONTRAST: No IV contrast used,0.0ml TOTAL DOSE: 52.3mGy CTDIvol(mGy) FINDINGS: CEREBRUM: No edema, hemorrhage, mass, acute infarction, or inappropriate atrophy. CEREBELLUM: No edema, hemorrhage, mass, acute infarction, or inappropriate atrophy. BRAINSTEM: No edema, hemorrhage, mass, acute infarction, or inappropriate atrophy. CSF SPACES: Ventricles, cisterns, and sulci are appropriate for age. No hydrocephalus, subarachnoid hemorrhage, or mass. SKULL: No mass or other significant visible lesion. SINUSES: Limited views demonstrate no significant mucosal thickening or fluid. ORBITS: Limited views are unremarkable. OTHER: Negative. CONCLUSION: 1. There is no evidence of acute intracranial abnormality. Dictated by: Geena Hughes MD on 06/24/2024 at 15:00 Approved by: Geena Hughes MD on 06/24/2024 at 15:57 INFLUENZA VIRUS RAPID A/B Observed: 06/12 3:52 PM Status: F Source: [facility] INFLUENZA A NEGATIVE INFLUENZA B NEGATIVE INTERNAL NEG QC PASS INTERNAL POS QC PASS EXTERNAL QC DONE? YES SEND TO IC? BANDAR NEGATIVE TEST RESULT DOES NOT EXCLUDE INFECTION WITH INFLUENZA A OR B. THEREFORE, THE RESULTS OBTAINED FROM THIS FLU TEST SHOULD BE USED IN CONJUCTION WITH CLINICAL FINDINGS TO MAKE AN ACCURATE DIAGNOSIS. A POSITIVE RESULT DOES NOT RULE OUT CO-INFECTIONS WITH OTHER PATHOGENS OR IDENTIFY ANY SPECIFIC INFLUENZA A VIRUS SUBTYPE.CO-INFECTION WITH INFLUENZA A AND B IS RARE. IT IS RECOMMENDED THAT "DUAL POSITIVE" RESULTS BE CONFIRMED BY VIRAL CULTURE OR AN FDA-CLEARED INFLUENZA A AND B MOLECULAR ASSAY. INDIVIDUALS WHO HAVE RECEIVED NASALLY ADMINISTERED INFLUENZA A VACCINE MAY TEST POSITIVE IN COMMERCIALLY AVAILABLE INFLUENZA RAPID DIAGNOSTIC TESTS FOR UP TO THREE DAYS. RESULT CRITICAL? NO Performed By: #### [id number] ## ## [facility],[address] [place] [address] CMP WITH EGFR Collected: 4 3:31 PM Status: F Source: [facility] TYPE CODE TESTS RESULT OUT OF RANGE REFERENCE UNITS LAB CMP with eGFR(LOINC) CMP with eGFR Result Comment: COMPREHENSIV E METABOLIC PANEL LAB SODIUM(LOINC) SODIUM 141 136 - 145 mmol/l LAB POTASSIUM(LOIN C) POTASSIUM 4.5 3.5 - 5.1 mmol/L LAB CHLORIDE(LOINC ) CHLORIDE 108 High 98 - 107 mmol/L LAB CO2(LOINC) CO2 24.5 21.0 - 32.0 mmol/L LAB GLUCOSE(LOINC) GLUCOSE 92 74 - 106 mg/dl LAB BUN(LOINC) BUN 25 High 7 - 18 mg/dl LAB CREATININE(CHANTE NC) CREATININE 1.46 High 0.70 - 1.30 mg/dl LAB AST/SGOT(LOINC ) AST/SGOT 14 Low 15 - 37 U/L LAB ALK PHOS(LOINC) ALK PHOS 164 High 46 - 116 U/L LAB CALCIUM(LOINC) CALCIUM 9.0 8.5 - 10.1 mg/dl LAB TOTAL PROTEIN(LOINC) TOTAL PROTEIN 6.2 Low 6.4 - 8.2 g/dl LAB ALBUMIN(LOINC) ALBUMIN 3.0 Low 3.4 - 5.0 g/dL LAB GLOBULIN(LOINC ) GLOBULIN 3.2 1.5 - 3.8 G/DL LAB A/G RATIO(LOINC) A/G RATIO 0.9 0.9 - 1.6 LAB TOTAL BILI(LOINC) TOTAL BILI 0.5 0.2 - 1.0 mg/dl LAB B/C RATIO(LOINC) B/C RATIO 17 0 - 30 ratio LAB ALT/SGPT(LOINC ) ALT/SGPT 17 16 - 63 U/L LAB ANION GAP(LOINC) ANION GAP 13 10 - 20 mmol/L LAB AGE(LOINC) AGE 53 years LAB eGFR(LOINC) eGFR 51 Low 60 - 999 ML/MINUT E LAB eGFR(AA)(LOINC ) eGFR(AA) >60 60 - 999 ML/MINUT E Result Comment: ACCORDING TO THE NATIONAL KIDNEY DISEASE EDUCATION PROGRAM(NKDE), A NORMAL eGFR IS A VALUE GREATER THAN OR EQUAL TO 60 ML/MIN/1.73 SQ METERS. CHRONIC KIDNEY DISEASE: <60mL/MIN/1.73 SQ METERS KIDNEY FAILURE: <15mL/MIN/1.73 SQ METERS THIS TEST SHOULD ONLY BE USED FOR PATIENTS 18 YEARS OF AGE AND OLDER. Performed By: #### [id number] ## ## [place] [id number] C-REACTIVE PROTEIN Collected: 4 3:31 PM Status: F Source: [facility] TYPE CODE TESTS RESULT OUT OF RANGE REFERENCE UNITS LAB CRP(INC) CRP 0.60 0.00 - 0.90 mg/dl Performed By: #### [id number] ## ## [place] [id number] CBC + DIFF Collected: 4 3:31 PM Status: F Source: [facility] TYPE CODE TESTS RESULT OUT OF RANGE REFERENCE UNITS LAB CBC + DIFF(LOINC) CBC + DIFF Result Comment: CBC-COMPLETE BLOOD COUNT LAB WBC(LOINC) WBC 7.4 4.5 - 10.8 x 10EE3/UL LAB RBC(LOINC) RBC 4.66 4.50 - 6.00 x 10EE6/UL LAB HEMOGLOBIN(CHANTE NC) HEMOGLOBIN 13.7 13.0 - 17.5 g/dl LAB HEMATOCRIT(CHANTE NC) HEMATOCRIT 41.1 40.0 - 52.0 % LAB MCV(LOINC) MCV 88 81 - 98 fl LAB MCH(LOINC) MCH 29 27 - 33 pg LAB MCHC(LOINC) MCHC 33 32 - 36 X10 3 LAB RDW/CV(LOINC) RDW/CV 15.2 12.0 - 15.6 % LAB PLATELET(LOINC ) PLATELET 130 Low 150 - 450 x10EE3/UL LAB MPV(LOINC) MPV 7.8 6.4 - 10.5 fl Result Comment: AUTOMATED DI FFERENTIAL LAB NEUT %(LOINC) NEUT % 61.4 46.0 - 76.0 % LAB LYMPH %(LOINC) LYMPH % 27.6 20.0 - 45.0 % LAB MONOS %(LOINC) MONOS % 7.5 0.0 - 10.0 % LAB EO %(LOINC) EO % 3.1 0.0 - 7.0 % LAB BASO %(LOINC) BASO % 0.3 0.0 - 2.0 % LAB Lymph #(LOINC) Lymph # 2.05 0.80 - 2.80 x10EE 3/UL LAB Neut #(LOINC) Neut # 4.56 1.50 - 7.10 x10EE3 /UL LAB [place] #(LOINC) [place] # 0.55 0.20 - 1.00 x10EE3 /UL LAB EO #(LOINC) EO # 0.23 0.00 - 0.50 x10EE3/U L LAB Baso #(LOINC) Baso # 0.03 0.00 - 0.10 x10EE3 /UL LAB MANUAL DIFF(LOINC) MANUAL DIFF N/A LAB MORPHOLOGY(CHANTE NC) MORPHOLOGY N/A Performed By: #### [id number] ## ## [place] [id number] ORDER SHEET (CPOE ONLY) Observed: 2023 1:30 PM Status: C Source: [facility] Order Sheet Order Sheet [place] [id number] 06/24/2024 Patient: KASI WARREN Sex: Male : 1970 Age: 53y MEASUREMENTS: Wt: 123.8 kg, Ht/Conrado: 70.0 in, BMI: 39.17 ALLERGIES: No known drug allergies MEDICATION/IV/DRIP/FLUID ORDERS Order Description Priority Entered Acknowledged Completed IV NS 0.9 %1000 mL (NOW x1) 14:34 06/24/2024 15:49 15:59 Cisco Urrutia D.O. 06/24/2024 06/24/2024 Ning He R.N. R.NKrystle KetorOLAC (Toradol) IVP30 mg 14:34 06/24/2024 15:49 16:00 (NOW x1) Cisco Urrutia D.O. 06/24/2024 06/24/2024 Ning He R.N. R.NKrystle Reason for ordering with alerts: Clinical consideration given --14:34 06/24/2024 Cisco Urrutia D.O. Benadryl IVP50 mg (NOW x1) 14:34 06/24/2024 15:49 15:59 Cisco Urrutia D.O. 06/24/2024 06/24/2024 Ning He R.N. R.N. Reglan IVP10 mg (NOW x1) 14:34 06/24/2024 15:49 15:59 Cisco Urrutia D.O. 06/24/2024 06/24/2024 Ning He, 1 of 2 Order Sheet R.N. R.N. LAB ORDERS Order Description Priority Entered Acknowledged Collected Completed CBC w Diff Stat Stat 14:34 06/24/2024 15:50 06/24/2024 16:11 06/24/2024 Edelmira Ross R.N. Tessa Miller, R.N. CMP Stat Stat 14:34 06/24/2024 15:50 06/24/2024 16:11 06/24/2024 Edelmira Ross R.N. Tessa Miller, R.Genny. CRP Stat Stat 14:34 06/24/2024 15:50 06/24/2024 16:11 06/24/2024 Edelmira Ross R.N. Tessa Miller, R.Samuel Flu Swab (Influenzae Stat 14:35 06/24/2024 15:50 06/24/2024 16:11 06/24/2024 AAg) Stat Edelmira Ross R.N. Tessa Miller R.NKrystle DIAGNOSTIC STUDY ORDERS Order Description Priority Entered Acknowledged Completed CT Brain wo IV Cont Stat Stat 14:34 06/24/2024 14:48 16:11 Cisco rUrutia D.O. 06/24/2024 06/24/2024 Ning He, NiyaNKrystle RKarol Reason for Study: Headache STAFF ORDERS Order Description Priority Entered Acknowledged Collected Completed [Electronically signed by Cisco Urrutia D.O. (06/28/2024 16:07 EDT)] 2 of 2 PHYS CODING SUMMARY ENROLLED NURSE ABST Observed: 06/24/2024 1:30 PM Status: C Source: [facility] Coding Summary Coding Summary [address] [address] [id number] 06/24/2024 Patient: KASI WARREN Sex: Male : 1970 Age: 53y ICD-10 Codes G43.909: Migraine, unspecified, not intractable, without status migrainosus G43.909: Migraine, unspecified, not intractable, without status migrainosus This is a partial abstract of information documented in the full record. Lmsw must use independent judgment in selecting codes. CPT copyright 2022 [employer]. All Rights Reserved. 1 of 1 NURSES CLINICAL REPORT (NOTES) Observed: 06/24/2024 1:30 PM Status: C Source: [facility] Nurse Narrative Nurse Clinical Narrative [address] [address] [id number] 06/24/2024 Patient: KASI WARREN Sex: Male : 1970 Age: 53y Disposition: Discharge to Home Disposition Decision Time: 16:54 06/24/2024 Departure Time: 17:13 06/24/2024 TRIAGE Arrived by private vehicle, and walking. Historian: spouse. Accompanied by family and spouse. Primary physician (Samm). ( Pt has a chronic history of migraines, he has been dealing with his for 2 weeks). Triage time: 13:32 06/24/2024. Acuity: LEVEL 3. Chief Complaint: HEADACHE and MIGRAINE HEADACHE. This started 2 weeks. Patient is on anticoagulation (blood thinner) therapy: includes aspirin and eliquis. SEPSIS SCREEN: NEGATIVE. SIRS criteria negative. No possible sources of infection. -- 13:50 06/24/24 PAVITHRA Clemons R.N. 13:48 06/24/24. BP: 143/85 MAP: 104. HR: 67. RR: 16. O2 saturation: 98% Temperature: 97.8 F. Pain level now 7/10. Describes the pain as pressure and "pain". Constant. -- 13:49 06/24/24 PAVITHRA Clemons R.N. Measurements: 13:50 06/24/24 Wt: 123.8 kg, Ht/Conrado: 70.0 in, BMI: 39.17 -- 13:50 06/24/24 GRUPOT Jane Clemons R.N. Medications: allopurinoL 100 mg tablet: 100 mg once a day . -- 13:34 06/24/24 PAVITHRA Clemons R.N. aspirin 81 mg capsule: 81 mg once a day . -- 13:35 06/24/24 PAVITHRA Clemons R.N. atorvastatin 40 mg tablet: 40 mg once a day . -- 13:35 06/24/24 GRUPOT Jane Clemons R.N. 1 of 4 Nurse Narrative lisinopriL 20 mg tablet: 20 mg once a day . -- 13:36 06/24/24 PAVITHRA Clemons R.N. tamsulosin 0.4 mg capsule: 0.4 mg once a day . -- 13:37 06/24/24 GRUPOT Jane Clemons R.N. ascorbic acid (vitamin C) 500 mg tablet: 500 mg once a day . -- 13:37 06/24/24 GRUPOT Jane Clemons R.N. carvediloL 25 mg tablet: 12.5 mg twice a day . -- 13:38 06/24/24 GRUPOT Jane Clemons R.N. Eliquis 5 mg tablet: 5 mg twice a day . -- 13:39 06/24/24 GRUPOT Jane Clemons R.N. gabapentin 300 mg capsule: 300 mg three times a day . -- 13:39 06/24/24 PAVITHRA Clemons R.N. cyclobenzaprine 5 mg tablet: 5 mg three times a day . -- 13:39 06/24/24 PAVITHRA Clemons R.N. Allergies: no known drug allergies -- 13:34 06/24/24 PAVITHRA Clemons R.N. Problems: CVA - Cerebrovascular Accident -- 13:40 06/24/24 GRUPOT Jane Clemons R.N. Hypertension: Active -- 13:40 06/24/24 GRUPOT Jane Clemons R.N. Migraine with aura: Active -- 13:40 06/24/24 GRUPOT Jane Clemons R.N. Gout -- 13:41 06/24/24 GRUPOT Jane Clemons R.N. Neuropathy: Active -- 13:42 06/24/24 PAVITHRA Clemons R.N. 13:32 06/24/24. Preferred pharmacy: [facility]. -- 13:50 06/24/24 PAVITHRA Clemnos R.N. ADDITIONAL SURGERIES: Previous Abdominal Surgery -- 13:42 06/24/24 PAVITHRA Clemons R.N. Hemorrhoidectomy -- 13:42 06/24/24 PAVITHRA Clemons R.N. History 13:32 06/24/24. PAST MEDICAL HX: Hypertension. Frequent headaches (weeks 2). Immunizations: up-to-date. SOCIAL HX: Never smoker. No alcohol use or drug use. The patient has not traveled outside the [place] Infectious disease exposure: No infectious disease exposure. ABUSE ASSESSMENT: The patient answered "yes" to the question(s) "Do you feel safe in your home?" and 2 of 4 Nurse Narrative "no" to the question(s) "Are you afraid to go home?". Abuse denied. SELF HARM ASSESSMENT: Self harm assessment was performed. The patient answered no to the question(s) "Have you recently felt down, depressed, or hopeless?" and "Do you have thoughts of harming or killing yourself?". FALL RISK ASSESSMENT: Fall risk assessment completed. Risk factors identified include patient impairment of cognition. -- 13:50 06/24/24 PAVITHRA Clemons R.N. Interventions 13:32 06/24/24. Identification band on patient. Advanced care plan discussed with patient. Patient does not have advanced directive. -- 13:50 06/24/24 EDT Jane Clemons R.N. PHYSICAL ASSESSMENT 14:16 06/24/24. Ambulatory to room. ( pt arrived pov with c/o migraine x2 weeks. rates pain /10. states he wakes up confused in the morning every day. alert and oriented at this time). GENERAL / NEURO / PSYCH: Alert. Oriented X 4. Appears in no acute distress. Speech within normal limits. HEENT: No facial asymmetry noted. Pupils equal, round and reactive to light. SKIN: Skin is warm and dry. -- 14:16 06/24/24 EDT Ning Reynolds R.N. NURSING PROGRESS NOTES 14:47 06/24/24. Patient walked back from CT with donor services technician. -- 14:47 06/24/24 EDT Jane Clemons R.N. 15:33 06/24/24. Site #1 started via IV in the right hand with a 20g angiocath; 2 attempts. Saline lock flushed with 5 mL saline. -- 15:38 06/24/24 EDT Aubrey Reynolds R.N. 15:58 06/24/24. IV NS 0.9 % 1000 mL started in bag#1 1000 mL at 999 mL/hr via Site# 1. Allergies verified and confirmed 5 rights. Via IV pump. IV patency established. IV site checked: no pain, redness, or swelling. IV flushed thoroughly pre-medication administration. Information reviewed. Verbalizes understanding. Completed per protocol. -- 15:59 06/24/24 PAVITHRA Reynolds R.N. 15:59 06/24/24. Reglan IVP 10 mg given via Site# 1. Allergies verified and confirmed 5 rights. IV patency established. IV site checked: no pain, redness, or swelling. IV flushed thoroughly pre-medication administration. -- 15:59 06/24/24 GRUPOT Ning Reynolds R.N. 15:59 06/24/24. Benadryl IVP 50 mg given via Site# 1. Allergies verified and confirmed 5 rights. IV patency established. IV site checked: no pain, redness, or swelling. IV flushed thoroughly pre-medication administration. Information reviewed. Verbalizes understanding. -- 15:59 06/24/24 PAVITHRA Reynolds R.N. 3 of 4 Nurse Narrative 15:59 06/24/24. KetorOLAC (Toradol) IVP 30 mg given via Site# 1. Allergies verified and confirmed 5 rights. IV patency established. IV site checked: no pain, redness, or swelling. IV flushed thoroughly pre-medication administration. Information reviewed. Verbalizes understanding. -- 16:00 06/24/24 PAVITHRA Reynolds R.N. DISPOSITION / DISCHARGE 13:48 06/24/24. BP: 143/85 MAP: 104. HR: 67. RR: 16. O2 saturation: 98% Temperature: 97.8 F. Pain level now 7/10. Describes the pain as pressure and "pain". Constant. -- 18:13 06/24/24 PAVITHRA Reynolds R.N. 17:10 06/24/24. IV NS 0.9 %: Medication Discontinued. bag #1 completed. Total amount infused: 1000 mL. -- 18:15 06/24/24 PAVITHRA Reynolds R.N. 17:10 06/24/24. KetorOLAC (Toradol) IVP: Medication Response. No adverse reaction. The patient feels better. -- 18:16 06/24/24 PAVITHRA Reynolds R.N. 17:10 06/24/24. Benadryl IVP: Medication Response. No adverse reaction. The patient feels better. -- 18:16 06/24/24 PAVITHRA Reynolds R.N. 17:10 06/24/24. Reglan IVP: Medication Response. No adverse reaction. The patient feels better. -- 18:16 06/24/24 PAVITHRA Reynolds R.N. 17:10 06/24/24. Site #1 removed upon discharge. Bandage applied. -- 18:17 06/24/24 PAVITHRA Reynolds R.N. Departure time: 17:13 06/24/2024. -- 18:14 06/24/24 PAVITHRA Reynolds R.N. 18:13 06/24/24. Condition at departure: improved and stable. No learning barriers present. Discharge instructions provided and reviewed with the patient and spouse. Activity restrictions reviewed. Patient and spouse verbalized understanding. Written instructions provided in Palestinian. The patient was discharged home and accompanied by spouse. The patient left ambulatory and via private vehicle. Spouse driving. -- 18:13 06/24/24 EDT Ning Reynolds R.N. (Electronically signed by Ning Reynolds R.N. 06/24/24 18:17:49 EDT) Generated by [facility] 4 of 4 PHYS CLINICAL REPORT AND ADDEN Observed: 06/24/2024 1:30 PM Status: C Source: [facility] Narrative Physician Clinical Narrative [facility] [address] [place] [address] [phone] 06/24/2024 Patient: KASI WARREN Sex: Male : 1970 Age: 53y Disposition: Discharge to Home Disposition Decision Time: 16:54 06/24/2024 Departure Time: 17:13 06/24/2024 Measurements Wt: 123.8 kg, Ht/Conrado: 70.0 in, BMI: 39.17 Initial Vital Sign Measured Time BP MAP HR RR O2Sat ETCO2 Temp Pain GCS RTS 13:48 06/24/2024 143/85 104 65 16 98% 97.8 F 7 Time Seen: 13:59 06/24/2024. Arrived- By private vehicle. Historian- patient. Independent historian- family. HISTORY OF PRESENT ILLNESS Chief Complaint: HEADACHE and MIGRAINE HEADACHE. Is still present. This started yesterday. It is described as similar to previous headaches, throbbing and diffuse. At its maximum, severity described as 7 / 10. Modifying factors: worsened by bright light; relieved by nothing. The patient has had photophobia. No associated nausea or vomiting. Similar symptoms previously. Patient has had similar symptoms many times. Recent medical care: The patient was seen recently at this facility. ( 53-year-old white male complaining of a diffuse generalized headache they states he had started yesterday got worse today. He denies any head trauma. He did go to [facility] today but when he got home he did not remember being a [facility] according to the . He then became somewhat confused did not recognize his . Although that confusion has since resolved. The Narrative did not notice any facial droop or slurred speech. Patient denies any nausea or vomiting. Has complained of some photophobia. Patient was seen here in November for the flu. Also for cellulitis in his leg which he was treated for as an outpatient. states that he did get a rhino virus infection in his blood back in December of this year and up having a stroke on December 29. Went to [facility] where he was transferred to [facility] and was on a ventilator for 7 days. He has complained of a diffuse generalized headache off and on ever since. Here today mainly because the is concerned because he exhibited the transient confusion. He does complain of some "tension" to the anterior aspect of left side of his neck. PCP is Dr. Kasi Quijano in [place] REVIEW OF SYSTEMS EARS: No ear pain. RESPIRATORY: No carbon monoxide exposure, difficulty breathing or cough. NOSE: No sinus pressure. SKIN: No tick bite or skin rash. NEUROLOGICAL: No head injury. CVS: No chest pain. GI: No abdominal pain or diarrhea. : No pain with urination. ENDO/HEME/LYMPH: No enlarged lymph nodes. MUSCULOSKELETAL: No back pain. THROAT: The patient has had a sore throat. CONSTITUTIONAL: No fever. The patient has had muscle aches. PAST HISTORY Hypertension. Neurological disease. History of chronic headaches. CVA December 29 of this year. No history of head injury, glaucoma or diabetes mellitus. CVA - Cerebrovascular Accident Gout Hypertension: [Active] Migraine with aura: [Active] Neuropathy: [Active] Surgeries: Hemorrhoidectomy Previous Abdominal Surgery Medications: allopurinoL 100 mg tablet: 100 mg once a day . ascorbic acid (vitamin C) 500 mg tablet: 500 mg once a day . aspirin 81 mg capsule: 81 mg once a day . atorvastatin 40 mg tablet: 40 mg once a day . carvediloL 25 mg tablet: 12.5 mg twice a day . cyclobenzaprine 5 mg tablet: 5 mg three times a day . 2 of 13 Narrative Eliquis 5 mg tablet: 5 mg twice a day . gabapentin 300 mg capsule: 300 mg three times a day . lisinopriL 20 mg tablet: 20 mg once a day . tamsulosin 0.4 mg capsule: 0.4 mg once a day . Allergies: no known drug allergies SOCIAL HISTORY Never smoker. No alcohol use or drug use. No recent travel. ADDITIONAL NOTES The nursing notes have been reviewed. PHYSICAL EXAM Appearance: Alert. No acute distress. Eyes: Photophobia present. Pupils equal, round and reactive to light. Eyes normal inspection. ENT: Ears normal. Nose normal. Pharynx normal. Neck: Normal inspection. Neck supple. CVS: Normal heart rate and rhythm. Heart sounds normal. Pulses normal. Respiratory: No respiratory distress. Painless inspiration. Breath sounds normal. Abdomen: Soft and nontender. No organomegaly. Skin: Skin warm and dry. Normal skin color. No rash. Extremities: Extremities exhibit normal ROM. No lower extremity edema. Neuro: Oriented X 3. Alert. Mood/affect normal. Speech normal. Cranial nerves normal (as tested). No motor deficit. No sensory deficit. Reflexes normal. LABS, X-RAYS, AND EKG CT Head: No acute disease. Laboratory Tests: CBC + DIFF Final Narrative DIMITRI: 06/24/2024 15:31:00 EDT MsgRcvd: 06/24/2024 16:02 EDT Lab Test Result Reference Status Received Comments 06/24/2024 16:02 CBC-COMPLETE CBC + DIFF Final EDT BLOOD COUNT 06/24/2024 16:02 WBC 7.4 x 10/UL 4.5 - 10.8 Final EDT 06/24/2024 16:02 RBC 4.66 x 10/UL 4.50 - 6.00 Final EDT 06/24/2024 16:02 HEMOGLOBIN 13.7 g/dl 13.0 - 17.5 Final EDT 06/24/2024 16:02 HEMATOCRIT 41.1 % 40.0 - 52.0 Final EDT 06/24/2024 16:02 MCV 88 fl 81 - 98 Final EDT 06/24/2024 16:02 MCH 29 pg 27 - 33 Final EDT 06/24/2024 16:02 MCHC 33 X10 3 32 - 36 Final EDT 06/24/2024 16:02 RDW/CV 15.2 % 12.0 - 15.6 Final EDT 130 x10/UL 06/24/2024 16:02 PLATELET 150 - 450 Final Below low normal EDT 06/24/2024 16:02 AUTOMATED MPV 7.8 fl 6.4 - 10.5 Final EDT DIFFERENTIAL 06/24/2024 16:02 NEUT % 61.4 % 46.0 - 76.0 Final EDT 06/24/2024 16:02 LYMPH % 27.6 % 20.0 - 45.0 Final EDT Narrative 06/24/2024 16:02 MONOS % 7.5 % 0.0 - 10.0 Final EDT 06/24/2024 16:02 EO % 3.1 % 0.0 - 7.0 Final EDT 06/24/2024 16:02 BASO % 0.3 % 0.0 - 2.0 Final EDT 06/24/2024 16:02 Lymph # 2.05 x10/UL 0.80 - 2.80 Final EDT 06/24/2024 16:02 Neut # 4.56 x10/UL 1.50 - 7.10 Final EDT 06/24/2024 16:02 [place] # 0.55 x10/UL 0.20 - 1.00 Final EDT 06/24/2024 16:02 EO # 0.23 x10/UL 0.00 - 0.50 Final EDT 06/24/2024 16:02 Baso # 0.03 x10/UL 0.00 - 0.10 Final EDT 06/24/2024 16:02 MANUAL DIFF N/A New Order EDT 06/24/2024 16:02 MORPHOLOGY N/A New Order EDT C-REACTIVE PROTEIN Final DIMITRI: 06/24/2024 15:31:00 EDT MsgRcvd: 06/24/2024 16:19 EDT Lab Test Result Reference Status Received Comments 06/24/2024 16:19 CRP 0.60 mg/dl 0.00 - 0.90 Final EDT CMP with eGFR Final Narrative DIMITRI: 06/24/2024 15:31:00 EDT MsgRcvd: 06/24/2024 16:19 EDT Lab Test Result Reference Status Received Comments COMPREHENSIVE 06/24/2024 CMP with eGFR Final METABOLIC 16:19 EDT PANEL 06/24/2024 SODIUM 141 mmol/l 136 - 145 Final 16:19 EDT 06/24/2024 POTASSIUM 4.5 mmol/L 3.5 - 5.1 Final 16:19 EDT 108 mmol/L 06/24/2024 CHLORIDE Above high 98 - 107 Final 16:19 EDT normal 06/24/2024 CO2 24.5 mmol/L 21.0 - 32.0 Final 16:19 EDT 06/24/2024 GLUCOSE 92 mg/dl 74 - 106 Final 16:19 EDT 25 mg/dl 06/24/2024 BUN Above high 7 - 18 Final 16:19 EDT normal 1.46 mg/dl 06/24/2024 CREATININE Above high 0.70 - 1.30 Final 16:19 EDT normal 14 U/L 06/24/2024 AST/SGOT 15 - 37 Final Below low normal 16:19 EDT 164 U/L 06/24/2024 ALK PHOS Above high 46 - 116 Final 16:19 EDT normal 06/24/2024 CALCIUM 9.0 mg/dl 8.5 - 10.1 Final 16:19 EDT 6 of Narrative TOTAL 6.2 g/dl 06/24/2024 6.4 - 8.2 Final PROTEIN Below low normal 16:19 EDT 3.0 g/dL 06/24/2024 ALBUMIN 3.4 - 5.0 Final Below low normal 16:19 EDT 06/24/2024 GLOBULIN 3.2 G/DL 1.5 - 3.8 Final 16:19 EDT 06/24/2024 A/G RATIO 0.9 0.9 - 1.6 Final 16:19 EDT 06/24/2024 TOTAL BILI 0.5 mg/dl 0.2 - 1.0 Final 16:19 EDT 06/24/2024 B/C RATIO 17 ratio 0 - 30 Final 16:19 EDT 06/24/2024 ALT/SGPT 17 U/L 16 - 63 Final 16:19 EDT 06/24/2024 ANION GAP 13 mmol/L 10 - 20 Final 16:19 EDT 06/24/2024 AGE 53 years Final 16:19 EDT 51 ML/MINUTE 06/24/2024 eGFR 60 - 999 Final Below low normal 16:19 EDT 7 of Narrative ACCORDING TO THE NATIONAL KIDNEY DISEASE EDUCATION PROGRAM(NKDE), A NORMAL eGFR IS A VALUE GREATER THAN OR EQUAL TO 60 ML/MIN/1.73 SQ METERS. 06/24/2024 CHRONIC KIDNEY eGFR(AA) >60 ML/MINUTE 60 - 999 Final 16:19 EDT DISEASE: <60mL/MIN/1.73 SQ METERS KIDNEY FAILURE: <15mL/MIN/1.73 SQ METERS THIS TEST SHOULD ONLY BE USED FOR PATIENTS 18 YEARS OF AGE AND OLDER. INFLUENZA VIRUS RAPID A/B Final DIMITRI: 06/24/2024 15:52:00 EDT MsgRcvd: 06/24/2024 16:24 EDT Lab Test Result Reference Status Received Comments NEGATIVE 06/24/2024 INFLUENZA A Final [NEGATIVE 16:24 EDT NEGATIVE 06/24/2024 INFLUENZA B Final [NEGATIVE 16:24 EDT 8 of 13 Narrative INTERNAL 06/24/2024 PASS Final NEG QC 16:24 EDT INTERNAL 06/24/2024 PASS Final POS QC 16:24 EDT EXTERNAL QC 06/24/2024 YES Final DONE? 16:24 EDT 9 of 13 Narrative A NEGATIVE TEST RESULT DOES NOT EXCLUDE INFECTION WITH INFLUENZA A OR B. THEREFORE, THE RESULTS OBTAINED FROM THIS FLU TEST SHOULD BE USED IN CONJUCTION WITH CLINICAL FINDINGS TO MAKE AN ACCURATE DIAGNOSIS. A POSITIVE RESULT DOES NOT RULE OUT CO-INFECTIONS WITH OTHER PATHOGENS OR IDENTIFY ANY SPECIFIC INFLUENZA A VIRUS 06/24/2024 SEND TO IC? NO Final SUBTYPE.CO-INFECTION 16:24 EDT WITH INFLUENZA A AND B IS RARE. IT IS RECOMMENDED THAT "DUAL POSITIVE" RESULTS BE CONFIRMED BY VIRAL CULTURE OR AN FDA-CLEARED INFLUENZA A AND B MOLECULAR ASSAY. INDIVIDUALS WHO HAVE RECEIVED NASALLY ADMINISTERED INFLUENZA A VACCINE MAY TEST Narrative RESULT 06/24/2024 NO Final CRITICAL? 16:24 EDT Diagnostic Study Tests: CT BRAIN W/O CONTRAST Final EXAM Date: 06/24/2024 15:57:00 EDT MsgRcvd: 06/24/2024 16:01 EDT [place] [address] Patient: KASI WARREN Phone#: : 1970 Age: 53 Gender: M Pt. Type: ER Account: [id number] Location: [facility] Ordering: CISCO URRUTIA Exam Date: 06/24/2024/14:42 Family Phys: Charge Code: 630463 Physician: Shannon Order #: [id number] Dose#: 52.3mGy PROCEDURE: CT BRAIN WITHOUT CONTRAST COMPARISON: [facility], CT, BRAIN W/O CON, 06/14/2024, 17:50. INDICATIONS: Migraine. TECHNIQUE: CT images were obtained without contrast material. All CT scans at this facility use dose modulation, iterative reconstruction, and/or weight based dosing when appropriate to reduce radiation dose to as low as reasonably achievable. IV CONTRAST: No IV contrast used,0.0ml TOTAL DOSE: 52.3mGy CTDIvol(mGy) FINDINGS: CEREBRUM: No edema, hemorrhage, mass, acute infarction, or inappropriate atrophy. CEREBELLUM: No edema, hemorrhage, mass, acute infarction, or inappropriate atrophy. BRAINSTEM: No edema, hemorrhage, mass, acute infarction, or inappropriate atrophy. CSF SPACES: Ventricles, cisterns, and sulci are appropriate for age. No hydrocephalus, subarachnoid hemorrhage, or mass. SKULL: No mass or other significant visible lesion. SINUSES: Limited views demonstrate no significant mucosal thickening or fluid. ORBITS: Limited views are unremarkable. 11 of 13 Narrative OTHER: Negative. CONCLUSION: 1. There is no evidence of acute intracranial abnormality. Dictated by: Geena Hughes MD on 06/24/2024 at 15:00 Approved by: Geena Hughes MD on 06/24/2024 at 15:57 PROGRESS AND PROCEDURES Course of Care: 16:07. Patient is stable. The patient's symptoms are now gone. Physical exam findings are improved. MEDICAL DECISION MAKING: Ordered tests include a CT of the head and chemistries. Abnormal tests include the complete blood count. The patient has been stable and has improved. Non-narcotics and antiemetics were given. The pain and vomiting have resolved. The exam got better. Disposition: Condition: good. Discharge decision based on the following: patient's condition is stable; patient's condition is improved; patient's exam is stable; patient's exam is improved; no seriously abnormal test results; stable condition on multiple repeat evaluations; improving condition on multiple repeat evaluations; social support is adequate; transportation is available; follow-up is available; clinical impression is consistent with outpatient treatment. CLINICAL IMPRESSION Recurrent migraine headache without aura. Acute migraine headache without aura- poorly controlled. DISCHARGE INSTRUCTIONS No strenuous activity. Warnings: GENERAL WARNINGS: Return or contact your physician immediately if your condition worsens or changes unexpectedly, if not improving as expected, or if other problems arise. Prescription Medications: hrllrduxra-zwaqtqzyozqly-tvnowodv 50 mg-325 mg-40 mg capsule: Take 1 capsule by mouth every six hours as needed for pain for 5 days, dispense 20 capsule. Refills 0. Pharmacy: [facility] [id number] [place] [address]. Narrative ondansetron 4 mg disintegrating tablet: Take 1 tablet on tongue every eight hours for nausea/vomiting for 5 days, dispense 15 tablet. Refills 0. Pharmacy: [facility] [id number] [place] [address]. Follow-up: Follow up with your doctor in four days even if well. Call for an appointment. Reason for referral: evaluation and treatment. Summary of care provided to patient and family via paper. kasi quijanoelroy, [place]. (Electronically signed by Cisco Urrutia D.O. 06/28/24 16:07:41 EDT) Generated by [facility] MED ADMINISTRATION DETAIL Observed: 06/12 1:30 PM Status: C Source: [facility] Biological Lab Technician Medication Administration Record [address] [place] [address] [id number] 06/24/2024 Patient: KASI WARREN Sex: Male : 1970 Age: 53y MEASUREMENTS: Wt: 123.8 kg, Ht/Conrado: 70.0 in, BMI: 39.17 ALLERGIES: No known drug allergies Medication Ordered Medication Administration Date/Time IV NS 0.9 % 1000 15:58 06/24 IV NS 0.9 % 1000 mL started in bag#1 1000 mL at Started mL (NOW x1) 999 mL/hr via Site# 1. Allergies verified and confirmed 5 rights. Via 15:58 06/24/2024 IV pump. IV patency established. IV site checked: no pain, redness, Ning Reynolds R.Genny. or swelling. IV flushed thoroughly pre-medication administration. Stopped Information reviewed. Verbalizes understanding. Completed per 17:10 06/24/2024 protocol. - 15:59 Ning Reynolds R.N. Ning Reynolds R.N. Scanned 17:10 06/24 Medication Discontinued: bag #1 completed. Total amount infused: 1000 mL. - 18:15 Ning Reynolds R.N. KetorOLAC 15:59 06/24 KetorOLAC (Toradol) IVP 30 mg given via Site# 1. Given (Toradol) IVP 30 mg Allergies verified and confirmed 5 rights. IV patency established. IV 15:59 06/24/2024 (NOW x1) site checked: no pain, redness, or swelling. IV flushed thoroughly José He.N. pre-medication administration. Information reviewed. Verbalizes Scanned understanding. - 16:00 Niya HeNKrystle 17:10 06/24 Medication Response: No adverse reaction. The patient feels better. - 18:16 Ning Reynolds R.N. 1 of 2 Biological Lab Technician Medication Ordered Medication Administration Date/Time Benadryl IVP 50 mg 15:59 06/24 Benadryl IVP 50 mg given via Site# 1. Allergies Given (NOW x1) verified and confirmed 5 rights. IV patency established. IV site 15:59 06/24/2024 checked: no pain, redness, or swelling. IV flushed thoroughly José He.N. pre-medication administration. Information reviewed. Verbalizes Scanned understanding. - 15:59 Ning Reynolds R.N. 17:10 06/24 Medication Response: No adverse reaction. The patient feels better. - 18:16 Ning Reynolds R.N. Reglan IVP 10 mg 15:59 06/24 Reglan IVP 10 mg given via Site# 1. Allergies verified Given (NOW x1) and confirmed 5 rights. IV patency established. IV site checked: no 15:59 06/24/2024 pain, redness, or swelling. IV flushed thoroughly pre-medication José He.NKrystle administration. - 15:59 Ning Reynolds R.N. Scanned 17:10 06/24 Medication Response: No adverse reaction. The patient feels better. - 18:16 Ning Reynolds R.N. 2 of 2 VISIT SUMMARY Observed: 06/24/2024 1:30 PM Status: C Source: [facility] Visit Overview Visit Overview [address] [place] [address] [id number] 06/24/2024 [id number] Sex: Male : 1970 Age: 53y 06/28/2024 04:07 PM EDT ED Arrival:13:30 06/24/2024 EDT Status: Recent Travel:no Language:eng Adv Directive:No Isolation Status: Ethnicity:N Fall Risk:risk Infectious Disease Exposure:no Measurements:5'10" / 177.8 Self-Harm Status:risk Sepsis Screen:negative cm 273.0 lb / 123.8 kg Chief Complaint:HEADACHE, MIGRAINE HEADACHE, (2 weeks), (Quijano), and (Pt has a chronic history of migraines, he has been dealing with his for 2 weeks) ALLERGIES No Known Drug Allergies HOME MEDICATIONS allopurinoL 100 mg tablet: 100 mg once a day . ascorbic acid (vitamin C) 500 mg tablet: 500 mg once a day . aspirin 81 mg capsule: 81 mg once a day . 1 4 Visit Overview atorvastatin 40 mg tablet: 40 mg once a day . carvediloL 25 mg tablet: 12.5 mg twice a day . cyclobenzaprine 5 mg tablet: 5 mg three times a day . Eliquis 5 mg tablet: 5 mg twice a day . gabapentin 300 mg capsule: 300 mg three times a day . lisinopriL 20 mg tablet: 20 mg once a day . tamsulosin 0.4 mg capsule: 0.4 mg once a day . PAST MEDICAL HISTORY / PROBLEMS CVA - Cerebrovascular Accident Frequent headaches (weeks 2) Gout History of chronic headaches Hypertension Immunizations: up-to-date Migraine with aura: Active Neurological disease Neuropathy: Active PAST SURGICAL HISTORY Hemorrhoidectomy Previous Abdominal Surgery SOCIAL HISTORY Smoking status: No Alcohol use: No Drug use: No ED COURSE MEDICATIONS GIVEN IN EMERGENCY DEPARTMENT 15:58 06/24/24 IV NS 0.9 % 1000 mL 999 mL/hr 15:59 06/24/24 Reglan IVP 10 mg 15:59 06/24/24 Benadryl IVP 50 mg 15:59 06/24/24 KetorOLAC (Toradol) IVP 30 mg 2 of 4 Visit Overview IV SITE INFORMATION INTAKE OUTPUT REASSESMENT (most recent) 14:16 06/24/24. Ambulatory to room. ( pt arrived pov with c/o migraine x2 weeks. rates pain 7/10. states he wakes up confused in the morning every day. alert and oriented at this time). GENERAL / NEURO / PSYCH: Alert. Oriented X 4. Appears in no acute distress. Speech within normal limits. HEENT: No facial asymmetry noted. Pupils equal, round and reactive to light. SKIN: Skin is warm and dry. VITAL SIGNS First Vitals Last Vitals Temp 13:48 06/24/24 97.8 F Temp 13:48 06/24/24 97.8 F BP 13:48 06/24/24 143/85 BP 13:48 06/24/24 143/85 HR 13:48 06/24/24 65 HR 13:48 06/24/24 67 RR 13:48 06/24/24 16 RR 13:48 06/24/24 16 O2 Sat 13:48 06/24/24 98% O2 Sat 13:48 06/24/24 98% Pain 13:48 06/24/24 7 Pain 13:48 06/24/24 7 ETCO2 13:48 06/24/24 ETCO2 13:48 06/24/24 GCS 13:48 06/24/24 GCS 13:48 06/24/24 RTS 13:48 06/24/24 RTS 13:48 06/24/24 PROCEDURES NURSING INTERVENTIONS LABS / STUDIES LABS / STUDIES ORDERED CBC w Diff CMP CRP CT Brain wo IV Cont Flu Swab (Influenzae AAg) CLINICAL IMPRESSION 3 of 4 Visit Overview ACUTE MIGRAINE HEADACHE WITHOUT AURA- POORLY CONTROLLED RECURRENT MIGRAINE HEADACHE WITHOUT AURA 4 of 4 FACILITY CODING SUMMARY Observed: 2023 1:30 PM Status: C Source: [facility] Facility Coding Facility Coding Summary [facility] [address] [place] [address] [id number] 06/24/2024 Patient: KASI WARREN Sex: Male : 1970 Age: 53y Providers: Cisco Urrutia D.O. DIAGNOSTIC WORKUP Chief Complaint HEADACHE and MIGRAINE HEADACHE. -- Cisco Urrutia D.O. Principal Diagnosis Acute migraine headache without aura- poorly controlled. -- Cisco Urrutia D.O. Recurrent migraine headache without aura. -- Cisco Urrutia D.O. ICD-10 Codes G43.909: Migraine, unspecified, not intractable, without status migrainosus G43.909: Migraine, unspecified, not intractable, without status migrainosus PROCEDURES Procedures from Providers: Procedures from Nurses/Facility: IV Hydration (CPT: 06754) IV Push KetorOLAC (Toradol) IVP (CPT: 93010) IV Push Benadryl IVP (CPT: 52951) IV Push Reglan IVP (CPT: 34847) 1 of 2 Facility Coding SUPPLIES [facility] 73398-75 This is a partial abstract of information documented in the full record. Lmsw must use independent judgment in selecting codes. CPT copyright 2022 [employer]. All Rights Reserved. 2 of 2 [facility] Observed: 06/24/2024 1:30 PM Status: C Source: [address] [address] [id number] 06/24/2024 Patient: KASI WARREN Sex: Male : 1970 Age: 53y Facility Professional Category Item Description Code Code Quantity Fee Total Nurse/E/M EMERGENCY 882543 1 $0.00 $0.00 DEPT VISIT HIGH SEVERITYFUNCJ (27590-91) Nurse/IV/IM/Infusions Hydration 108670 1 $0.00 $0.00 additional hour (17074) Nurse/IV/IM/Infusions IVP additional 709328 2 $0.00 $0.00 push (38428) Nurse/IV/IM/Infusions IVP initial (83944) 682736 1 $0.00 $0.00 Grand $0.00 Total Providers Cisco Urrutia D.O. Chief Complaint HEADACHE and MIGRAINE HEADACHE. 1 of 2 [facility] Principal Diagnosis Recurrent migraine headache without aura. Acute migraine headache without aura- poorly controlled. ICD-10 Codes G43.909: Migraine, unspecified, not intractable, without status migrainosus G43.909: Migraine, unspecified, not intractable, without status migrainosus 2 of 2 PHYSICIAN DISCHARGE REPORT Observed: 1:30 PM Status: C Source: [facility] Discharge Instructions Discharge Summary [address] [address] [id number] 06/24/2024 [facility]: [id number] Sex: Male : 1970 Age: 53y Thank you for visiting [facility]. You have been evaluated today by Cisco Urrutia D.O. for the following condition(s): Principal Diagnosis Recurrent migraine headache without aura. Acute migraine headache without aura- poorly controlled. INSTRUCTIONS No strenuous activity. Warnings: GENERAL WARNINGS: Return or contact your physician immediately if your condition worsens or changes unexpectedly, if not improving as expected, or if other problems arise. Prescription Medications: krfdheuzus-xxmfzrcvcdzmz-ozvewkoi 50 mg-325 mg-40 mg capsule: Take 1 capsule by mouth every six hours as needed for pain for 5 days, dispense 20 capsule. Refills 0. Pharmacy: [facility] [id number] [place] [address]. ondansetron 4 mg disintegrating tablet: Take 1 tablet on tongue every eight hours for nausea/vomiting for 5 days, dispense 15 tablet. Refills 0. Pharmacy: [facility] [address] [place] [address]. Follow-up: 1 of 6 Discharge Instructions Follow up with your doctor in four days even if well. Call for an appointment. Reason for referral: evaluation and treatment. Summary of care provided to patient and family via paper. kasi quij[place], [place]. You have been given the following additional information: Migraine Headache Patient Signature Facility Medical Services Assistant Date/Time General Instructions with ExitWriter [facility] [address] [place] [address] [phone] 06/24/2024 Patient: KASI WARREN Sex: Male : 1970 Age: 53y Thank you for visiting [facility]. You have been evaluated today by Cisco Urrutia D.O. for the following condition(s): Principal Diagnosis Recurrent migraine headache without aura. Acute migraine headache without aura- poorly controlled. INSTRUCTIONS No strenuous activity. Warnings: GENERAL WARNINGS: Return or contact your physician immediately if your condition worsens or changes unexpectedly, if not improving as expected, or if other problems arise. Prescription Medications: 2 of 6 Discharge Instructions mhefpgwtat-ndpdlipybytgf-cbhtcovo 50 mg-325 mg-40 mg capsule: Take 1 capsule by mouth every six hours as needed for pain for 5 days, dispense 20 capsule. Refills 0. Pharmacy: [facility] [address] [place] [address]. ondansetron 4 mg disintegrating tablet: Take 1 tablet on tongue every eight hours for nausea/vomiting for 5 days, dispense 15 tablet. Refills 0. Pharmacy: [facility] [address] [place] [address]. Follow-up: Follow up with your doctor in four days even if well. Call for an appointment. Reason for referral: evaluation and treatment. Summary of care provided to patient and family via paper. kasi [place], [place]. ADDITIONAL INFORMATION Migraine Headache A migraine headache is an often severe type of headache. It's different from other types of headaches in that symptoms other than pain occur with the it. For instance, a classic migraine headache means visual symptoms (or aura) such as flashes of light, blind spots or other vision changes, warns you a headache is coming on. Nausea and vomiting, lightheadedness, sensitivity to light or sound, and other visual disturbances are common migraine symptoms. The pain may last from a few hours to several days. It's not clear why migraines occur, but certain factors called triggers can raise the risk of having a migraine attack. A migraine may be triggered by emotional stress or depression, or by hormone changes during the menstrual cycle. Other triggers include certain control pills, overuse of migraine medicines, alcohol or caffeine, foods with tyramine such as aged cheese and wine, eyestrain, weather changes, missed meals, or too little or too much sleep. Home care Follow these tips when taking care of yourself at home: Don't drive yourself home if you were given pain medicine for your headache or are having visual symptoms. Instead, have someone else drive you home. Try to sleep when you get home. You should feel much better when you wake up. Cold can help ease migraine symptoms. Put an ice pack wrapped in a thin towel on your forehead or at the base of your skull. Put heat on the back of your neck to help ease any neck spasm. 3 of 6 Discharge Instructions Drink only clear liquids or eat a light diet until your symptoms get better. This will help you prevent nausea and vomiting. How to prevent migraines Pay attention to what seems to trigger your headache. Try to stay away from the triggers when you can. If you have headaches often, consider keeping a headache diary. In it, write down what you were doing, feeling, or eating in the hours before each headache. Show this to your healthcare provider to help find the cause of your headaches. If stress seems to be a trigger for your headaches, figure out what is causing stress in your life. Learn new ways to handle your stress. Ideas include regular exercise, biofeedback, self-hypnosis, yoga, and meditation. Talk with your healthcare provider to find out more information about managing stress. Many books and digital media are also available on this subject. Tyramine is a substance found in many foods. It can trigger a migraine in some people. These foods contain tyramine: Chocolate Yogurt All cheeses, but especially aged cheeses Smoked or pickled fish and meat, including tarango, caviar, bologna, pepperoni, and salami Liver Avocados Bananas Figs Raisins Red wine Try staying away from these foods for 1 to 2 months to see if you have fewer headaches. How to treat future headaches Take time out at the first sign of a headache, if possible. Find a quiet, dark, comfortable place to sit or lie down. Let yourself relax or sleep. Put an ice pack wrapped in a thin towel on your forehead or on the area of greatest pain. A heating pad and massage may help if you are having a muscle spasm and tightness in your neck. 4 of 6 Discharge Instructions If you have been prescribed a medicine to stop a migraine headache, use this at the first warning sign of the headache for best results. First signs may be an aura or pain. If you have been prescribed a medicine to prevent the headaches, it's important to take the medicine as directed. Many of these medicines may take a few weeks to start preventing headaches, so it's important to not give up on them right away. If you continue to have just as many headaches after taking these medicines for a while, talk with your doctor to see if the dose needs to be changed or if a different medicine is advised. If you need to take medicine often for your migraine, talk with your healthcare provider about other ways to prevent your headaches. Follow-up care Follow up with your healthcare provider, or as advised. Talk with your provider if you have frequent headaches. He or she can figure out a treatment plan. Ask if you can have medicine to take at home the next time you get a bad headache. This may keep you from having to visit the emergency department in the future. You may need to see a headache specialist (neurologist) if you continue to have headaches. When to seek medical advice Call your healthcare provider right away if any of these occur: Your head pain gets worse, or doesn't get better within 24 hours You can't keep liquids down (repeated vomiting) Pain in your sinuses, ears, or throat Fever of 100.4 F (38 C) or higher, or as directed by your healthcare provider Stiff neck Extreme drowsiness, confusion, or fainting Dizziness, or dizziness with spinning sensation (vertigo) Weakness or trouble feeling in an arm or leg, or on one side of your face Trouble talking or seeing Activities [address] [address] [phone] 06/24/2024 Patient: BRIANAKASI 5 of 6 Discharge Instructions Sex: Male : 1970 Age: 53y You have been given the following instructions regarding activity, work, and/or school. No strenuous activity. Facility Medical Services Assistant 6 of 6 PROGRESS Observed: 06/19/2024 10:11 AM Status: COMPLETED Source: [facility] Patient with continued heada ches, prompting multiple ED visits. Will refer to neurology for headache management, as we are a transitional clinic for secondary stroke prevention only. AUTHENTICATED BY JANE GALLOWAY, ON 06/19/2024 10:12:23 CT BRAIN W/O CONTRAST Observed: 06/15/20 9:48 AM Status: F Source: [address] [address] Patient: KASI WARREN Phone#: : 1970 Age: 53 Gender: M Pt. Type: ER Account: [id number] Location: 052 Ordering: DR. LOREN REVELES Exam Date: 06/14/2024/17:50 Family Phys: Charge Code: 216778 Physician: Shannon Order #: [id number] Dose#: [id number] PROCEDURE: CT BRAIN WITHOUT CONTRAST COMPARISON: [facility], CT, BRAIN W/O CON, 02/02/2024, 8:18. INDICATIONS: Headache. TECHNIQUE: CT images were obtained without contrast material. All CT scans at this facility use dose modulation, iterative reconstruction, and/or weight based dosing when appropriate to reduce radiation dose to as low as reasonably achievable. IV CONTRAST: No IV contrast used,0.0ml TOTAL DOSE: CTDIvol(mGy) FINDINGS: Patient motion somewhat limits the evaluation. CEREBRUM: No edema, hemorrhage, mass, or inappropriate atrophy. CEREBELLUM: No edema, hemorrhage, mass, or inappropriate atrophy. BRAINSTEM: No edema, hemorrhage, mass, or inappropriate atrophy. CSF SPACES: Ventricles, cisterns, and sulci are appropriate for age. No hydrocephalus, subarachnoid hemorrhage, or mass. SKULL: No mass or other significant visible lesion. SINUSES: Limited views demonstrate no significant mucosal thickening or fluid. ORBITS: Limited views are unremarkable. OTHER: Atherosclerotic calcifications of the intracranial arteries. CONCLUSION: 1. No appreciable acute intracranial abnormality or interval change. Note: An acute ischemic may not be initially evident on CT. Dictated by: Linda Worthy MD on 06/15/2024 at 9:42 Approved by: Linda Worthy MD on 06/15/2024 at 9:47 BMP WITH EGFR Collected: 06/14/2024 5:00 PM Status: F Source: [facility] TYPE CODE TESTS RESULT OUT OF RANGE REFERENCE UNITS LAB BMP with eGFR(LOINC) BMP with eGFR Result Comment: BASIC METABO LIC PANEL LAB SODIUM(LOINC) SODIUM 143 136 - 145 mmol/l LAB POTASSIUM(LOINC ) POTASSIUM 4.0 3.5 - 5.1 mmol/L LAB CHLORIDE(LOINC) CHLORIDE 105 98 - 107 mmol/L LAB CO2(LOINC) CO2 27.2 21.0 - 32.0 mmol/L LAB GLUCOSE(LOINC) GLUCOSE 105 74 - 106 mg/dl LAB BUN(LOINC) BUN 17 7 - 18 mg/dl LAB CREATININE(LOIN C) CREATININE 1.59 High 0.70 - 1.30 mg/dl LAB CALCIUM(LOINC) CALCIUM 8.8 8.5 - 10.1 mg/dl LAB ANION GAP(LOINC) ANION GAP 15 10 - 20 mmol/L LAB AGE(LOINC) AGE 53 years LAB eGFR(LOINC) eGFR 46 Low 60 - 999 ML/MINUTE LAB eGFR(AA)(LOINC) eGFR(AA) 56 Low 60 - 999 ML/MIN IONE Result Comment: ACCORDING TO THE NATIONAL KIDNEY DISEASE EDUCATION PROGRAM(NKDE), A NORMAL eGFR IS A VALUE GREATER THAN OR EQUAL TO 60 ML/MIN/1.73 SQ METERS. CHRONIC KIDNEY DISEASE: <60mL/MIN/1.73 SQ METERS KIDNEY FAILURE: <15mL/MIN/1.73 SQ METERS THIS TEST SHOULD ONLY BE USED FOR PATIENTS 18 YEARS OF AGE AND OLDER. Performed By: #### [id number] ## ## [facility],[address] [place] [address] CBC + DIFF Collected: 4 5:00 PM Status: F Source: [facility] TYPE CODE TESTS RESULT OUT OF RANGE REFERENCE UNITS LAB CBC + DIFF(LOINC) CBC + DIFF Result Comment: CBC-COMPLETE BLOOD COUNT LAB WBC(LOINC) WBC 10.2 4.5 - 10.8 x 10EE3/UL LAB RBC(LOINC) RBC 4.43 Low 4.50 - 6.00 x 10EE6/UL LAB HEMOGLOBIN(CHANTE NC) HEMOGLOBIN 12.6 Low 13.0 - 17.5 g/dl LAB HEMATOCRIT(CHANTE NC) HEMATOCRIT 37.7 Low 40.0 - 52.0 % LAB MCV(LOINC) MCV 85 81 - 98 fl LAB MCH(LOINC) MCH 28 27 - 33 pg LAB MCHC(LOINC) MCHC 33 32 - 36 X10 3 LAB RDW/CV(LOINC) RDW/CV 15.1 12.0 - 15.6 % LAB PLATELET(LOINC ) PLATELET 185 150 - 450 x10EE3/UL LAB MPV(LOINC) MPV 7.5 6.4 - 10.5 fl Result Comment: AUTOMATED DI FFERENTIAL LAB NEUT %(LOINC) NEUT % 70.8 46.0 - 76.0 % LAB LYMPH %(LOINC) LYMPH % 19.7 Low 20.0 - 45.0 % LAB MONOS %(LOINC) MONOS % 5.9 0.0 - 10.0 % LAB EO %(LOINC) EO % 3.2 0.0 - 7.0 % LAB BASO %(LOINC) BASO % 0.4 0.0 - 2.0 % LAB Lymph #(LOINC) Lymph # 2.01 0.80 - 2.80 x10EE 3/UL LAB Neut #(LOINC) Neut # 7.24 High 1.50 - 7.10 x10EE3 /UL LAB [place] #(LOINC) [place] # 0.61 0.20 - 1.00 x10EE3 /UL LAB EO #(LOINC) EO # 0.33 0.00 - 0.50 x10EE3/U L LAB Baso #(LOINC) Baso # 0.04 0.00 - 0.10 x10EE3 /UL LAB MANUAL DIFF(LOINC) MANUAL DIFF N/A LAB MORPHOLOGY(CHANTE NC) MORPHOLOGY N/A Performed By: #### [id number] ## ## [place] [address] PROTHROMBIN TIME AND INR Collected: 06/14/2024 5:00 P M Status: F Source: [facility] TYPE CODE TESTS RESULT OUT OF RANGE REFERENCE UNITS LAB PROTHROMBIN TIME AND INR(LOINC) PROTHROMBIN TIME AND INR Result Comment: PROTHROMBIN TIME AND INR LAB PT-COUMADIN(CHANTE NC) PT-COUMADIN 15.6 High 9.3 - 14.1 sec LAB INR(LOINC) INR 1.4 High 0.8 - 1.2 Result Comment: THE HEMOS IL THROMBOPLASTIN REAGENT USED IN THE PROTHROMBIN TIME TEST INTERACTS WITH THE DRUG CUBICIN (DAPTOMYCIN) AND WILL RESULT IN FALSELY ELEVATED PT / INR RESULTS INR INTERPRETATION INR INDICATION PREVENTION AND TREATMENT OF THROMBOEMBOLISM ASSOCIATED WITH: 2.0 - 3.0 ATRIAL FIBRILLATION, BIOPROSTHETIC HEART VALVES, PULMONARY EMBOLISM, VENOUS THROMBOSIS, SYSTEMIC EMBOLISM POST MYOCARDIAL INFARCTION 2.5 - 3.5 MECHANICAL HEART VALVES Performed By: #### [id number] ## ## [place] [address] ALLERGIES DATE TYPE / CODE NAME / CODE REACTION SEVERITY SOURCE Miscellaneous Allergy/480259272(SNO MED CT) No Known Allergies Moderate (Severity Modifier) (Qualifier Value) [facility]SNO MED CT) NO KNOWN ALLERGIES [facility] ENCOUNTERS ADMIT/DISCHARGE ACCOUNT NUMBER ADMITTING ENCOUNTER CLASS LOCATION SOURCE 06/10/2025 [id number] Ambulatory ABuilding:[facility] 06/05/2025 [id number] Ambulatory ABuilding:[facility] 06/04/2025/06/04/20 [id number] Ambulatory CHBuilding: [facility] 05/31/2025/05/31/20 [id number] Ambulatory ABuilding:[facility] 05/24/2025/05/24/20 [id number] Ambulatory ABuilding:[facility] 05/21/2025/05/21/20 [id number] Ambulatory CHBuilding: [facility] 05/17/2025/05/17/20 [id number] Ambulatory ABuilding:[facility] 05/15/2025/05/15/20 [id number] Ambulatory CHBuilding: [facility] 05/06/2025 [id number] Ambulatory ABuilding:[facility] 05/05/2025 [id number] PONCHO DIAS Ambulatory Building:Un known [facility] 05/04/2025/05/05/20 25 [id number] BRADY GREENWOOD MD Ambulatory Buildin 0Room: 310[facility] 05/01/2025/05/01/20 25 [id number] Ambulatory CHBuilding: [facility] 04/16/2025/04/16/20 [id number] Ambulatory CHBuilding: [facility] 04/08/2025/04/08/20 [id number] Ambulatory CHBuilding: [facility] 03/27/2025/03/27/20 25 [id number] CISCO URRUTIA DO Emergency Buildin 2Room: ERBed: 6 [facility] 03/21/2025/03/21/20 [id number] Ambulatory Building:OP [facility] 03/14/2025/03/14/20 [id number] Ambulatory CHBuilding: [facility] 03/11/2025 [id number] Ambulatory ABuilding:[facility] 03/06/2025/03/06/20 25 [id number] Ambulatory ABuilding:[facility] 02/27/2025/02/28/20 25 [id number] Ambulatory ABuilding:[facility] 02/22/2025 [id number] Ambulatory ABuilding:[facility] 02/20/2025/02/21/20 25 [id number] Ambulatory ABuilding:[facility] 02/13/2025/02/14/20 25 [id number] Ambulatory ABuilding:[facility] 02/08/2025/02/09/20 25 [id number] Ambulatory ABuilding:[facility] 12/13/2024/12/14/19 25 [id number] Ambulatory CHBuilding: [facility] 12/12/2024/12/13/19 25 [id number] [facility]/08[facility]11[facility]08[facility]19 25 [id number] Ambulatory CHBuilding: [facility] 10/11/2024/10/11/19 25 [id number] Ambulatory CHBuilding: [facility] 10/04/2024/10/04/19 25 [id number] Ambulatory Building:ON [address] 10/01/2024 [id number] [facility]17[facility]19 25 [id number] JUDAH DAWSON Emergency Buildin 2Room: ERBed: W1 [facility] 08/31/2024/08/31/20 24 [id number] JANE GALLOWAY Amb[facility] 08/21/2024/08/21/20 24 [id number] Ambulatory CHBuilding: [facility] 08/07/2024/08/11/20 24 [id number] JANE GALLOWAY Ambulatory Building:[facility] 07/30/2024/07/30/20 24 [id number] PONCHO DIAS Ambulatory Building:Un known [facility] 06/27/2024/06/27/20 24 [id number] Ambulatory CHBuilding: [facility] 06/24/2024/06/24/20 24 [id number] SANGITA LÓPEZ Emergency Buildin 2Room: ERBed: 3 [facility] 06/19/2024/06/19/20 24 [id number] Ambulatory CHBuilding: [facility] 06/14/2024/06/14/20 24 [id number] LOREN REVELES MD Emergency Buildin 2Room: ERBed: 3 [facility] PAYERS ENCOUNTER GUARANTOR PAYER SUBSCRIBER SOURCE 06/10/2025 KASI WESLEYB: [place] [address]Gdy: () Primary Insurance:[facility]ENIXTutor TechnologiesMethod[facility] Number: [id number] Date:3444-01-76Xlhf Name:KARTHIK Carbajal4HENRIQUE MOSER [address]SK: KASI WESLEYB: [id number] [place] [address]Zss: (HP) [facility] 06/05/2025 KASI NEWBYBRIDGEDOB: [place] [address]Gnl: () Primary Insurance:[facility] INSGr[facility] Number: [id number] Date:5135-18-80Hbgu Name:HENRIQUE GARAY [address]XV: KASI NEWBYBRIDGEDOB: [id number] [place] [address]Ivg: () [facility] 05/31/2025 KASI NEWBYBRIDGEDOB: [place] [address]Uso: () Primary Insurance:[facility] INSGr[facility] Number: [id number] Date:5130-09-23Ssdp Name:HENRIQUE GARAY [id number]: KASI NEWBYBRIDGEDOB: [id number] [place] [address]Nfe: () [facility] 05/24/2025 KASI NEWBYBRIDGEDOB: [place] [address]Siu: () Primary Insurance:[facility] INSRockingham Memorial Hospitaly Number: [id number] Date:3160-49-02Wxmg Name:HENRIQUE GARAY [address]VF: KASI NEWBYBRIDGEDOB: [id number] [place] [address]Wke: () [facility] 05/21/2025 KASI NEWBYBXSIJCGIOC602 [place], [place] [address]Mqc: (HP) Primary Insurance:[facility] OHPolicy Number: [id number] Date:2024-06-12 KASI NEWBYBRIDGEDOB: [id number] [place], [place] [address]Ath: (HP) [facility] 05/17/2025 KASI NEWBYBRIDGEDOB: [place] [address]Uxf: (HP) Primary Insurance:[facility] INSOHIOHEALTH SOUTHEASTERN MEDICAL CENTERolicy Number: [id number] Date:2310-85-71Mbzc Name:HENRIQUE GARAY [address]WZ: KASI NEWBYBRIDGEDOB: [id number] [place] [address]Hxx: (HP) [facility] 05/15/2025 KASI NEWBYXHAOVRSSNJ959 [place], [place] [address]Mae: (HP) Primary Insurance:[facility] [place]Policy Number: [id number] Date:2024-06-12 KASI NEWBYBRIDGEDOB: [id number] [place], [place] [address]Gqk: (HP) [facility] 05/06/2025 KASI NEWBYBRIDGEDOB: [place] [address]Zmj: (HP) Primary Insurance:[facility] INSOHIOHEALTH SOUTHEASTERN MEDICAL CENTERolicy Number: [id number] Date:4107-90-16Mriv Name:HENRIQUE GARAY [address]HS: KASI NEWBYBRIDGEDOB: [id number] [place] [address]Qrs: (HP) [facility] 05/05/2025 KASI NEWBYBRIDGEDOB: [place], [place] [address]Cbb: (HP) Primary Insurance:[facility] OUTPATIENTPolicy Number: [id number] Date:Plan Name:X1 KASI NEWBYBRIDGEDOB: [id number] [place] [address] [facility] 05/04/2025 KASI NEWBYBRIDGEDOB: [place], [place] [address]Gai: (HP) Primary Insurance:[facility] [employer] OUTPATIENTPolicy Number: [id number] Date:Plan Name:X1 KASI NEWBYBRIDGEDOB: [id number] [place] [address] [facility] 05/01/2025 KASI NEWBYSBCXOEHIUM[address] [place] [address]Abg: (HP) Primary Insurance[facility]Policy Number: [id number] Date:2024-06-12 KASI WARRENDOB: [id number] [place], [place] [address]Nji: (HP) [facility] 03/27/2025 KASI NEWBYBRIDGEDOB: [place], [place] [address]Usy: (HP) Primary Insurance:[facility] OUTPATIENTPolicy Number: [id number] Date:Plan Name:X1 KASI NEWBYBRIDGEDOB: [id number] [place] [address] [facility] 03/21/2025 KASI NEWBYBRIDGEDOB: [place], [place] [address]Ojj: (HP) Primary Insurance:[facility] CARITASPolicy Number: [id number] Date:2974-49-13CS ROCIO [address] [place] [address]PA: KASI NEWBYBRIDGEDOB: [id number] [place] [address] [facility] 03/21/2025 Secondary Insurance:MEDICAIDPolic y Number: [id number] Date:7610-51-12FE ROCIO AlvaradoDAVIDFREEMAN ORTHOPAEDICS [place] [address]QQ: KASI Hoffmann DRAWBRIDGEDOB: [id number] [place] [address] [facility] 03/14/2025 KAS[address] [address]Mww: (HP) Primary Insurance:[facility] OHJefferson Hospitaly Number: [id number] Date:2024-06-12 KASI NEWBYBRIDGEDOB: [id number] [place], [place] [address]Qos: (HP) [facility] 03/11/2025 KASI Hoffmann DRAWBRIDGEDOB: [place] [address]Blm: (HP) Primary Insurance:[facility] CARITAS INSCOPolicy Number: [id number] Date:8216-85-86Fxxm Name:Yobani CHAN [address] [address]BP: KASI Hoffmann DRAWBRIDGEDOB: 6648-03-57EWZ601 [place] [address]Cuh: (HP) [facility] 03/06/2025 KASI NEWBYBRIDGEDOB: [place] [address]Uaz: (HP) Primary Insurance:[facility] INSCOPolicy Number: [id number] Date:4904-82-26Djui Name:HENRIQUE GARAY [address]AH: KASI NEWBYBRIDGEDOB: [id number] [place] [address]Vws: (HP) [facility] 02/27/2025 KASI NEWBYBRIDGEDOB: [place] [address]Vrt: () Primary Insurance:[facility] INSCOPolicy Number: [id number] Date:6617-43-13Scic Name:HENRIUQE GARAY [id number]: KASI NEWBYBRIDGEDOB: [id number] [place] [address]Fda: (HP) [facility] 02/22/2025 KASI NEWBYBRIDGEDOB: [place] [address]Tfh: () Primary Insurance:[facility] INSCOPolicy Number: [id number] Date:5422-05-86Wqhx Name:HENRIQUE GARAY [id number]: KASI NEWBYBRIDGEDOB: [id number] [place] [address]Gsq: () [facility] 02/20/2025 KASI NEWBYBRIDGEDOB: [place] [address]Gco: () Primary Insurance:[facility] INSCOPolicy Number: [id number] Date:1041-90-17Yfto Name:HENRIQUE GARAY [address]TT: KASI Hoffmann DRAWBRIDGEDOB: [id number] [place] [address]Ych: () [facility] 02/13/2025 KASI NEWBYBRIDGEDOB: [place] [address]Rtw: (HP) Primary Insurance:[facility] INSRockingham Memorial Hospitaly Number: [id number] Date:3306-42-28Jntq Name:HENRIQUE GARAY [address]DE: KASI NEWBYBRIDGEDOB: [id number] [place] [address]Kvz: () [facility] 02/08/2025 KASI NEWBYBRIDGEDOB: [place] [address]Rdf: () Primary Insurance:[facility] INSGr[facility] Hospital Number: [id number] Date:8859-21-88Mriq Name:HENRIQUE GARAY [address]UJ: KASI NEWBYBRIDGEDOB: [id number] [place] [address]Rbq: () [facility] 2024 KASI NEWBYZLYCEVRMCC177 [place], [place] [address]Kvn: () Primary Insurance:[facility] Rankiny Number: [id number] Date: KASI NEWBYBRIDGEDOB: 4971-05-88SLP139 [place], [place] [address]Geb: () [facility] 12/12/2024 KASI Hoffmann DRAWBRIDGEDOB: [place], [place] [address]Mjn: (HP) Primary Insurance:[facility] CARATRIUM HEALTH PROVIDENCESPolicy Number: [id number] Date:2493-06-74PX[address] [address]NC: KASI Hoffmann DRAWBRIDGEDOB: 4986-87-60XDH894 [place] [address] [facility] 10/11/2024 [place], [place] [address]Kte: (HP) Primary Insurance:[facility] Rankiny Number: [id number] Date:2024-06-12 KASI NEWBYBRIDGEDOB: [id number] [place], [place] [address]Otr: (HP) [facility] 10/04/2024 KASI NEWBYBRIDGEDOB: [place] [address]Zny: (HP) [facility] CARITASPolicy Number: [id number] Date:[id number] [address]BL: KASI NEWBYBRIDGEDOB: [id number] [place] [address] [facility] 10/01/2024 KASI Hoffmann DRAWBRIDGEDOB: [place], [place] [address]Mpc: (HP) [facility] Insurance:[facility] Number: [id number] Date:[id number] [address]BY: KASI NEWBYBRIDGEDOB: [id number] [place] [address] [facility] 10/01/2024 Secondary Insurance:MEDICAIDPolic y Number: [id number] Date:2024-06-124136-26-29[address] [address]WC: KASI NEWBYBRIDGEDOB: [id number] [place] [address] [facility] 10/01/2024 Tertiary Insurance:HEALTHSMARTPo licy Number: [id number] Date: 2024-08-06 KASI NEWBYBRIDGEDOB: [id number] [place] [address] [facility] 10/01/2024 Tertiary Insurance[facility] Number: [id number] Date:2024-05-072024-08-06 KASI NEWBYBRIDGEDOB: [id number] [place] [address] [facility] 10/01/2024 Tertiary Insurance:HEALTHSMARTPo licy Number: [id number] Date: 2019-09-12 KASI WARRENDOB: [id number] [place] [address] [facility] 10/01/2024 Tertiary Insurance:COMMERCIALPol icy Number: [id number] Date: 0420-23-48[address] [place] [address]ZY: KASI WARRENDOB: [id number] [place] [address] [facility] 09/17/2024 KASI NEWBYBRIDGEDOB: [place], [place] [address]Hos: () Primary [facility] OUTPATIENTPolicy Number: [id number] Date:Plan Name:Siomara WARRENDOB: [id number] [place] [address] [facility] 08/31/2024 KASI WARRENDOB: [place], [place] [address]Kzr: (HP) [facility] CARITASPolicy Number: [id number] Date:[id number] [address]DF: KASI NEWBYBRIDGEDOB: [id number] [place], [place] [address] [place] [address] 08/07/2024 KASI NEWBYBRIDGEDOB: [place], [place] [address]Xyn: (HP) [facility] CARITASPolicy Number: [id number] Date:[id number] [address]BN: KASI NEWBYBRIDGEDOB: [id number] [place], [place] [address] [place] [address] 08/07/2024 Secondary Insurance:MEDICAIDPolic y Number: [id number] Date:[id number] [address]NG: KASI WARRENDOB: [id number] [place], [place] [address] [place] [address] 08/07/2024 Tertiary Insurance:[facility] Systemy Number: [id number] Date: 2024-08-06 KASI NEWBYBRIDGEDOB: [id number] [place], [place] [address] [place] [address] 07/30/2024 KASI NEWBYBRIDGEDOB: [place], [place] [address]Thi: (HP) [facility] OUTPATIENTPolicy Number: [id number] Date:Plan Name:Siomara WARRENDOB: [id number] [place], [place] [address] [place] [address] 06/27/2024 KASI WARREN134 [place], [place] [address]Xtc: (HP) [facility] Number: [id number] Date:2024-06-12 KASI NEWBYBRIDGEDOB: [id number] [place], [place] [address]Yjn: (HP) [facility] 06/24/2024 KASI NEWBYBRIDGEDOB: [place], [place] [address]Jsq: (HP) Primary Insurance:[facility] OUTPATIENTPolicy Number: [id number] Date:Plan Name:X1 KASI WARRENDOB: [id number] [place] [address] [facility] 06/14/2024 KASI NEWBYREBECCADOB: [place], [place] [address]Bal: (HP) Primary Insurance:[facility] OUTPATIENTPolicy Number: [id number] Date:Plan Name:X1 KASI NEWBYREBECCADOB: [id number] [place] [address] [facility]
--- NOTE | 2025-06-10 15:29 | CT_ITS ---
PROCEDURE: EXTREMITY UPPER WITHOUT CONTRA 06/10/2025 REASON FOR EXAM: PLANNING FOR TSA / BLUEPRINT CUTS TECHNIQUE: Procedure Code: [id number] Modality: CT Procedure: EXTREMITY UPPER WITHOUT CONTRA Coronal and Sagittal reconstruction series were provided. One or more dose reduction techniques were used (e.g., Automated exposure control, adjustment of the mA and/or kV according to patient size, use of iterative reconstruction technique. RADIATION DOSE SUMMARY: DLP: 1472 mGycm COMPARISON: None FINDINGS: There is severe osteoarthritis of the glenohumeral articulation with flattening of the articular surfaces and large marginal osteophytes. No acute fracture or dislocation is identified. There is no significant muscular atrophy. There is moderate AC joint hypertrophy without evidence of separation. There is no soft tissue mass or adenopathy. There is no visible atherosclerosis. CT/Extremity Upper without Contra IMPRESSION: There is severe osteoarthritis of the glenohumeral articulation with flattening of the articular surfaces and large marginal osteophytes. Reading Location: [facility]
== END | disposition home or self-care (01) ==
LOC: CT 15:28
PROVIDERS: PCP Family Medicine; Referring Provider Orthopaedic Surgery Sports Medicine; Visit Provider Orthopaedic Surgery Sports Medicine
DX: M25.511 Pain in right shoulder (principal); M19.011 Primary osteoarthritis, right shoulder
CPT/HCPCS: 73200

== ENCOUNTER → 2025-07-05 | Outpatient (CLI) | payer MEDICAID, SELFPAY ==
--- NOTE | 2025-07-05 10:50 | MRI_ITS ---
PROCEDURE: UPPER EXT JOINT ONLY(ROUTINE) 07/05/2025 REASON FOR EXAM: PLANNING FOR TSA TECHNIQUE: Procedure Code: [id number] Modality: MR Procedure: UPPER EXT JOINT ONLY(ROUTINE) T1, T2, PD, multiplanar and multisequence images of the right shoulder were obtained without IV contrast administration. COMPARISON: None FINDINGS: Bone Marrow: There is subcortical edema in the superior humeral head. Subcortical cyst formation is noted in the glenoid with adjacent subcortical edema and severe degenerative changes. Rotator cuff: There is no significant muscular atrophy. There is moderate distal subscapularis tendinopathy without full-thickness tear or retraction. There is moderate distal supraspinatus tendinopathy with no tear. The infraspinatus, appears intact. The teres minor appears intact. AC joint: The AC joint is aligned with no evidence of separation. There is a trace AC joint effusion. There is moderate AC joint hypertrophy. There is a type 2 acromion. Labrum: There is a tear of the labrum from the 10 o'clock 12 o'clock position. Biceps tendon: The biceps tendon is present in the biceps tendon groove, with intact anchors. Effusion: There is a small joint effusion. There is a trace amount of fluid in the subacromial subdeltoid bursa. There is no soft tissue mass or cyst. MRI/Upper Ext Joint Only(Routine) IMPRESSION: There is subcortical edema in the superior humeral head. Subcortical cyst formation is noted in the glenoid with adjacent subcortical ed louise and severe degenerative changes. There is moderate distal subscapularis tendinopathy without full-thickness tear or retraction. There is moderate distal supraspinatus tendinopathy with no tear. There is a trace AC joint effusion. There is moderate AC joint hypertrophy. There is a tear of the labrum from the 10 o'clock 12 o'clock position. There is a small joint effusion. There is a trace amount of fluid in the subacromial subdeltoid bursa. [facility]
== END | disposition home or self-care (01) ==
LOC: MRI 10:48
PROVIDERS: PCP Family Medicine; Referring Provider Orthopaedic Surgery Sports Medicine; Visit Provider Orthopaedic Surgery Sports Medicine
DX: M25.511 Pain in right shoulder (principal)
CPT/HCPCS: 73221

== ENCOUNTER → 2025-07-15 | Outpatient (CLI) | payer MEDICAID, SELFPAY ==
--- NOTE | 2025-07-15 11:10 | RAD_ITS ---
RAD/Lumbar Spine 2 or 3 Views
== END | disposition home or self-care (01) ==
LOC: RAD 11:06
PROVIDERS: PCP Family Medicine; Referring Provider Anesthesiology; Visit Provider Anesthesiology
DX: M47.816 Spondylosis without myelopathy or radiculopathy, lumbar region (principal)
CPT/HCPCS: 72100